=== PATIENT | male | born 1940 | race African-American/Black ===

== ENCOUNTER 2023-06-25 06:30 | Inpatient (IN) | payer OTHER, SELFPAY ==
--- NOTE | 2023-06-10 11:06 | CM ---
Patient is scheduled for an elective L TKR on 06/25/23. Spoke with patient prior to surgery via telephone. Introduced role of Orthopedic Navigator. Patient reports that he lives with his in a multi story home. There are no steps to enter, five
steps to the second floor, five to the third and then five more to his bedroom. He currently functions independently. He has a cane and shower seat. He has had VN services. PCP is Minnie Arreguin.
Discussed orthopedic program and post surgical plans. Reviewed anticipated length of stay and that goal is for him to return home at discharge. Also reviewed outpatient PT. Patient is in agreement with tentative plan and will go directly to
outpatient PT at [facility]. He will have support from his when he goes home.
Patient will complete online education.
Plan: Orthopedic Navigator will remain available to assist with the care of patient and will reassess discharge needs after surgery.
[2023-06-11 13:28] VITALS: BMI 39.9
[2023-06-11 13:45] LABS: Hematocrit 34.1 % (39.0-52.0); Mean Corp Hgb Conc. 32.3 g/dL (33.0-37.0); Mean Corpuscular Hgb 27.2 pg (27.0-31.0); Mean Corpuscular Volume 84.4 fL (80.0-94.0); Mean Platelet Volume 9.3 fL (7.4-10.4); Platelet Count 268 10^3/uL (130-400); Red Blood Cell Count 4.04 10^6/uL (4.70-6.10); Red Cell Dist. Width 14.6 % (11.5-14.5); White Blood Cell Count 6.7 10^3/uL (4.8-10.8)
[2023-06-11 14:24] LABS: Glycohemoglobin (HgbA1c) 6.1 % (4.0-5.6)
[2023-06-11 14:26] LABS: ALT (SGPT) 18 U/L (0-50); AST (SGOT) 22 U/L (17-59); Albumin 3.8 g/dl (3.5-5.0); Alkaline Phosphatase 75 U/L (38-126); Blood Urea Nitrogen 18 mg/dl (9-20); Calcium 8.7 mg/dl (8.4-10.2); Carbon Dioxide 30 mmol/L (22-30); Chloride 102 mmol/L (98-107); Estimated Creatinine Clearance 79 ml/min; Glucose 84 mg/dl (70-99); Potassium 3.8 mmol/L (3.5-5.1); Sodium 138 mmol/L (135-145); Total Bilirubin 0.5 mg/dl (0.2-1.3); Total Protein 7.3 g/dl (6.3-8.2); eGFR > 60.00
[2023-06-11 16:24] VITALS: BMI 39.9
[2023-06-25] VITALS (16 sets, daily range): BP systolic 103–153; BP diastolic 52–91; PULSE 93; BMI 39.9
[2023-06-25 09:01] LABS: Glucose - Point of Care 88 mg/dl (70-99)
[2023-06-25] MEDS: TYLENOL 650 MG PO ×3 (09:10→20:28)
[2023-06-25] MEDS: CELEBREX 200 MG PO (09:10)
[2023-06-25] MEDS: BACTROBAN NASAL 1 GRAM NASAL (09:11)
[2023-06-25] MEDS: NORMOSOL-R 1000 IV (09:11)
[2023-06-25 12:08] LABS: Glucose - Point of Care 99 mg/dl (70-99)
[2023-06-25] MEDS: ROXICODONE 5 MG PO (13:15)
[2023-06-25] MEDS: FLOMAX 0.400000000000000022 MG PO (13:17)
[2023-06-25] MEDS: NSS 1000 IV (13:17)
[2023-06-25 13:35] LABS: Glucose - Point of Care 142 mg/dl (70-99)
[2023-06-25] MEDS: ZOFRAN 4 MG IV (13:44)
[2023-06-25] MEDS: DILAUDID 0.25 MG IV ×2 (13:46→15:06)
[2023-06-25 16:59] LABS: Glucose - Point of Care 151 mg/dl (70-99)
[2023-06-25] MEDS: GLUCOPHAGE 1000 MG PO (17:38)
[2023-06-25] MEDS: ANCEF 5 IV (17:38)
[2023-06-25] MEDS: NOVOLOG FLEXPEN-MODERATE RESISTANCE 1 UNITS SC (18:21)
[2023-06-25] MEDS: ULTRAM 50 MG PO (20:28)
[2023-06-25] MEDS: ELIQUIS 2.5 MG PO (20:28)
[2023-06-25] MEDS: SENOKOT 17.1999999999999993 MG PO (20:28)
[2023-06-25] MEDS: LIPITOR 20 MG PO (20:29)
[2023-06-25] MEDS: BACTROBAN 2% OINTMENT 1 APPLIC NASAL (20:29)
[2023-06-25] MEDS: COLACE 100 MG PO (20:29)
[2023-06-25] MEDS: PROTONIX 40 MG PO (20:29)
[2023-06-25 22:04] LABS: Glucose - Point of Care 169 mg/dl (70-99)
[2023-06-26] MEDS: TYLENOL PO ×2 (01:30→05:04)
[2023-06-26] MEDS: ANCEF 5 IV (02:15)
[2023-06-26 03:43] VITALS: BP 136/61
[2023-06-26 06:03] VITALS: BMI 40.1
[2023-06-26 07:07] LABS: Glucose - Point of Care 126 mg/dl (70-99)
[2023-06-26 07:58] VITALS: BP 144/63
[2023-06-26] MEDS: NOVOLOG FLEXPEN-MODERATE RESISTANCE SC (08:25)
[2023-06-26] MEDS: ULTRAM 50 MG PO (08:28)
[2023-06-26] MEDS: TYLENOL 650 MG PO (08:28)
[2023-06-26] MEDS: GLUCOPHAGE 1000 MG PO (08:29)
[2023-06-26] MEDS: TOPROL XL 25 MG PO (08:29)
[2023-06-26] MEDS: SENOKOT 17.1999999999999993 MG PO (08:29)
[2023-06-26] MEDS: FLOMAX 0.400000000000000022 MG PO (08:29)
[2023-06-26] MEDS: COLACE 100 MG PO (08:30)
[2023-06-26] MEDS: BACTROBAN 2% OINTMENT 1 APPLIC NASAL (08:30)
[2023-06-26] MEDS: ELIQUIS 2.5 MG PO (08:33)
--- NOTE | 2023-06-26 08:46 | CM ---
Addendum entered by Lilly Carlisle 06/26/23 10:36:
Patient did well with therapy. He has no concerns about going home.
Original Note:
Reviewed chart and held rounds with PT, OT and nursing. Patient admitted as planned for elective L TKR. Met with patient at bedside. Confirmed information previously obtained for assessment. Also discussed discharge plans. The plan is for patient to
return home at discharge. He will have support from his when he goes home. Patient will go directly to outpatient PT and will come to [facility]. He has an appointment scheduled for Friday, 06/26.
Patient has a shower seat at home. Discussed need to obtain cane. He will need a rolling walker issued prior to discharge; PT aware and script obtained.
He will use [facility] pharmacy for discharge prescriptions.
Discharge plans were reviewed with patient's on 06/25/23.
[2023-06-26 09:08] VITALS: BP 114/58; PULSE 93
[2023-06-26] MEDS: FLUSH (NSS) 2 FLUSH IV (09:33)
[2023-06-26] MEDS: ZOFRAN 4 MG IV (09:33)
--- NOTE | 2023-06-26 10:53 | W.PN.ORTHO ---
Today's Communication / Plan
-
d/c
Assessment
.
Distal Motor Intact: Yes
Dressing:
Clean, dry and intact.
Assessment:
Tnrwti-[id number] pain med
Plan
.
Surgery / Date: Robby Chu 06/25/23
DVT Prophylaxis: Other (Eliquis)
Activity:
Out of bed.
PT/OT
Discharge Plan: Home w/ Outpatient PT
Subjective
.
.:
Patient resting comfortably.
Nausea
Vital Signs and Labs
.
Vital Signs and Labs:
Lab Results
06/11/23 13:19
06/11/23 13:19
Temp Pulse Resp BP Pulse Ox
98.5 F 86 18 144/83 93
06/26/23 07:58 06/26/23 08:29 06/26/23 07:58 06/26/23 08:29 06/26/23 07:58
Non-invasive Hgb result: 12.2
Physical Exam
-
HEENT: No pallor, cyanosis, or jaundice. Throat clear.
NECK: Supple. No JVD.
RESPIRATORY: Lungs clear to auscultation.
CVS: S1, S2 normal. RRR.� No murmur, rub or gallop.
ABDOMEN: Soft, non-tender. No distension. BS+/normal.
EXTREMITIES: strength equal, no calf pain with palpation
ORGANIZATIONAL EFFECTIVENESS CONSULTANT: AOx3. No focal deficits. electric motor analyst grossly intact
--- NOTE | 2023-06-26 11:00 | W.DS.TRANS ---
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
-
Discharge Instructions:
Discharge Diagnosis/Procedures L TKA Dr. Chu 06/25/23
Diet Diabetic, Carb Controlled
Activity With Walker
Driving Restrictions No driving
Bathing Restrictions OK to Shower
Other Services PT
Instructions:
Stand-Alone Forms: Total Hip/Knee Replacement D/C
Changes to Home Medications: Yes
Discharge Medications:
DC Medications w/original date entered in [employer]
atorvastatin 10 mg tablet 20 mg PO HS High cholesterol 04/06/13
fluticasone propionate 50 mcg/actuation nasal spray,suspension 2 spry intranasal BID Allergies 04/06/13
esomeprazole magnesium 40 mg capsule,delayed release (Nexium) 40 mg PO HS Gastrointestinal issue 02/07/19
metformin 1,000 mg tablet 1,000 mg PO BID Diabetes 02/07/19
albuterol sulfate 90 mcg/actuation aerosol inhaler 2 puff inhalation R Q4HPRN PRN sob 03/16/20
allopurinol 300 mg tablet 300 mg PO HS PRN gout 03/16/20
lisinopril 10 mg tablet 10 mg PO HS Blood pressure 03/16/20
metoprolol succinate 25 mg tablet,extended release 24 hr 25 mg PO DAILY #30 tabs 08/17/21
tamsulosin 0.4 mg capsule 0.4 mg PO DAILY #30 caps 08/17/21
torsemide 10 mg tablet 10 mg PO DAILY 06/10/23
mupirocin 2 % topical ointment 1 applic topical BID infection prevention #1 tube 06/11/23
Saccharomyces boulardii 250 mg capsule (Florastor) 250 mg PO BID #1 cap 06/26/23
acetaminophen 325 mg tablet 650 mg PO QID #0 tabs 06/26/23
apixaban 5 mg tablet (Eliquis) 2.5 mg PO BID dvt prophylaxis/afibb #0 tabs 06/26/23
cefadroxil 500 mg capsule 500 mg PO BID infection prevention #14 caps 06/26/23
docusate sodium 100 mg capsule (Colace) 100 mg PO BID stool softner #1 cap 06/26/23
gabapentin 300 mg capsule 300 mg PO HS sleep/pain #10 caps 06/26/23
hydrocodone 5 mg-acetaminophen 325 mg tablet 1 tab PO Q6H PRN 1 tab moderate pain or 2 if severe #30 tabs 06/26/23
magnesium hydroxide 400 mg/5 mL oral suspension (Milk of Magnesia) 30 ml PO HS PRN Constipation #1 mL 06/26/23
ondansetron 4 mg disintegrating tablet 4 mg PO Q6H PRN n/v #20 tabs 06/26/23
sennosides 8.6 mg tablet (Senokot) 17.2 mg PO BID laxative #2 tabs 06/26/23
Home Medication Changes
cefadroxil 500 mg capsule 500 mg PO BID infection prevention #14 caps 06/26/23�
gabapentin 300 mg capsule 300 mg PO HS sleep/pain #10 caps 06/26/23�
hydrocodone 5 mg-acetaminophen 325 mg tablet 1 tab PO Q6H PRN 1 tab moderate pain or 2 if severe #30 tabs 06/26/23�
ondansetron 4 mg disintegrating tablet 4 mg PO Q6H PRN n/v #20 tabs 06/26/23�
Pending Results: No
[2023-06-26 11:05] VITALS: BP 114/58; PULSE 93
[2023-06-26] MEDS: NORCO 5/325 1 TABLET PO (11:14)
[2023-06-26 11:27] LABS: Glucose - Point of Care 157 mg/dl (70-99)
[2023-06-26 11:52] VITALS: BP 126/61
== END 2023-06-26 12:36 | disposition home or self-care (01) | DRG 470 ==
LOC: 2 SOUTH 06:30
PROVIDERS: ADMITTING PHYSICIAN Orthopaedic Surgery; FAMILY PHYSICIAN Family Medicine
PROC: 0SRD0J9 Replacement of Left Knee Joint with Synthetic Substitute, Cemented, Open Approach (ICD-10-PCS; 2023-06-25)
PROC: 5A09357 Assistance with Respiratory Ventilation, Less than 24 Consecutive Hours, Continuous Positive Airway Pressure (ICD-10-PCS; 2023-06-26)
DX: M17.12 Unilateral primary osteoarthritis, left knee (principal); I48.92 Unspecified atrial flutter; E66.01 Morbid (severe) obesity due to excess calories; E11.9 Type 2 diabetes mellitus without complications; D64.9 Anemia, unspecified; I11.0 Hypertensive heart disease with heart failure; E78.5 Hyperlipidemia, unspecified; I48.0 Paroxysmal atrial fibrillation; I25.10 Atherosclerotic heart disease of native coronary artery without angina pectoris; K21.9 Gastro-esophageal reflux disease without esophagitis; G47.33 Obstructive sleep apnea (adult) (pediatric); J45.909 Unspecified asthma, uncomplicated; M10.9 Gout, unspecified; N40.0 Benign prostatic hyperplasia without lower urinary tract symptoms; R11.0 Nausea; Z68.39 Body mass index [BMI] 39.0-39.9, adult; Z79.84 Long term (current) use of oral hypoglycemic drugs; Z79.01 Long term (current) use of anticoagulants; Z91.041 Radiographic dye allergy status; Z91.013 Allergy to seafood
CPT/HCPCS: 36415; 73560; 80053; 82962; 83036; 85027; 86850; 86900; 86901; 87070; 97110; 97116; 97162; 97166; 97530; 97535; C1713; C1776

== ENCOUNTER 2023-07-07 13:19 | Outpatient (RCR) | payer OTHER, SELFPAY | END 2023-07-07 23:59 | disposition home or self-care (01) | LOC: RPT 13:19 | PROVIDERS: ATTENDING PHYSICIAN Orthopaedic Surgery; FAMILY PHYSICIAN Family Medicine | DX: Z47.1 Aftercare following joint replacement surgery (principal); Z96.652 Presence of left artificial knee joint; R26.89 Other abnormalities of gait and mobility; Z73.6 Limitation of activities due to disability | CPT/HCPCS: 97110; 97140; 97162; 97530 ==

== ENCOUNTER 2023-07-08 21:51 | Inpatient (IN) | payer OTHER, SELFPAY ==
[2023-07-08 18:36] VITALS: BP 147/79
--- NOTE | 2023-07-08 19:09 | ED.GENMED ---
History of Present Illness
General
Chief Complaint: Musculo-Skeletal Complaint
Source: patient
Exam Limitations: none
Time Seen by Provider: 07/08/23 18:49
Travel History
Have you had any contact with someone who has COVID-19?: No
Do you have any symptoms of coronavirus? Fever > 100 degrees, chills, cough, shortness of breath, sore throat, loss of taste or smell, muscle aches, or headache?: No
History of Present Illness
History of Present Illness:
82-year-old male total knee replacement about 2 weeks ago. Was doing well until suddenly about 1 hour prior to ER arrival he developed severe generalized knee pain. Has had bloody drainage since the surgery. No fever
Past History
Past History
ED Past Medical History: Asthma, CHF, COPD, HTN, Hypercholesterolemia, NIDDM and Other (Dyspnea, sleep apnea, pulmonary hypertension)
ED Past Surgical History: Cardiac (Cardiac catheterization which showed normal coronaries, but mild pulmonary hypertension) and Other (Trigger finger surgery)
Social History
Tobacco: Former smoker
Alcohol: None
Drug: None
Personal:
Living: with family
Employment: Retired
Family History
Family History: Other (daughter has severe trigeminal neuralgia)
Review of Systems
Review of Systems
All Other Systems: Not applicable
Constitutional: Denies fever
Respiratory: Reports no symptoms
Cardiac: Reports no symptoms
Phy Exam
Physical Exam
Physical Exam:
GENERAL: Alert and oriented. Appears uncomfortable but nontoxic
EYE: Orbits normal.
NECK: Supple
CARDIAC: Regular rate and rhythm without any obvious murmurs.
LUNGS: Clear breath sounds,normal
ABDOMEN: Soft, without focal tenderness or distention
NEUROLOGICAL: Alert and oriented , grossly non-focal
SKIN: Warm and dry
MUSCULOSKELETAL: Moderate swelling diffusely to the left lower leg. Good distal pulses and color. Good capillary refill. Lower sensation motor or sensory neurovascular intact. Large vertical incision to the anterior patella consistent with a
knee replacement. Inferior border has some slight bloody oozing. No purulent drainage. No surrounding erythema. Significant swelling to the joint.
PSYCH: Normal and appropriate interaction.
Course
Orders/Labs/Results
Orders:
Orders
07/08/23 18:41
Knee, Left 4 or More Views [CR Knee - Left 4 Or More View*] Urgent
Comment: TKR 06/25/2023
Reason For Exam: pain
07/08/23 19:06
IV Insert/Care/Rem.- Treatment PRN
Acetaminophen 1000MG/100Ml [Ofirmev] 1,000 mg in 100 ml IV ONCE
Acetaminophen IV Indication:: ED Narcotic Naive Pt-ONCE
HYDROmorphone [Dilaudid] 0.5 mg IV NOW STA
US Periph Venous LOWER Ext LT Urgent
Comment:
Reason For Exam: Swelling/left leg. Recent knee replacement
07/08/23 19:10
Ondansetron Injectable [Zofran] 4 mg .ROUTE .STK-MED ONE
07/08/23 19:14
Basic Metabolic Panel Urgent
Complete Blood Count/With Diff Urgent
07/08/23 19:16
Ondansetron Injectable [Zofran] 4 mg IV NOW STA
07/08/23 20:53
Knee Immobilizer Left-Treatmen ONCE
07/08/23 20:[address] Non Medication Order As Directed
Physician Order: aquacel dressing
Abnormal Lab Results
07/08/23
19:14
WBC 15.0 H 10^3/uL
(4.8-10.8)
RBC 3.44 L 10^6/uL
(4.70-6.10)
Hgb 9.2 L g/dL
(13.0-18.0)
Hct 28.6 L %
(39.0-52.0)
MCH 26.7 L pg
(27.0-31.0)
MCHC 32.2 L g/dL
(33.0-37.0)
RDW 16.1 H %
(11.5-14.5)
Plt Count 469 H 10^3/uL
(130-400)
Abs Immat Gran (auto) 0.1 H 10^3/uL
(0-0.05)
Absolute Neuts (auto) 11.4 H 10^3/uL
(1.4-6.5)
Absolute Monos (auto) 1.3 H 10^3/uL
(0.1-0.6)
Immature Gran % 0.7 H %
(0-0.5)
Neutrophils % 75.7 H %
(42.2-75.2)
Lymphocytes % 13.7 L %
(20.5-51.1)
Sodium 131 L mmol/L
(135-145)
Chloride 92 L mmol/L
(98-107)
Glucose 157 H mg/dl
(70-99)
07/08/23 19:14
07/08/23 19:14
Vital Signs
Initial and Last Documented VS:
Initial Vital Signs
Temp Pulse Resp BP Pulse Ox
98.9 F 104 20 147/79 95
07/08/23 18:36 07/08/23 18:36 07/08/23 18:36 07/08/23 18:36 07/08/23 18:36
Last Documented Vital Signs
Temp Pulse Resp BP Pulse Ox
98.9 F 104 20 147/79 95
07/08/23 18:36 07/08/23 18:36 07/08/23 18:36 07/08/23 18:36 07/08/23 18:36
*Radiology
Radiology exam reviewed: preliminary read by ED provider (Negative) and radiology read reviewed (Negative x-ray. Negative leg ultrasound)
*Pulse Oximetry
Patient hypoxic: no
*Critical Care Note
Total Time (30-74mins, 75-104mins- exclusive of procedures): Not Applicable
Update Note
Update Note:
Patient appears more comfortable but still with ongoing moderate pain. Sure what to make of the leukocytosis. Clinically more suspicious of a hemarthrosis which could cause a reactive leukocytosis but at least have to consider an infectious
etiology. With the leukocytosis and level of pain patient will be admitted. All testing reviewed with orthopedics.
ED Attending Note
-
Portions of this chart may have been created with voice recognition software.� Occasional wrong word or��sound alike� substitutions may have occurred due to the inherent limitations of voice recognition software.
Discharge Plan
Departure
Patient Disposition: Admit
Date of Disposition: 07/08/23
Time of Disposition: 21:22
Presentation/result/management discussed w/ accepting MD/DO: Orthopedics
Discharge Problem:
Severe left knee pain, Recent left knee arthroplasty, Probable hemarthrosis, Anemia, To consider infectious issue
Prescriptions:
No Action
fluticasone propionate 1 SPRAY spray,suspension
2 spry intranasal BID
atorvastatin 10 MG tablet
20 mg PO HS
metformin 1,000 MG tablet
1,000 mg PO BID
esomeprazole magnesium [Nexium] 40 MG capsule,delayed release(DR/EC)
40 mg PO HS
allopurinol 300 MG tablet
300 mg PO HS PRN (Reason: gout)
albuterol sulfate 1 PUFF HFA aerosol inhaler
2 puff inhalation R Q4HPRN PRN (Reason: sob)
tamsulosin 0.4 MG capsule
0.4 mg PO DAILY Qty: 30 0RF
metoprolol succinate 25 MG tablet extended release 24 hr
25 mg PO DAILY Qty: 30 0RF
torsemide 10 mg Tablet
10 mg PO DAILY
gabapentin 300 mg capsule
300 mg PO HS Qty: 10 0RF
spironolactone 25 mg tablet
12.5 mg PO DAILY
glimepiride 2 mg tablet
2 mg PO DAILY
bumetanide 1 mg tablet
1 mg PO DAILY
oxycodone 5 mg tablet
5 mg PO Q6H PRN (Reason: moderate pain)
Patient Comments:
07/08/2023: last filled 07/07/23, 30 tabs for 5 days from [facility]
oxycodone 5 mg tablet
10 mg PO Q6H PRN (Reason: severe pain)
Patient Comments:
07/08/2023: last filled 07/07/23, 30 tabs for 5 days from [facility]
dutasteride 0.5 mg capsule
0.5 mg PO DAILY
Jardiance 10 mg tablet
10 mg PO DAILY
Eliquis 5 mg tablet
5 mg PO BID
Referrals:
Minnie Arreguin DO [Family Provider] -
Interventions
Interventions:
*Risk Screen - Suicide Last Done: 07/08/23 18:58
*General Assessment Last Done: 07/08/23 18:59
*Neglect/Abuse Screening Last Done: 07/08/23 18:58
ED- Fall Risk Assessment Last Done: 07/08/23 19:24
*ED COVID-19 Vaccine History Last Done: 07/08/23 18:59
ED-Musculoskeletal Assessment Last Done: 07/08/23 19:24
[2023-07-08] MEDS: DILAUDID 0.5 MG IV ×2 (19:15→23:19)
[2023-07-08] MEDS: ZOFRAN 4 MG IV (19:16)
[2023-07-08] MEDS: OFIRMEV 100 IV (19:16)
[2023-07-08 19:27] LABS: % Basophils 0.2 % (0-2); % Eosinophils 0.9 % (0-6); % Immature Granulocytes 0.7 % (0-0.5); % Lymphocytes 13.7 % (20.5-51.1); % Monocytes 8.8 % (1.7-9.3); % Neutrophils 75.7 % (42.2-75.2); Absolute Eosinophils 0.1 10^3/uL (0-0.7); Absolute Immature Granulocytes 0.1 10^3/uL (0-0.05); Absolute Lymphocytes 2.1 10^3/uL (1.2-3.4); Absolute Monocytes 1.3 10^3/uL (0.1-0.6); Absolute Neutrophils 11.4 10^3/uL (1.4-6.5); Hematocrit 28.6 % (39.0-52.0); Hemoglobin 9.2 g/dL (13.0-18.0); Mean Corp Hgb Conc. 32.2 g/dL (33.0-37.0); Mean Corpuscular Hgb 26.7 pg (27.0-31.0); Mean Corpuscular Volume 83.1 fL (80.0-94.0); Mean Platelet Volume 8.6 fL (7.4-10.4); Nucleated Red Blood Cells % 0 % (-); Platelet Count 469 10^3/uL (130-400); Red Blood Cell Count 3.44 10^6/uL (4.70-6.10); Red Cell Dist. Width 16.1 % (11.5-14.5)
[2023-07-08 19:40] LABS: Blood Urea Nitrogen 20 mg/dl (9-20); Calcium 9.1 mg/dl (8.4-10.2); Carbon Dioxide 29 mmol/L (22-30); Chloride 92 mmol/L (98-107); Glucose 157 mg/dl (70-99); Potassium 4.4 mmol/L (3.5-5.1); Sodium 131 mmol/L (135-145); eGFR > 60.00
--- NOTE | 2023-07-08 21:14 | HPS.HSE ---
Addendum entered and electronically signed by Frank Urrutia MD 07/08/23 22:27:
Patient seen and examined independently with SUPERINTENDENT METERS.� 82-year-old male past medical history of osteoarthritis status post left total knee arthroplasty on 06/24, diabetes, obesity, anemia, hypertension, hyperlipidemia, paroxysmal atrial fibrillation on
Eliquis, HFpEF, nonobstructive CAD, GERD, obstructive sleep apnea, asthma, gout, BPH presenting for worsening left knee pain today.� He has been having intermittent bleeding from the inferior part of the postsurgical wound since surgery and pain but
symptoms worsening today.� He denies any fevers or chills.
Venous ultrasound left lower extremity does not show any evidence of DVT.� X-ray of the knee shows small suprapatellar joint effusion.� Labs show leukocytosis, hemoglobin 9.2 from 11 prior to surgery.
On examination left knee incision site appears to be scab with bleeding at the inferior border.� No obvious signs of infection.� There are some ecchymosis of the left medial thigh.��
Anemia appears to be due to postoperative blood loss. Will hold Eliquis.� Ortho consulted.� Will start cefazolin for potential wound infection.
Original Note:
Family Physician
-
Family Physician: Minnie Arreguin
Chief Complaint
-
Left knee pain
History of Present Illness
82-year-old male status post left knee arthroplasty 06/25/2023 who states he had increased pain today he has had constant oozing of blood on the left lateral aspect of his knee. He has a linear longitudinal scab in place with surrounding ecchymosis,
swelling ecchymosis extending into upper medial thigh. Patient denies any injury although states he started therapy had 3 sessions 1 being yesterday. He reports today he has had increased pain he did take 2 oxycodone for. He denies fever, chills,
chest pain, palpitations, shortness breath, cough, abdominal pain, nausea, vomit, diarrhea, urinary symptoms
He has PMH paroxysmal A-fib HTN, COPD, CHF preserved EF, HLD, morbid obesity, DM2, gout, BPH
Medical History
Past Medical History
Past Medical History: Reports Other
Additional Past Medical History:
paroxysmal A-fib
HTN
COPD
CHF preserved EF
HLD,
morbid obesity
DM2
gout
BPH
Past Surgical History: Reports Other
Additional Past Surgical History:
Trigger finger release
status post left knee arthroplasty 06/25/2023
Hemorrhoidectomy
A-fib ablation
Social History
Tobacco: Non-smoker
Alcohol: None
Drug: None
Personal:
Living: With Family ( )
Employment: Retired
Family History
Family History: Other (Mother Alzheimer's, father unknown, brother DM 2, sister renal failure, other sister CHF, other sister NV)
Allergies / Home Medications
Allergies reflects when Allergies were last updated in [employer].
Home Medications with original date entered in [employer]
Allergy/Medication List:
Allergies
Allergy/AdvReac Type Severity Reaction Status Date / Time
iodine Allergy Swelling Verified 07/08/23 18:35
shellfish derived Allergy SWELLING Verified 07/08/23 18:35
AND HIVES
Home Medications
atorvastatin 10 mg tablet 20 mg PO HS High cholesterol 04/06/13
fluticasone propionate 50 mcg/actuation nasal spray,suspension 2 spry intranasal BID Allergies 04/06/13
esomeprazole magnesium 40 mg capsule,delayed release (Nexium) 40 mg PO HS Gastrointestinal issue 02/07/19
metformin 1,000 mg tablet 1,000 mg PO BID Diabetes 02/07/19
albuterol sulfate 90 mcg/actuation aerosol inhaler 2 puff inhalation R Q4HPRN PRN sob 03/16/20
allopurinol 300 mg tablet 300 mg PO HS PRN gout 03/16/20
metoprolol succinate 25 mg tablet,extended release 24 hr 25 mg PO DAILY #30 tabs 08/17/21
tamsulosin 0.4 mg capsule 0.4 mg PO DAILY #30 caps 08/17/21
torsemide 10 mg tablet 10 mg PO DAILY 06/10/23
gabapentin 300 mg capsule 300 mg PO HS sleep/pain #10 caps 06/26/23
apixaban 5 mg tablet (Eliquis) 5 mg PO BID dvt prophylaxis/afibb 07/08/23
bumetanide 1 mg tablet 1 mg PO DAILY 07/08/23
dutasteride 0.5 mg capsule 0.5 mg PO DAILY 07/08/23
empagliflozin 10 mg tablet (Jardiance) 10 mg PO DAILY 07/08/23
glimepiride 2 mg tablet 2 mg PO DAILY 07/08/23
oxycodone 5 mg tablet 5 mg PO Q6H PRN moderate pain 07/08/23
oxycodone 5 mg tablet 10 mg PO Q6H PRN severe pain 07/08/23
spironolactone 25 mg tablet 12.5 mg PO DAILY 07/08/23
Review of Systems
-
History Source: Patient and Family (Son at bedside)
A 12 point ROS was completed and negative except as noted: Yes
Constitutional: Denies Fever
EENT: Denies Sore Throat or Runny Nose
Respiratory: Denies Cough or Trouble Breathing
Cardiac: Denies Chest Pain, Diaphoresis, Palpitations or Syncope
Abdomen/GI: Denies Abdominal Pain, Nausea, Vomiting, Diarrhea, Constipated or Bloody Stools
: Denies Dysuria, Frequency, Flank Pain, Incontinence or Difficulty Voiding
Musculoskeletal: Reports Joint Pain (Left knee) and Joint Swelling (Left knee with sanguinous scant drainage lateral aspect, ecchymosis to knee and medial aspect of thigh)
Skin: Denies Itching or Rash
Neurological: Denies Dizzy or Headache
Endocrine: Reports No Symptoms
Hematologic/Lymphatic: Reports No Symptoms
Psych: Reports Calm
Physical Exam
Vital Signs
Vital Signs
Temp Pulse Resp BP Pulse Ox
98.9 F 104 20 147/79 95
07/08/23 18:36 07/08/23 18:36 07/08/23 18:36 07/08/23 18:36 07/08/23 18:36
Physical Exam
General: Pain; No Fever or Chills
HEENT: NormoCephalic, Anicteric, Moist mucous membranes, PERRLA and Arbutus Conjunctivae
Respiratory: Clear; No Wheezes, Rales or Rhonchi
Cardiac: S1/S2, Regular Rhythm and Peripheral Edema (Left lower extremity); No Murmur, Rub or Gallop
GI: Soft, Non Tender, Non Distended, Normal Bowel Sounds and No Hepatosplenomegaly
Rectal: Deferred by Provider
Genito-urinary: Deferred by me
Musculoskeletal: No Clubbing, No Cyanosis and Edema, Left Lower Extremity (Left knee with sanguinous scant drainage lateral aspect with no surrounding erythema but ecchymosis to knee and medial aspect of thigh); No Edema, Left Upper Extremity or
Edema, Right Upper Extremity
Skin: Warm and Dry; No Rash
Neuro: AO x 3, No Motor Deficits, Nonfocal/grossly intact, Cranial Nerves Intact and No Sensory Deficits; No Slurred Speech, Facial Droop or Tremors
Psych: Calm
Laboratory Results
-
07/08/23 19:14
07/08/23 19:14
Impression/Plan
-
Impression/plan:
Admit to [facility]
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
scant bleeding surgical site left lateral aspect
#Left knee OA
WBC 15, afebrile
-Consult Dr. Chu-Dr. Wiseman made aware
- Iv Ancef
-Hold Eliquis
-Continue oxycodone 5 mg moderate pain, 10 mg severe pain
Peripheral vascular ultrasound no DVT
Knee x-ray left: Left total knee replacement satisfactory position small suprapatellar joint effusion
#Postop anemia
Hgb 9.2 was 11 on 06/11/2023
#Paroxysmal A-fib
#Dx 10/01/2021
#History of ablation
-Hold Eliquis
-Continue metoprolol succinate 25 mg daily
#DM2/diabetic neuropathy
Accu-Cheks with SSI, check HgbA1c
-Continue metformin without milligrams twice daily, glimepiride 2 mg p.o. daily, Jardiance 10 mg daily
-Continue gabapentin 300 mg at bedtime
#Chronic CHF preserved EF
I/O, daily weights
Continue Jardiance, Bumex 1 mg daily, torsemide 10 mg daily
#HLD
Continue atorvastatin 20 mg at bedtime
#GERD
Continue Nexium 40 mg at bedtime
#BPH
Continue dutasteride, Flomax 0.4 mg daily
#Gout
-Continue allopurinol
Morbid obesity due to excess calorie consumption
Weight loss recommended, 1800 ADA low-fat diet
DVT prophylaxis
Hold current Eliquis
DNR per patient with son at bedside
[2023-07-08 21:50] VITALS: BMI 34.9
[2023-07-08 22:12] VITALS: BP 127/59
[2023-07-08] MEDS: ROXICODONE 10 MG PO (22:21)
[2023-07-08] MEDS: ANCEF 5 IV (22:21)
[2023-07-08] MEDS: FLUSH (NSS) 1 FLUSH IV (22:22)
[2023-07-08] MEDS: NEURONTIN 300 MG PO (23:20)
[2023-07-08] MEDS: LIPITOR 20 MG PO (23:20)
[2023-07-08] MEDS: PROTONIX 40 MG PO (23:20)
[2023-07-08 23:30] VITALS: BP 157/78; BMI 34.5
--- NOTE | 2023-07-08 23:45 | PTCARENOTE ---
Pt. arrived to from ER around 2119 via stretcher and walked to room bed with walker and steady gait. Shortly after pt. c/o 10/10 L knee pain and calling out in pain, house PROPERTY CUSTODIAN contacted and pain meds given, see MAR. Otherwise pt. is A&Ox3, even
and unlabored breathing on RA, and denies other complaints. Pt. educated on policies and plan of care. Bed locked and in lowest position, side rails in place, call light within reach, and questions answered at time of assessment.
[2023-07-09 03:00] VITALS: BP 120/63
[2023-07-09 03:36] VITALS: BMI 34.5
[2023-07-09] MEDS: ROXICODONE 10 MG PO ×3 (04:13→21:31)
[2023-07-09 05:38] VITALS: BMI 34.8
[2023-07-09] MEDS: DILAUDID 0.5 MG IV (05:47)
[2023-07-09] MEDS: ANCEF 5 IV ×3 (05:47→21:53)
[2023-07-09] MEDS: FLUSH (NSS) 3 FLUSH IV (05:47)
[2023-07-09 06:27] LABS: % Basophils 0.3 % (0-2); % Eosinophils 1.2 % (0-6); % Immature Granulocytes 0.7 % (0-0.5); % Lymphocytes 13.4 % (20.5-51.1); % Monocytes 9.5 % (1.7-9.3); % Neutrophils 74.9 % (42.2-75.2); Absolute Eosinophils 0.1 10^3/uL (0-0.7); Absolute Immature Granulocytes 0.1 10^3/uL (0-0.05); Absolute Lymphocytes 1.6 10^3/uL (1.2-3.4); Absolute Monocytes 1.1 10^3/uL (0.1-0.6); Hematocrit 25.2 % (39.0-52.0); Mean Corp Hgb Conc. 31.7 g/dL (33.0-37.0); Mean Corpuscular Hgb 26.8 pg (27.0-31.0); Mean Corpuscular Volume 84.6 fL (80.0-94.0); Mean Platelet Volume 8.8 fL (7.4-10.4); Nucleated Red Blood Cells % 0 % (-); Platelet Count 434 10^3/uL (130-400); Red Blood Cell Count 2.98 10^6/uL (4.70-6.10); Red Cell Dist. Width 15.9 % (11.5-14.5)
--- NOTE | 2023-07-09 06:29 | DOWNTIME ---
There was a [employer] Client Media Intern Downtime on 07/09/2023 from 0100 to 07/09/2023 at 0322. Downtime documentation of patient's care, including medication administrations, has been reconciled in the electronic record per guidelines. Refer to the
patient's paper chart under the miscellaneous tab to see printed paper medication records and downtime forms.
[2023-07-09 06:55] LABS: ALT (SGPT) 19 U/L (0-50); AST (SGOT) 24 U/L (17-59); Albumin 3.4 g/dl (3.5-5.0); Alkaline Phosphatase 76 U/L (38-126); Blood Urea Nitrogen 19 mg/dl (9-20); Calcium 8.7 mg/dl (8.4-10.2); Carbon Dioxide 29 mmol/L (22-30); Chloride 92 mmol/L (98-107); Estimated Creatinine Clearance 91 ml/min; Glucose 95 mg/dl (70-99); Potassium 4.4 mmol/L (3.5-5.1); Sodium 130 mmol/L (135-145); Total Bilirubin 0.9 mg/dl (0.2-1.3); eGFR > 60.00
[2023-07-09 07:30] VITALS: BP 129/62
[2023-07-09 07:42] LABS: Glucose - Point of Care 105 mg/dl (70-99)
[2023-07-09] MEDS: NOVOLOG FLEXPEN-LOW RESISTANCE SC ×2 (07:48→17:22)
[2023-07-09] MEDS: GLUCOPHAGE 1000 MG PO ×2 (08:30→17:23)
[2023-07-09] MEDS: BUMEX 1 MG PO (08:30)
[2023-07-09] MEDS: TOPROL XL 25 MG PO (08:31)
[2023-07-09] MEDS: DEMADEX 10 MG PO (08:32)
[2023-07-09] MEDS: AMARYL 2 MG PO (08:33)
[2023-07-09] MEDS: ALDACTONE 12.5 MG PO (08:33)
[2023-07-09] MEDS: PROSCAR 5 MG PO (08:34)
[2023-07-09] MEDS: JARDIANCE 10 MG PO (08:34)
[2023-07-09] MEDS: FLOMAX 0.400000000000000022 MG PO (08:34)
[2023-07-09] MEDS: ProAIR HFA INHALER 2 PUFF INH (08:58)
--- NOTE | 2023-07-09 10:08 | W.PN.UPDATE ---
Update Note
Progress Note Update
Patient was seen and examined this morning. Patient is status post left total knee arthroplasty [address] Chu admitted to the increase sudden pain without injury or event and some mild bleeding at the distal incision send staple
removal. On examination there is generalized swelling as expected and he is neurovascular intact however pain is significant with range of motion 5 to 20 degrees with reported outpatient PT. Discussed with attending.
Recommend knee immobilizer in extension to avoid any tension on the incision for 1 week. May be weightbearing as tolerated utilizing the knee immobilizer. Will obtain inflammatory markers for trending purposes if concern elevates for
periprosthetic joint infection. Recommend outpatient follow-up in 1 week for skin check and will continue to follow while admitted.
[2023-07-09] MEDS: MILK OF MAGNESIA 30 ML PO (10:46)
[2023-07-09] MEDS: ROXICODONE 5 MG PO (10:49)
[2023-07-09 10:53] VITALS: BP 119/51; PULSE 74; O2SAT 94
[2023-07-09 10:55] VITALS: BP 119/51; PULSE 74; O2SAT 94
[2023-07-09 11:25] LABS: Erythrocyte Sed Rate 79 mm/hour (0-20)
[2023-07-09 11:26] LABS: Glucose - Point of Care 157 mg/dl (70-99)
--- NOTE | 2023-07-09 12:11 | W.PN.HOSP.TC ---
Today's Communication/Plan
-
Discussed with the patient and the nurse
Assessment / Plan
Assessment / Plan
Physical exam:
General: Awake, alert and oriented x3, not in distress and holds appropriate conversation.
HEENT: No active discharge, ecchymosis or bruising, moist lips, tongue and mucous membrane.
Eyes: No discharge or red conjunctiva, no nystagmus, pupils are reactive and equal
Neck:Supple, no JVD no bruit no goiter.
Respiratory: Normal AP contour and diameter, normal chest wall movement, normal respiratory effort, no respiratory distress,
Lungs: Good air entry bilaterally, no wheezing or rhonchi, no rales or crackles
Heart: S1, S2 regular, normal rate, no added sound.
Gastrointestinal: Positive bowel sounds, soft, nontender, no guarding or rigidity or organomegaly
Musculoskeletal: Swelling of the left knee and incision looks dry and no active discharge through it, left knee in immobilizer. Mild tenderness left knee, no chest wall abnormality or tenderness. All other joints and extremities have good range of
motion, no muscle tenderness or any joint swelling or tenderness.
Skin: Warm and dry, no ulceration, normal color.
Neurological: Awake, alert and oriented x3, no facial droop, speech clear and comprehensive, good muscle tone, normal sensory and motor function
Psychiatric: Normal mood, normal thought and judgment, normal affect,
Assessment and plan:
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
Most likely triggered by being on Eliquis, denies any trauma or accidental fall.
#Left knee OA
WBC 15, afebrile
-Ortho input appreciated, they recommended immobilizer.
- Iv Ancef
-Continue to hold Eliquis
-Continue oxycodone 5 mg moderate pain, 10 mg severe pain
Peripheral vascular ultrasound no DVT
Knee x-ray left: Left total knee replacement satisfactory position small suprapatellar joint effusion
#Postop anemia, post left knee replaced
Hgb 9.2 was 11 on 06/11/2023, trending down hemoglobin is 8 today
Likely secondary to postoperative blood loss anemia specially been on Eliquis.
Continue to monitor
Above transfusion threshold
Recheck hemoglobin
Ortho input appreciated
Constipation:
Patient admitted did not move his bowels in the last 5-day but passes gas and no nausea vomiting abdominal pain possible secondary to decreased mobility and pain medication
Given a dose of milk of magnesia
Add Colace 100 twice daily and reassess
Cholesterol hydration.
If did not move his bowels and may consider other modalities like suppository or enema.
#Paroxysmal A-fib
#Dx 10/01/2021
#History of ablation
-Hold Eliquis, risks of holding Eliquis
To the patient at increased risk for thromboembolism
-Continue metoprolol succinate 25 mg daily
#DM2/diabetic neuropathy
Accu-Cheks with SSI,
-Continue metformin without milligrams twice daily, glimepiride 2 mg p.o. daily, Jardiance 10 mg daily
-Continue gabapentin 300 mg at bedtime
Continue to monitor blood sugar closely
#Chronic CHF preserved EF
-No evidence of fluid overload
I/O, daily weights
Continue Jardiance, Bumex 1 mg daily, torsemide 10 mg daily
#HLD
Continue atorvastatin 20 mg at bedtime
#GERD
Continue Nexium 40 mg at bedtime
#BPH
Continue dutasteride, Flomax 0.4 mg daily
#Gout
-Continue allopurinol
Morbid obesity due to excess calorie consumption
Weight loss recommended, 1800 ADA low-fat diet
DVT prophylaxis
Hold current Eliquis
Add SCD
Will monitor for the next 24 hours and reassess especially hemoglobin trending down.
DNR per patient with son at bedside
Anticipated Discharge: 24 - 48 hours
Subjective/Interval History
-
Date of Service: July 09, 2023
Seen and examined, awake and alert, denies any fall or accident, no active discharge from the left knee incision given no bleeding.
Admit the pain is better controlled right now, no fever or chill or cough or congestion, no weakness or numbness in extremities, no hematuria or any rectal bleed.
Kody is on hold.
Admit did not move his bowels in the last 5 days but passes gas and there is no nausea or vomiting or abdominal pain.
Objective Data
-
Labs:
Laboratory Results
07/09/23
05:11
WBC 12.0 H
Hgb 8.0 L
Hct 25.2 L
Plt Count 434 H
Sodium 130 L
Potassium 4.4
Chloride 92 L
Carbon Dioxide 29
BUN 19
Creatinine 0.8
Glucose 95
Calcium 8.7
Total Bilirubin 0.9
AST 24
ALT 19
Alkaline Phosphatase 76
Vital Signs:
Vital Signs
Temp Pulse Resp BP Pulse Ox
98.3 F 74 16 129/62 95
07/09/23 07:30 07/09/23 09:04 07/09/23 09:04 07/09/23 08:33 07/09/23 09:04
I&O
07/08/23 07/09/23 07/10/23
07:59 07:59 07:59
Intake Total 480 / 480
Output Total 600 / 600
Balance -120 / -120
[2023-07-09] MEDS: NOVOLOG FLEXPEN-LOW RESISTANCE 1 UNITS SC (12:25)
[2023-07-09 15:30] VITALS: BP 125/60
--- NOTE | 2023-07-09 15:32 | CM ---
Spoke with patient to obtain information for assessment. Patient stated that he lives in a multi-story home with no steps with his spouse and grandkids.
Patient described himself as independent with his ADLs, personal care, bathing and dressing. He uses a walker to navigate the steps and a walker for long distances.
Patient stated that his family assists with order processor, cooking, cleaning and laundry. He does not drive but his is able to transport her to her appointments and takes her shopping.
Patient has never had VN services or been to a SNF in the past.
He has a prescription plan and he uses [facility] in [place] for all of his medications. His PCP is Dr. Minnie Chow.
Patient was firm that he does not want to go to a SNF post this admission. He was agreeable to VN services if indicated.
Plan: Case management will continue to follow and assist with discharge planning. Will watch for VN needs.
[2023-07-09 16:55] LABS: Glucose - Point of Care 118 mg/dl (70-99)
[2023-07-09 18:22] LABS: Hemoglobin 8.2 g/dL (13.0-18.0)
[2023-07-09] MEDS: COLACE 100 MG PO (21:53)
[2023-07-09] MEDS: LIPITOR 20 MG PO (21:54)
[2023-07-09] MEDS: NEURONTIN 300 MG PO (21:54)
[2023-07-09] MEDS: FLUSH (NSS) 2 FLUSH IV (21:54)
[2023-07-09] MEDS: PROTONIX 40 MG PO (21:54)
[2023-07-09 21:57] LABS: Glucose - Point of Care 89 mg/dl (70-99)
[2023-07-09 23:15] VITALS: BP 140/56
[2023-07-10] MEDS: ROXICODONE 10 MG PO ×2 (03:15→20:47)
[2023-07-10] MEDS: ProAIR HFA INHALER 2 PUFF INH ×2 (03:42→09:35)
[2023-07-10 04:55] LABS: % Basophils 0.3 % (0-2); % Eosinophils 1.9 % (0-6); % Immature Granulocytes 0.4 % (0-0.5); % Lymphocytes 17.8 % (20.5-51.1); % Monocytes 10.8 % (1.7-9.3); % Neutrophils 68.8 % (42.2-75.2); Absolute Eosinophils 0.2 10^3/uL (0-0.7); Absolute Immature Granulocytes 0.1 10^3/uL (0-0.05); Absolute Monocytes 1.2 10^3/uL (0.1-0.6); Absolute Neutrophils 7.9 10^3/uL (1.4-6.5); Hematocrit 26.6 % (39.0-52.0); Hemoglobin 8.4 g/dL (13.0-18.0); Mean Corp Hgb Conc. 31.6 g/dL (33.0-37.0); Mean Corpuscular Hgb 26.3 pg (27.0-31.0); Mean Corpuscular Volume 83.1 fL (80.0-94.0); Mean Platelet Volume 8.9 fL (7.4-10.4); Nucleated Red Blood Cells % 0 % (-); Platelet Count 397 10^3/uL (130-400); Red Cell Dist. Width 15.8 % (11.5-14.5); White Blood Cell Count 11.4 10^3/uL (4.8-10.8)
[2023-07-10] MEDS: FLUSH (NSS) 3 FLUSH IV (05:11)
[2023-07-10] MEDS: DILAUDID 0.5 MG IV (05:12)
[2023-07-10] MEDS: ANCEF 5 IV ×3 (05:12→22:40)
[2023-07-10 05:30] LABS: ALT (SGPT) 17 U/L (0-50); AST (SGOT) 29 U/L (17-59); Albumin 3.4 g/dl (3.5-5.0); Alkaline Phosphatase 78 U/L (38-126); Blood Urea Nitrogen 21 mg/dl (9-20); Calcium 8.9 mg/dl (8.4-10.2); Carbon Dioxide 25 mmol/L (22-30); Chloride 92 mmol/L (98-107); Estimated Creatinine Clearance 91 ml/min; Glucose 82 mg/dl (70-99); Potassium 4.5 mmol/L (3.5-5.1); Sodium 126 mmol/L (135-145); Total Bilirubin 1.1 mg/dl (0.2-1.3); Total Protein 7.3 g/dl (6.3-8.2); eGFR > 60.00
[2023-07-10 06:00] VITALS: BMI 34.9
[2023-07-10 07:45] VITALS: BP 133/66
[2023-07-10 08:24] VITALS: BP 133/66
[2023-07-10 08:38] LABS: Glucose - Point of Care 103 mg/dl (70-99)
[2023-07-10] MEDS: NOVOLOG FLEXPEN-LOW RESISTANCE SC ×3 (08:56→17:24)
[2023-07-10] MEDS: DILAUDID 2 MG PO ×2 (09:02→22:01)
[2023-07-10] MEDS: GLUCOPHAGE 1000 MG PO ×2 (09:05→16:36)
[2023-07-10] MEDS: BUMEX 1 MG PO (09:05)
[2023-07-10] MEDS: FLOMAX 0.400000000000000022 MG PO (09:05)
[2023-07-10] MEDS: DEMADEX 10 MG PO (09:05)
[2023-07-10] MEDS: JARDIANCE 10 MG PO (09:05)
[2023-07-10] MEDS: ALDACTONE 12.5 MG PO (09:06)
[2023-07-10] MEDS: AMARYL 2 MG PO (09:06)
[2023-07-10] MEDS: TOPROL XL 25 MG PO (09:06)
[2023-07-10] MEDS: PROSCAR 5 MG PO (09:06)
[2023-07-10] MEDS: COLACE 100 MG PO (09:06)
--- NOTE | 2023-07-10 09:42 | PN.CDI ---
CDI
- -
CDI:
Physician Documentation Request
Admit Date: 07/08/23 21:51
Dear Doctor Lan,
Patient admitted with left knee hemarthrosis status post left knee arthroplasty 06/25/2023.
Na levels documented below:
Laboratory Test
07/08/23 07/09/23 07/10/23
19:14 05:11 04:11
Sodium 131 L 130 L 126 L
Based on the above, please clarify in the progress notes, the appropriate diagnosis, if significant, that supports the above abnormalities and additional evaluation, monitoring and/or treatment rendered:
Hyponatremia
Insignificant abnormal lab findings
Other
Use of terms such as suspected, likely, concern for, or probable (associated with a specific diagnosis that is being evaluated, monitored, or treated as if it exists) are acceptable and can be coded in the inpatient setting, when documented at the
time of discharge.
Thank you,
Carrie COTE,RN,CCDS
CDI Specialist
Available via tiger text
Please use your independent medical judgment in providing your response.
[2023-07-10] MEDS: MILK OF MAGNESIA 30 ML PO (10:50)
[2023-07-10 11:36] LABS: Glucose - Point of Care 113 mg/dl (70-99)
--- NOTE | 2023-07-10 12:19 | W.PN.UPDATE ---
Update Note
Progress Note Update
82 year old male with sudden increase left knee pain 2 weeks s/p left TKA.
CRP 163
ESR 79
Afebrile. VSS.
Left knee: moderate diffuse swelling and tenderness to palpation. apprehensive to perform ROM. Aquacel with bloody drainage at distal portion. removed to reveal mild sanguinous oozing. No erythema or warmth.
Assessment: Left knee pain s/p left TKA.
Plan: Inflammatory markers elevated, but patient is only 2 weeks post op. Vital signs are stable, white count is trending down, and patient is afebrile. Would recommend continued observation and use of knee immobilizer for incision rest. He has
been on IV ancef, so any aspiration may be tainted by antibiotic use. Recommend serial ESR and CRP for trending purposes. Will change pain medications to see if this improves symptoms. Will continue to monitor response to medication changes.
--- NOTE | 2023-07-10 13:56 | W.PN.HOSP.TC ---
Addendum entered and electronically signed by Destiny Montenegro MD 07/10/23 17:06:
Other impression is hyponatremia, present on admission worsening likely secondary to pain
Monitoring recheck
If not improved then may consider fluid restriction
Original Note:
Today's Communication/Plan
-
All discussed with the patient
Discussed with the nurse
Assessment / Plan
Assessment / Plan
Physical exam:
General: Awake, alert and oriented x3, not in distress and holds appropriate conversation.
HEENT: No active discharge, ecchymosis or bruising, moist lips, tongue and mucous membrane.
Eyes: No discharge or red conjunctiva, no nystagmus, pupils are reactive and equal
Neck:Supple, no JVD no bruit no goiter.
Respiratory: Normal AP contour and diameter, normal chest wall movement, normal respiratory effort, no respiratory distress,
Lungs: Good air entry bilaterally, no wheezing or rhonchi, no rales or crackles
Heart: S1, S2 regular, normal rate, no added sound.
Gastrointestinal: Positive bowel sounds, soft, nontender, no guarding or rigidity or organomegaly
Musculoskeletal: Swelling of the left knee and incision looks dry and no active discharge through it, left knee in immobilizer. Mild tenderness left knee, no chest wall abnormality or tenderness. All other joints and extremities have good range of
motion, no muscle tenderness or any joint swelling or tenderness.
Skin: Warm and dry, no ulceration, normal color.
Assessment and plan:
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
Most likely triggered by being on Eliquis, denies any trauma or accidental fall.
Still having appreciating intractable pain he is able to pain medication
Inflammatory markers are elevated but he is on antibiotic
Ortho is on monitoring given to be in the hospital for now.
No planning for aspiration because patient already got antibiotic according to Ortho.
Adjustment of pain medication
Continue knee immobilizer.
#Left knee OA
WBC 15, afebrile
-Ortho input appreciated, they recommended immobilizer.
- Iv Ancef
-Continue to hold Eliquis
-Continue oxycodone 5 mg moderate pain, 10 mg severe pain
Peripheral vascular ultrasound no DVT
Knee x-ray left: Left total knee replacement satisfactory position small suprapatellar joint effusion
#Postop anemia, post left knee replaced
Hgb 9.2 was 11 on 06/11/2023, trending down hemoglobin is 8 today
Likely secondary to postoperative blood loss anemia specially been on Eliquis.
Continue to monitor
Above transfusion threshold
Recheck hemoglobin
Ortho input appreciated
Constipation:
Patient admitted did not move his bowels in the last 5-day but passes gas and no nausea vomiting abdominal pain possible secondary to decreased mobility and pain medication
Given a dose of milk of magnesia
Add Colace 100 twice daily and reassess
Cholesterol hydration.
If did not move his bowels and may consider other modalities like suppository or enema.
#Paroxysmal A-fib
#Dx 10/01/2021
#History of ablation
-Hold Eliquis, risks of holding Eliquis
To the patient at increased risk for thromboembolism
-Continue metoprolol succinate 25 mg daily
#DM2/diabetic neuropathy
Accu-Cheks with SSI,
-Continue metformin without milligrams twice daily, glimepiride 2 mg p.o. daily, Jardiance 10 mg daily
-Continue gabapentin 300 mg at bedtime
Continue to monitor blood sugar closely
#Chronic CHF preserved EF
-No evidence of fluid overload
I/O, daily weights
Continue Jardiance, Bumex 1 mg daily, torsemide 10 mg daily
#HLD
Continue atorvastatin 20 mg at bedtime
#GERD
Continue Nexium 40 mg at bedtime
#BPH
Continue dutasteride, Flomax 0.4 mg daily
#Gout
-Continue allopurinol
Morbid obesity due to excess calorie consumption
Weight loss recommended, 1800 ADA low-fat diet
DVT prophylaxis
Hold current Eliquis
Add SCD
Will monitor for the next 24 hours and reassess especially hemoglobin trending down.
DNR per patient with son at bedside on admission
Anticipated Discharge: 24 - 48 hours
Subjective/Interval History
-
Date of Service: July 10, 2023
Seen and examined, awake and alert, still having excruciating pain in the left knee but pain medication helped out as she gets frequent pain medication.
Afebrile, no nausea or vomiting, also having some redness around the left knee, left knee immobilizer, no active discharge or bleeding from the left knee.
He is status post 2-week post left knee replacement.
Did not move his bowels yet.
Objective Data
-
Labs:
Laboratory Results
07/10/23
04:11
WBC 11.4 H
Hgb 8.4 L
Hct 26.6 L
Plt Count 397
Sodium 126 L
Potassium 4.5
Chloride 92 L
Carbon Dioxide 25
BUN 21 H
Creatinine 0.8
Glucose 82
Calcium 8.9
Total Bilirubin 1.1
AST 29
ALT 17
Alkaline Phosphatase 78
Vital Signs:
Vital Signs
Temp Pulse Resp BP Pulse Ox
98.8 F 87 19 133/66 95
07/10/23 07:45 07/10/23 07:45 07/10/23 07:45 07/10/23 07:45 07/10/23 07:45
I&O
07/09/23 07/10/23 07/11/23
07:59 07:59 07:59
Intake Total 480 / 480 780 / 780
Output Total 600 / 600 1850 / 1850
Balance -120 / -120 -1070 / -1070
Review of Systems
-
All other systems: Reviewed and negative
--- NOTE | 2023-07-10 14:56 | CM ---
Discharge Plan of Care: Home with [facility] VN and PT services.
[2023-07-10 15:51] VITALS: BP 130/64
--- NOTE | 2023-07-10 16:02 | VNURNOTE ---
Home Health Liaison met with patient at 1500 to discuss [facility] nurse/therapy, visits, schedule and homebound status. Patient is agreeable and understands that visits at home will be 2-3 x per week to assess and teach medical management.
[facility] brochure provided with contact information. Patient is aware that [facility] will contact him for start of care in 1-2 days after discharge from .
[facility] referral completed by CM in [facility].
[2023-07-10] MEDS: GLYCERIN SUPPOSITORY ADULT 1 SUPP RECTAL (16:36)
[2023-07-10 17:23] LABS: Glucose - Point of Care 87 mg/dl (70-99)
[2023-07-10] MEDS: COLACE PO (20:04)
[2023-07-10] MEDS: LIPITOR 20 MG PO (21:01)
[2023-07-10] MEDS: PROTONIX 40 MG PO (21:01)
[2023-07-10] MEDS: NEURONTIN 300 MG PO (21:01)
[2023-07-10 21:53] LABS: Glucose - Point of Care 96 mg/dl (70-99)
[2023-07-10 23:20] VITALS: BP 102/70
[2023-07-11] MEDS: DILAUDID 2 MG PO ×3 (02:03→16:43)
[2023-07-11] MEDS: ROXICODONE 10 MG PO ×2 (04:12→13:36)
[2023-07-11] MEDS: ANCEF 5 IV ×2 (05:25→13:46)
[2023-07-11 06:00] VITALS: BMI 34.3
[2023-07-11 06:22] LABS: % Basophils 0.2 % (0-2); % Eosinophils 0.4 % (0-6); % Immature Granulocytes 0.6 % (0-0.5); % Monocytes 13.8 % (1.7-9.3); Absolute Eosinophils 0.1 10^3/uL (0-0.7); Absolute Immature Granulocytes 0.1 10^3/uL (0-0.05); Absolute Lymphocytes 1.1 10^3/uL (1.2-3.4); Absolute Monocytes 1.7 10^3/uL (0.1-0.6); Absolute Neutrophils 9.6 10^3/uL (1.4-6.5); Hematocrit 25.2 % (39.0-52.0); Hemoglobin 8.2 g/dL (13.0-18.0); Mean Corp Hgb Conc. 32.5 g/dL (33.0-37.0); Mean Corpuscular Hgb 26.9 pg (27.0-31.0); Mean Corpuscular Volume 82.6 fL (80.0-94.0); Nucleated Red Blood Cells % 0 % (-); Platelet Count 398 10^3/uL (130-400); Red Blood Cell Count 3.05 10^6/uL (4.70-6.10); Red Cell Dist. Width 15.9 % (11.5-14.5); White Blood Cell Count 12.6 10^3/uL (4.8-10.8)
[2023-07-11 06:46] LABS: ALT (SGPT) 17 U/L (0-50); AST (SGOT) 30 U/L (17-59); Albumin 3.3 g/dl (3.5-5.0); Alkaline Phosphatase 79 U/L (38-126); Blood Urea Nitrogen 25 mg/dl (9-20); Calcium 8.8 mg/dl (8.4-10.2); Carbon Dioxide 28 mmol/L (22-30); Chloride 90 mmol/L (98-107); Estimated Creatinine Clearance 81 ml/min; Glucose 77 mg/dl (70-99); Potassium 4.4 mmol/L (3.5-5.1); Sodium 125 mmol/L (135-145); Total Bilirubin 1.1 mg/dl (0.2-1.3); Total Protein 7.3 g/dl (6.3-8.2); eGFR > 60.00
[2023-07-11 07:21] LABS: Erythrocyte Sed Rate 143 mm/hour (0-20)
[2023-07-11 07:35] VITALS: BP 131/55
[2023-07-11 07:37] LABS: Glucose - Point of Care 82 mg/dl (70-99)
[2023-07-11] MEDS: NOVOLOG FLEXPEN-LOW RESISTANCE SC ×3 (07:58→16:34)
[2023-07-11] MEDS: ALDACTONE 12.5 MG PO (08:24)
[2023-07-11] MEDS: BUMEX 1 MG PO (08:24)
[2023-07-11] MEDS: DEMADEX 10 MG PO (08:25)
[2023-07-11] MEDS: PROSCAR 5 MG PO (08:25)
[2023-07-11] MEDS: COLACE 100 MG PO ×2 (08:25→19:56)
[2023-07-11] MEDS: GLUCOPHAGE 1000 MG PO ×2 (08:25→16:44)
[2023-07-11] MEDS: TOPROL XL 25 MG PO (08:25)
[2023-07-11] MEDS: AMARYL 2 MG PO (08:25)
[2023-07-11] MEDS: FLOMAX 0.400000000000000022 MG PO (08:25)
[2023-07-11] MEDS: JARDIANCE 10 MG PO (08:26)
[2023-07-11 11:03] LABS: Glucose - Point of Care 119 mg/dl (70-99)
--- NOTE | 2023-07-11 13:47 | W.PN.UPDATE ---
Update Note
Progress Note Update
Dr. Chu requested left total knee arthroplasty be aspirated today. After verbal consent from patient the left knee was meticulously cleaned with ChloraPrep. Using sterile gloves left knee aspiration was attempted and 3 mL blood was aspirated.
It was only enough to send for aerobic and anaerobic cultures. Ice knee and oxycodone as needed for pain control.
[2023-07-11 14:39] VITALS: BP 125/63; PULSE 87; O2SAT 99
--- NOTE | 2023-07-11 15:09 | W.PN.HOSP.TC ---
Today's Communication/Plan
-
fluid restriction
consult ID
dexamethasone x1
check uric acid
cont ancef
Assessment / Plan
Assessment / Plan
pt is an 82 year old male
right ankle exquisite pain, warmth -- suspect gout--check uric acid levels--dexamethasone x 1--ESR and CRP markedly elevated
Left knee hemarthrosis status post left knee arthroplasty 06/25/2023 (hx of OA)--Most likely triggered by being on Eliquis, denies any trauma or accidental fall--knee in immobilizer and having pain--knee aspirated by ortho, cultures pending--WBC
increased--consult ID, ESR and CRP elevated--apprec ortho following--cont left knee immobilizer--holding eliquis--US neg for DVT--Continue oxycodone 5 mg moderate pain, 10 mg severe pain
hyponatremia--dropping since admission--fluid restrict--may need renal input
acute blood loss anemia Postop complicated by eliquis-- status post left knee replaced 06/24--hgb 8s
Constipation--pt says didn't move bowels then said had BM yesterday--cont bowel regimen
Paroxysmal A-fib/History of ablation--Hold Eliquis--Continue metoprolol succinate 25 mg daily
DM2/diabetic neuropathy--Accu-Cheks with SSI--Continue metformin without milligrams twice daily, glimepiride 2 mg p.o. daily, Jardiance 10 mg daily-Continue gabapentin 300 mg at bedtime
Chronic CHF preserved EF--no exacerbation--I/O, daily weights--Continue Jardiance, Bumex 1 mg daily, torsemide 10 mg daily
HLD--Continue atorvastatin 20 mg at bedtime
GERD--Continue Nexium 40 mg at bedtime
BPH--Continue dutasteride, Flomax 0.4 mg daily
Gout--Continue allopurinol
Morbid obesity due to excess calorie consumption--Weight loss recommended, 1800 ADA low-fat diet
DVT prophylaxis--Hold current Eliquis
Code status --DNR was discussed with patient with son at bedside on admission
Anticipated Discharge: > 48 hours
Subjective/Interval History
-
Date of Service: July 11, 2023
pt c/o right ankle pain, low back pain, and left knee pain
Objective Data
-
Labs:
Laboratory Results
07/11/23
05:20
WBC 12.6 H
Hgb 8.2 L
Hct 25.2 L
Plt Count 398
Sodium 125 L
Potassium 4.4
Chloride 90 L
Carbon Dioxide 28
BUN 25 H
Creatinine 0.9
Glucose 77
Calcium 8.8
Total Bilirubin 1.1
AST 30
ALT 17
Alkaline Phosphatase 79
Vital Signs:
max temp for 24 hours
07/10/23
15:51
Temp 98.8 F
Vital Signs
Temp Pulse Resp BP Pulse Ox
97.8 F 81 18 131/55 95
07/11/23 07:35 07/11/23 07:35 07/11/23 07:35 07/11/23 07:35 07/11/23 08:00
I&O
07/10/23 07/11/23 07/12/23
06:59 06:59 06:59
Intake Total 780 / 780 780 / 780
Output Total 1850 / 1850 1840 / 1840
Balance -1070 / -1070 -1060 / -1060
Review of Systems
-
All other systems: Reviewed and negative
Physical Exam
-
General: Well Developed, Well Nourished and No Apparent Distress
HEENT: Normocephalic and Atraumatic
Respiratory: Clear to Auscultation; Negative Wheezes, Rales, Rhonchi or Crackles
Cardiac: Regular Rhythm and S1/S2
GI: Soft, Nontender, Nondistended and Normal Bowel Sounds
Musculoskeletal: No Clubbing, No Cyanosis, No Edema and Other (right ankle tender to touch, warm---left knee is in an immobilzer)
Neuro: Awake
Psych: Calm
[2023-07-11 15:30] VITALS: BP 137/61
[2023-07-11 15:38] LABS: Uric Acid 6.4 mg/dl (3.5-8.5)
--- NOTE | 2023-07-11 15:46 | CM ---
Patient seen at bedside with physician. PT stated that patient was 2 person assist today and would benefit from SNF. Patient complained of pain in ankle, knee and back. Pending physician assessment, patient plan was to go home with family supports
and [facility]. CM will need to review plan of care and patient participation with PT/OT over weekend to determine level of care at discharge. CM will continue to follow for discharge planning needs.
Plan; home with VN; [facility] vs SNF watch for PT/OT assessment.
[2023-07-11] MEDS: MIRALAX 17 GRAMS PO (15:59)
[2023-07-11] MEDS: DECADRON 10 MG IV (15:59)
[2023-07-11 16:33] LABS: Glucose - Point of Care 138 mg/dl (70-99)
--- NOTE | 2023-07-11 16:51 | CON.ID ---
Consultation
-
Date/Time Consultation Requested: 07/11/2023 1535
Date/Time Consultation Performed: 07/11/2023 1620
Requesting Provider: Dr. Barnes
Performing Provider: Dr. Husain
Reason for Consultation: Left knee swelling; elevated inflammatory markers
Chief Complaint / Past History
History of Present Illness
Beau Hyde is an 82-year-old male being evaluated at the request of Dr. Barnes in regards to left knee swelling and pain. History is obtained from chart review, along with patient interview.
The patient underwent a total left knee replacement on 06/25/2023, with a discharged the following day. In the interim, he reports that he was doing well, although there was some reported bloody drainage from a small portion of the incision.
He presents to the ER on 07/07 after the acute onset of severe knee pain 1 hour prior. He was found to have a leukocytosis, and he was placed on empiric antibiotics (cefazolin 1 g IV every 8 hours).
No history of recent fevers, chills. Knee was aspirated earlier today.
He additionally complains of right ankle discomfort. He has been started on steroids for suspected gout.
Past History
Additional Past Medical History:
Paroxysmal A-fib (on Eliquis)
HTN
Asthma
CHF
COPD
Dyslipidemia
DM
REYNALDO
Pulmonary HTN
Additional Past Surgical History:
PCTA
Trigger finger surgery
Left knee arthroplasty (06/25/2023)
Hemorrhoidectomy
Cardiac ablation
Allergy History:
iodine Allergy (Verified 07/08/23 18:35)
Swelling
shellfish derived Allergy (Verified 07/08/23 18:35)
SWELLING AND HIVES
Medications Reviewed: Yes
Current Antibiotics:
Cefazolin 1 g IV every 8 hours (day #4)
Social History
Tobacco: Non-Smoker
Alcohol: None
Drug: None
Personal:
Living: With Family
Employment: Retired
Family History
Family History: Not Pertinent
Review of Systems
Vital Signs
Temp Pulse Resp BP Pulse Ox
98.3 F 83 17 137/61 95
07/11/23 15:30 07/11/23 15:30 07/11/23 15:30 07/11/23 15:30 07/11/23 15:30
Physical Exam
Physical Exam
Constitutional: No Acute Distress, Comfortable and Non-toxic
Head: Normocephalic
Eyes: Pupils Equal, Pupils Round, No Conjunctival Hemorrhage and Sclera Anicteric
Oral: No Thrush and No Ulcers
Cardiovascular: Irregular Rate and S1/S2; Negative S3/S4 or Murmur
Pulmonary: Clear; Negative Wheezes, Rales or Rhonchi
Gastrointestinal: Soft and Non Tender
Extremities: Edema and Erythema (Minimal; left knee area); Negative Cyanosis
Musculoskeletal: Joint Swelling (Left knee) and Joint Effusion (Left knee)
Skin: Warm and Dry; Negative Rash or Jaundice
Neurological: Awake and Alert
Psychological: Calm
Lab / Diagnostic Study Results
07/11/23 05:20
07/11/23 05:20
Abs Immat Gran (auto) 0.1 10^3/uL (0-0.05) H 07/11/23 05:20
Absolute Neuts (auto) 9.6 10^3/uL (1.4-6.5) H 07/11/23 05:20
Absolute Lymphs (auto) 1.1 10^3/uL (1.2-3.4) L 07/11/23 05:20
Absolute Monos (auto) 1.7 10^3/uL (0.1-0.6) H 07/11/23 05:20
Absolute Basos (auto) 0.0 10^3/uL (0-0.2) 07/11/23 05:20
Immature Gran % 0.6 % (0-0.5) H 07/11/23 05:20
Neutrophils % 76.0 % (42.2-75.2) H 07/11/23 05:20
Lymphocytes % 9.0 % (20.5-51.1) L 07/11/23 05:20
Monocytes % 13.8 % (1.7-9.3) H 07/11/23 05:20
Eosinophils % 0.4 % (0-6) 07/11/23 05:20
Basophils % 0.2 % (0-2) 07/11/23 05:20
ESR 143 mm/hour (0-20) H 07/11/23 05:20
C-Reactive Protein 245.90 mg/L (0.0-10.00) H 07/11/23 05:20
Microbiology Results
Micro:
07/11/23 13:54 Wound Culture - Pending
Knee - Left Gram Stain - Preliminary
Assessment / Plan
Leukocytosis
Acute left knee pain; suspect hemarthrosis secondary to anticoagulation
- Currently assessing for joint infection (status post aspiration)
Right ankle pain; suspected gout
Elevated inflammatory markers
Paroxysmal A-fib (on Eliquis)
HTN
Asthma
CHF
COPD
Dyslipidemia
DM
REYNALDO
Pulmonary HTN
Recommendations:
Continue with empiric cefazolin for the present. Presumably it was initiated for the treatment of suspected left knee cellulitis. Increased to 2 g IV every 8 hours as estimated creatinine clearance would support this dose.
Await aspiration cultures; if negative, will discontinue further antibiotics.
Monitor white count and temperature curve.
[2023-07-11] MEDS: ANCEF 10 IV (18:25)
[2023-07-11] MEDS: TYLENOL 650 MG PO (19:56)
[2023-07-11] MEDS: NEURONTIN 300 MG PO (22:02)
[2023-07-11] MEDS: PROTONIX 40 MG PO (22:02)
[2023-07-11] MEDS: LIPITOR 20 MG PO (22:02)
[2023-07-11] MEDS: SENOKOT 17.1999999999999993 MG PO (22:02)
[2023-07-11 22:17] LABS: Glucose - Point of Care 147 mg/dl (70-99)
[2023-07-12] MEDS: ANCEF 10 IV ×3 (01:42→17:28)
[2023-07-12 06:00] VITALS: BMI 33.0
[2023-07-12 07:40] VITALS: BP 125/62
[2023-07-12 08:00] LABS: Glucose - Point of Care 110 mg/dl (70-99)
[2023-07-12] MEDS: NOVOLOG FLEXPEN-LOW RESISTANCE SC ×3 (08:48→17:28)
[2023-07-12] MEDS: ALDACTONE 12.5 MG PO (08:53)
[2023-07-12] MEDS: AMARYL 2 MG PO (08:54)
[2023-07-12] MEDS: BUMEX 1 MG PO (08:54)
[2023-07-12] MEDS: FLOMAX 0.400000000000000022 MG PO (08:55)
[2023-07-12] MEDS: PROSCAR 5 MG PO (08:55)
[2023-07-12] MEDS: COLACE 100 MG PO ×2 (08:55→20:30)
[2023-07-12] MEDS: TOPROL XL 25 MG PO (08:56)
[2023-07-12] MEDS: JARDIANCE 10 MG PO (08:56)
[2023-07-12] MEDS: GLUCOPHAGE 1000 MG PO ×2 (08:56→17:28)
[2023-07-12] MEDS: MIRALAX 17 GRAMS PO (08:57)
[2023-07-12] MEDS: TYLENOL 650 MG PO ×2 (08:59→20:30)
--- NOTE | 2023-07-12 09:17 | W.PN.HOSP.TC ---
Today's Communication/Plan
-
cont fluid restriction
cont PT/OT
apprec ID/ortho
Assessment / Plan
Assessment / Plan
pt is an 82 year old male
right ankle exquisite pain, warmth -- suspected gout despite uric acid level WNL--relief with IV decadron --ESR and CRP markedly elevated--labs pending today
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
elevated--apprec ortho following--cont left knee immobilizer--holding eliquis--US neg for DVT--Continue oxycodone 5 mg moderate pain, 10 mg severe pain
hyponatremia--dropping since admission--fluid restrict--may need renal input
acute blood loss anemia Postop complicated by eliquis-- status post left knee replaced 06/24--hgb 8s
Constipation--pt says didn't move bowels then said had BM yesterday--cont bowel regimen--start suppository
Paroxysmal A-fib/History of ablation--Hold Eliquis--Continue metoprolol succinate 25 mg daily
DM2/diabetic neuropathy--Accu-Cheks with SSI--Continue metformin without milligrams twice daily, glimepiride 2 mg p.o. daily, Jardiance 10 mg daily-Continue gabapentin 300 mg at bedtime
Chronic CHF preserved EF--no exacerbation--I/O, daily weights--Continue Jardiance, Bumex 1 mg daily, torsemide 10 mg daily
HLD--Continue atorvastatin 20 mg at bedtime
GERD--Continue Nexium 40 mg at bedtime
BPH--Continue dutasteride, Flomax 0.4 mg daily
Gout--Continue allopurinol
Morbid obesity due to excess calorie consumption--Weight loss recommended, 1800 ADA low-fat diet
DVT prophylaxis--Hold current Eliquis
Code status --DNR was discussed with patient with son at bedside on admission
Anticipated Discharge: > 48 hours
Subjective/Interval History
-
Date of Service: July 12, 2023
pt right ankle much improved after IV decadron--left knee still with pain--immobilizer off, still with Aquacel in place
Objective Data
-
Labs:
Laboratory Results
07/12/23
08:42
WBC Pending
Hgb Pending
Hct Pending
Plt Count Pending
Sodium Pending
Potassium Pending
Chloride Pending
Carbon Dioxide Pending
BUN Pending
Creatinine Pending
Glucose Pending
Calcium Pending
Total Bilirubin Pending
AST Pending
ALT Pending
Alkaline Phosphatase Pending
Vital Signs:
max temp for 24 hours
07/10/23
15:51
Temp 98.8 F
Vital Signs
Temp Pulse Resp BP Pulse Ox
97.9 F 70 16 125/62 94
07/12/23 07:40 07/12/23 08:56 07/12/23 07:40 07/12/23 08:56 07/12/23 07:40
I&O
07/11/23 07/12/23 07/13/23
06:59 06:59 06:59
Intake Total 780 / 780 420 / 420
Output Total 1840 / 1840 1924 / 1924
Balance -1060 / -1060 -1505 / -1505
Review of Systems
-
All other systems: Reviewed and negative
Musculoskeletal: Reports Joint Pain (left knee pain)
Physical Exam
-
General: Well Developed, Well Nourished and No Apparent Distress
HEENT: Normocephalic and Atraumatic
Respiratory: Clear to Auscultation; Negative Wheezes or Rhonchi
Cardiac: Regular Rhythm and S1/S2; Negative Murmur
GI: Soft, Nontender, Nondistended and Normal Bowel Sounds
Musculoskeletal: No Clubbing, No Cyanosis and Other (right ankle with full range of motion, swelling improved, no pain to palpation---left knee with Aquacel, small bandaid from knee aspiration, still with swelling noted)
Neuro: Awake and Alert
Psych: Calm
[2023-07-12 09:25] LABS: % Basophils 0.1 % (0-2); % Immature Granulocytes 0.5 % (0-0.5); % Lymphocytes 7.9 % (20.5-51.1); % Monocytes 9.6 % (1.7-9.3); % Neutrophils 81.9 % (42.2-75.2); Absolute Immature Granulocytes 0.1 10^3/uL (0-0.05); Absolute Lymphocytes 0.7 10^3/uL (1.2-3.4); Absolute Monocytes 0.9 10^3/uL (0.1-0.6); Absolute Neutrophils 7.6 10^3/uL (1.4-6.5); Hematocrit 26.7 % (39.0-52.0); Hemoglobin 8.6 g/dL (13.0-18.0); Mean Corp Hgb Conc. 32.2 g/dL (33.0-37.0); Mean Corpuscular Hgb 26.5 pg (27.0-31.0); Mean Corpuscular Volume 82.2 fL (80.0-94.0); Mean Platelet Volume 8.5 fL (7.4-10.4); Nucleated Red Blood Cells % 0 % (-); Platelet Count 447 10^3/uL (130-400); Red Blood Cell Count 3.25 10^6/uL (4.70-6.10); Red Cell Dist. Width 15.6 % (11.5-14.5); White Blood Cell Count 9.3 10^3/uL (4.8-10.8)
[2023-07-12 09:39] LABS: ALT (SGPT) 20 U/L (0-50); AST (SGOT) 39 U/L (17-59); Albumin 3.5 g/dl (3.5-5.0); Alkaline Phosphatase 84 U/L (38-126); Blood Urea Nitrogen 40 mg/dl (9-20); Calcium 8.9 mg/dl (8.4-10.2); Carbon Dioxide 29 mmol/L (22-30); Chloride 88 mmol/L (98-107); Estimated Creatinine Clearance 79 ml/min; Glucose 100 mg/dl (70-99); Potassium 4.5 mmol/L (3.5-5.1); Sodium 126 mmol/L (135-145); Total Protein 7.7 g/dl (6.3-8.2); eGFR > 60.00
[2023-07-12 09:53] LABS: C-Reactive Protein > 270.00 mg/L (0.0-10.00)
--- NOTE | 2023-07-12 09:53 | W.PN.ID1 ---
Date of Service
Date of Service: July 12, 2023
Today's Communication
Continue cefazolin for today.
Assessment / Plan
Leukocytosis
Acute left knee pain; suspect hemarthrosis secondary to anticoagulation
- Currently assessing for joint infection (status post aspiration)
Right ankle pain; suspected gout
Elevated inflammatory markers
- Likely multifactorial
Paroxysmal A-fib (on Eliquis)
HTN
Asthma
CHF
COPD
Dyslipidemia
DM
REYNALDO
Pulmonary HTN
Recommendations:
Continue with empiric cefazolin for the present.
Await aspiration cultures; if negative, will discontinue further antibiotics.
Monitor white count and temperature curve.
Subjective / Review of Systems
Review of Systems: No Fever and No Chills
Vital Signs / Physical Exam
Vital Signs
Vital Signs
Temp Pulse Resp BP Pulse Ox
97.9 F 70 16 125/62 94
07/12/23 07:40 07/12/23 08:56 07/12/23 07:40 07/12/23 08:56 07/12/23 07:40
Physical Exam
Constitutional: No Acute Distress, Comfortable and Non-toxic
Cardiovascular: S1/S2; Negative S3/S4
Pulmonary: Non Labored
Musculoskeletal: Other (Left knee with swelling. Minimal erythema. Dressing in place.)
Objective Data
Lab Data
Lab Results
07/12/23 08:42
ESR 143 mm/hour (0-20) H 07/11/23 05:20
Estimated Creat Clear 79 ml/min 07/12/23 08:42
Total Bilirubin 1.0 mg/dl (0.2-1.3) 07/12/23 08:42
AST 39 U/L (17-59) 07/12/23 08:42
ALT 20 U/L (0-50) 07/12/23 08:42
Alkaline Phosphatase 84 U/L (38-126) 07/12/23 08:42
C-Reactive Protein 245.90 mg/L (0.0-10.00) H 07/11/23 05:20
Most recent labs reviewed.
Micro Results:
07/11/23 13:54 Wound Culture - Pending
Knee - Left Gram Stain - Preliminary
[2023-07-12] MEDS: ProAIR HFA INHALER 2 PUFF INH (10:09)
[2023-07-12 10:59] VITALS: PULSE 80; O2SAT 95
[2023-07-12 12:13] LABS: Glucose - Point of Care 98 mg/dl (70-99)
[2023-07-12] MEDS: MUCINEX 1200 MG PO ×2 (12:20→20:30)
--- NOTE | 2023-07-12 12:59 | W.PN.UPDATE ---
Update Note
Progress Note Update
Patient seen this a.m. Minimal progression of strikethrough on distal bandage. Reports pain is improving. Aspirate pending culture results.
-Will plan for dressing change in the morning. Continue knee in extension at this time with supportive compression bandage as needed. Pending further recommendations with culture results
[2023-07-12] MEDS: ZOFRAN 4 MG IV (13:25)
[2023-07-12] MEDS: ROXICODONE 10 MG PO ×2 (14:38→23:14)
[2023-07-12 15:25] VITALS: BP 127/66
--- NOTE | 2023-07-12 16:14 | CM ---
Bedside meeting with pt to review dc planning
SNF recommended and pt in agreement
PAC provided
He will review with his humberto and provide CM SNF choices
He will require [employer] auth
Discharge Disposition- SNF
[2023-07-12 17:04] LABS: Glucose - Point of Care 88 mg/dl (70-99)
[2023-07-12 21:30] LABS: Glucose - Point of Care 97 mg/dl (70-99)
[2023-07-12 22:59] VITALS: PULSE 87
[2023-07-12 23:00] VITALS: BP 138/68
[2023-07-12] MEDS: NEURONTIN 300 MG PO (23:15)
[2023-07-12] MEDS: SENOKOT 17.1999999999999993 MG PO (23:15)
[2023-07-12] MEDS: PROTONIX 40 MG PO (23:15)
[2023-07-12] MEDS: LIPITOR 20 MG PO (23:15)
[2023-07-13] MEDS: ANCEF 10 IV ×3 (02:04→17:09)
[2023-07-13 06:00] VITALS: BMI 32.8
[2023-07-13 07:19] LABS: Hematocrit 26.9 % (39.0-52.0); Hemoglobin 8.6 g/dL (13.0-18.0); Mean Corpuscular Hgb 26.6 pg (27.0-31.0); Mean Corpuscular Volume 83.3 fL (80.0-94.0); Mean Platelet Volume 8.6 fL (7.4-10.4); Platelet Count 462 10^3/uL (130-400); Red Blood Cell Count 3.23 10^6/uL (4.70-6.10); Red Cell Dist. Width 15.5 % (11.5-14.5); White Blood Cell Count 10.6 10^3/uL (4.8-10.8)
[2023-07-13 07:37] VITALS: BP 117/59
[2023-07-13 07:45] LABS: Glucose - Point of Care 79 mg/dl (70-99)
[2023-07-13 07:46] LABS: ALT (SGPT) 41 U/L (0-50); AST (SGOT) 96 U/L (17-59); Albumin 3.4 g/dl (3.5-5.0); Alkaline Phosphatase 88 U/L (38-126); Blood Urea Nitrogen 49 mg/dl (9-20); Calcium 8.7 mg/dl (8.4-10.2); Carbon Dioxide 30 mmol/L (22-30); Chloride 89 mmol/L (98-107); Creatine Phosphokinase 63 U/L (55-170); Estimated Creatinine Clearance 64 ml/min; Glucose 67 mg/dl (70-99); Magnesium 2.2 mg/dl (1.6-2.3); Potassium 4.5 mmol/L (3.5-5.1); Sodium 126 mmol/L (135-145); Total Bilirubin 0.6 mg/dl (0.2-1.3); Total Protein 7.5 g/dl (6.3-8.2); eGFR > 60.00
[2023-07-13] MEDS: NOVOLOG FLEXPEN-LOW RESISTANCE SC ×3 (07:49→17:08)
[2023-07-13] MEDS: ALDACTONE 12.5 MG PO (07:51)
[2023-07-13] MEDS: GLUCOPHAGE 1000 MG PO (07:51)
[2023-07-13] MEDS: TOPROL XL 25 MG PO (07:51)
[2023-07-13] MEDS: JARDIANCE 10 MG PO (07:52)
[2023-07-13] MEDS: MUCINEX 1200 MG PO ×2 (07:52→21:31)
[2023-07-13] MEDS: COLACE PO ×2 (07:52→21:26)
[2023-07-13] MEDS: AMARYL 2 MG PO (07:52)
[2023-07-13] MEDS: BUMEX 1 MG PO (07:52)
[2023-07-13] MEDS: FLOMAX 0.400000000000000022 MG PO (07:53)
[2023-07-13] MEDS: PROSCAR 5 MG PO (07:53)
[2023-07-13] MEDS: MIRALAX PO (07:53)
[2023-07-13] MEDS: DILAUDID 2 MG PO ×2 (10:02→21:30)
--- NOTE | 2023-07-13 10:11 | W.PN.ID1 ---
Date of Service
Date of Service: July 13, 2023
Today's Communication
Continue cefazolin for today.
Assessment / Plan
Leukocytosis
Acute left knee pain; suspect hemarthrosis secondary to anticoagulation
- Currently assessing for joint infection (status post aspiration)
Right ankle pain; suspected gout
Elevated inflammatory markers
- Likely multifactorial
Paroxysmal A-fib (on Eliquis)
HTN
Asthma
CHF
COPD
Dyslipidemia
DM
REYNALDO
Pulmonary HTN
Recommendations:
Continue with empiric cefazolin for the present.
Await aspiration cultures; if negative, will discontinue further antibiotics.
Monitor white count and temperature curve.
Subjective / Review of Systems
Review of Systems: No Fever and No Chills
Vital Signs / Physical Exam
Vital Signs
Vital Signs
Temp Pulse Resp BP Pulse Ox
98.2 F 67 14 117/59 97
07/13/23 07:37 07/13/23 07:37 07/13/23 07:37 07/13/23 07:37 07/13/23 07:37
Physical Exam
Constitutional: No Acute Distress, Comfortable and Non-toxic
Eyes: Sclera Anicteric
Cardiovascular: S1/S2; Negative S3/S4
Pulmonary: Non Labored
Musculoskeletal: Other (Left knee with mild swelling. Mild warmth. Mild tenderness.)
Neurological: Awake and Alert
Psychological: Calm
Objective Data
Lab Data
Lab Results
07/13/23 06:21
07/13/23 06:21
ESR 143 mm/hour (0-20) H 07/11/23 05:20
Estimated Creat Clear 64 ml/min 07/13/23 06:21
Total Bilirubin 0.6 mg/dl (0.2-1.3) 07/13/23 06:21
AST 96 U/L (17-59) H 07/13/23 06:21
ALT 41 U/L (0-50) 07/13/23 06:21
Alkaline Phosphatase 88 U/L (38-126) 07/13/23 06:21
C-Reactive Protein 221.30 mg/L (0.0-10.00) H 07/13/23 06:21
Most recent labs reviewed.
Micro Results:
07/11/23 13:54 Wound Culture - Preliminary
Knee - Left No growth
Gram Stain - Preliminary
Care Review
Plan reviewed with: Physician (Orthopedics)
[2023-07-13] MEDS: SENSORCAINE-MPF 0.25% VIAL 5 ML INJ (11:31)
[2023-07-13] MEDS: XYLOCAINE 1% 5 ML INJ (11:31)
[2023-07-13 11:39] LABS: Glucose - Point of Care 56 mg/dl (70-99)
[2023-07-13 11:41] LABS: Glucose - Point of Care 60 mg/dl (70-99)
--- NOTE | 2023-07-13 12:03 | W.PN.UPDATE ---
Update Note
Progress Note Update
Patient was seen and examined this morning. Reports increased pain about the left knee as well as the right ankle with presumed gout of the right ankle. Cultures are negative.
Dressing was removed showing incision was dry. Discussed with Dr. Chu. Given the patient's high risk factors for periprosthetic joint infection recommended for repeat aspirate to attempt to obtain cell count.
After patient consent, Limited nonvascular ultrasound was performed of the left knee showing a moderate to large effusion however with significant coagulated fluid likely hemarthrosis. A superior lateral approach was identified and the area cleaned
with alcohol x 6. The direct linear approach needle was placed intra-articular and verified on screen. Minimal aspirate was obtained despite positioning of needle and movement of fluid about the knee towards the needle. Approximately 3 cc of
bright red bloody fluid was obtained. A combination of 3 cc of lidocaine 1% without epinephrine and 7 cc of Marcaine 0.25% without epinephrine was attached to the syringe that was maintained and injected intra-articular with verification of needle
intra-articular. The needle was then removed with hemostasis obtained. A new dressing was applied and compressive wrap.
-Possible insufficient quantity of fluid for cell count will monitor.
-Cultures negative growth to date.
-New dressing was applied. Maintain in extension with assistance of knee immobilizer as needed. Assist devices as indicated. Pending possible cell count and PT recommendations patient may discharge potentially with outpatient follow-up within 1
week. Pending today's aspirate results with further recommendations
[2023-07-13 12:08] LABS: Glucose - Point of Care 72 mg/dl (70-99)
--- NOTE | 2023-07-13 12:46 | W.PN.HOSP.TC ---
Today's Communication/Plan
-
unclear what is endpoint for d/c
cont abx
Assessment / Plan
Assessment / Plan
pt is an 82 year old male
right ankle exquisite pain, warmth -- suspected gout despite uric acid level WNL--relief with IV decadron --ESR and CRP markedly elevated
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
ESR and CRP remain elevated--apprec ortho following--cont left knee immobilizer--holding eliquis--US neg for DVT--Continue oxycodone 5 mg moderate pain, 10 mg severe pain
hyponatremia--dropping since admission--fluid restrict--may need renal input
acute blood loss anemia Postop complicated by eliquis-- status post left knee replaced 06/24--hgb 8s
Constipation--pt says didn't move bowels then said had BM yesterday--cont bowel regimen--start suppository
Paroxysmal A-fib/History of ablation--Hold Eliquis--Continue metoprolol succinate 25 mg daily
DM2/diabetic neuropathy--Accu-Cheks with SSI--Continue metformin without milligrams twice daily, glimepiride 2 mg p.o. daily, Jardiance 10 mg daily-Continue gabapentin 300 mg at bedtime
Chronic CHF preserved EF--no exacerbation--I/O, daily weights--Continue Jardiance, Bumex 1 mg daily, torsemide 10 mg daily
HLD--Continue atorvastatin 20 mg at bedtime
GERD--Continue Nexium 40 mg at bedtime
BPH--Continue dutasteride, Flomax 0.4 mg daily
Gout--Continue allopurinol
Morbid obesity due to excess calorie consumption--Weight loss recommended, 1800 ADA low-fat diet
DVT prophylaxis--Hold current Eliquis
Code status --DNR was discussed with patient with son at bedside on admission
Anticipated Discharge: 24 - 48 hours
Subjective/Interval History
-
Date of Service: July 13, 2023
pt going to bring in his CPAP
Objective Data
-
Labs:
Laboratory Results
07/13/23
06:21
WBC 10.6
Hgb 8.6 L
Hct 26.9 L
Plt Count 462 H
Sodium 126 L
Potassium 4.5
Chloride 89 L
Carbon Dioxide 30
BUN 49 H
Creatinine 1.1
Glucose 67 L
Calcium 8.7
Total Bilirubin 0.6
AST 96 H
ALT 41
Alkaline Phosphatase 88
Vital Signs:
max temp for 24 hours
07/12/23
23:00
Temp 97.8 F
Vital Signs
Temp Pulse Resp BP Pulse Ox
98.2 F 67 14 117/59 97
07/13/23 07:37 07/13/23 07:37 07/13/23 07:37 07/13/23 07:37 07/13/23 07:37
I&O
07/12/23 07/13/23 07/14/23
06:59 06:59 06:59
Intake Total 420 / 420 775 / 775
Output Total 1924 / 1924 1650 / 1650
Balance -1505 / -1505 -875 / -875
Review of Systems
-
All other systems: Reviewed and negative
Musculoskeletal: Reports Other (knee pain)
Physical Exam
-
General: Well Developed, Well Nourished and No Apparent Distress
HEENT: Normocephalic and Atraumatic
Respiratory: Clear to Auscultation; Negative Wheezes or Rhonchi
Cardiac: Regular Rhythm and S1/S2; Negative Murmur
GI: Soft, Nontender, Nondistended and Normal Bowel Sounds
Musculoskeletal: No Clubbing, No Cyanosis and No Edema
Neuro: Awake
Psych: Calm
[2023-07-13 13:56] LABS: Glucose - Point of Care 45 mg/dl (70-99)
[2023-07-13 14:31] LABS: Glucose - Point of Care 60 mg/dl (70-99)
[2023-07-13] MEDS: DEXTROSE 50% SYRINGE 12.5 GRAMS IV (14:33)
[2023-07-13 15:08] LABS: Glucose - Point of Care 75 mg/dl (70-99)
[2023-07-13] MEDS: ROXICODONE 10 MG PO (15:13)
[2023-07-13 16:11] VITALS: PULSE 70; O2SAT 96
[2023-07-13 16:32] VITALS: BP 135/55
[2023-07-13 16:50] LABS: Glucose - Point of Care 66 mg/dl (70-99)
[2023-07-13] MEDS: GLUCOPHAGE PO (17:09)
[2023-07-13] MEDS: TYLENOL 650 MG PO (17:09)
[2023-07-13 18:30] LABS: Glucose - Point of Care 94 mg/dl (70-99)
[2023-07-13] MEDS: NEURONTIN 300 MG PO (21:29)
[2023-07-13] MEDS: LIPITOR 20 MG PO (21:29)
[2023-07-13] MEDS: PROTONIX 40 MG PO (21:31)
[2023-07-13 21:44] LABS: Glucose - Point of Care 93 mg/dl (70-99)
[2023-07-13] MEDS: SENOKOT PO (22:09)
[2023-07-13 23:35] VITALS: BP 124/61
[2023-07-14] MEDS: ANCEF 10 IV (02:04)
[2023-07-14 05:11] VITALS: BMI 32.8
[2023-07-14 06:35] LABS: Hematocrit 26.7 % (39.0-52.0); Hemoglobin 8.6 g/dL (13.0-18.0); Mean Corp Hgb Conc. 32.2 g/dL (33.0-37.0); Mean Corpuscular Hgb 26.8 pg (27.0-31.0); Mean Corpuscular Volume 83.2 fL (80.0-94.0); Mean Platelet Volume 8.6 fL (7.4-10.4); Platelet Count 414 10^3/uL (130-400); Red Blood Cell Count 3.21 10^6/uL (4.70-6.10); Red Cell Dist. Width 15.4 % (11.5-14.5); White Blood Cell Count 7.8 10^3/uL (4.8-10.8)
[2023-07-14 07:06] LABS: ALT (SGPT) 27 U/L (0-50); AST (SGOT) 58 U/L (17-59); Albumin 3.4 g/dl (3.5-5.0); Alkaline Phosphatase 90 U/L (38-126); Blood Urea Nitrogen 39 mg/dl (9-20); Calcium 8.9 mg/dl (8.4-10.2); Carbon Dioxide 30 mmol/L (22-30); Chloride 86 mmol/L (98-107); Estimated Creatinine Clearance 79 ml/min; Glucose 71 mg/dl (70-99); Magnesium 2.1 mg/dl (1.6-2.3); Potassium 4.9 mmol/L (3.5-5.1); Sodium 126 mmol/L (135-145); Total Bilirubin 0.7 mg/dl (0.2-1.3); Total Protein 7.6 g/dl (6.3-8.2); eGFR > 60.00
[2023-07-14 07:15] LABS: Glucose - Point of Care 142 mg/dl (70-99)
[2023-07-14 07:45] VITALS: BP 133/55
[2023-07-14] MEDS: NOVOLOG FLEXPEN-LOW RESISTANCE SC ×2 (08:38→16:49)
[2023-07-14] MEDS: COLACE 100 MG PO ×2 (08:39→22:15)
[2023-07-14] MEDS: MIRALAX 17 GRAMS PO (08:39)
[2023-07-14] MEDS: ALDACTONE 12.5 MG PO (08:39)
[2023-07-14] MEDS: BUMEX 1 MG PO (08:40)
[2023-07-14] MEDS: FLOMAX 0.400000000000000022 MG PO (08:41)
[2023-07-14] MEDS: MUCINEX 1200 MG PO ×2 (08:41→22:14)
[2023-07-14] MEDS: TOPROL XL 25 MG PO (08:43)
[2023-07-14] MEDS: PROSCAR 5 MG PO (08:44)
[2023-07-14] MEDS: DILAUDID 2 MG PO (09:03)
--- NOTE | 2023-07-14 09:48 | W.PN.ID1 ---
Date of Service
Date of Service: July 14, 2023
Today's Communication
D/C abx.
Assessment / Plan
Leukocytosis
Acute left knee pain; suspect hemarthrosis secondary to anticoagulation
- Joint aspiration without growth.
Right ankle pain; suspected gout
Elevated inflammatory markers
- Likely multifactorial
Paroxysmal A-fib (on Eliquis)
HTN
Asthma
CHF
COPD
Dyslipidemia
DM
REYNALDO
Pulmonary HTN
Recommendations:
Discontinue further antibiotics with close observation.
Subjective / Review of Systems
Patient seen and examined. Reports little knee discomfort at present.
Review of Systems: No Fever and No Chills
Vital Signs / Physical Exam
Vital Signs
Vital Signs
Temp Pulse Resp BP Pulse Ox
98.4 F 67 16 133/55 95
07/14/23 07:45 07/14/23 08:43 07/14/23 07:45 07/14/23 08:43 07/14/23 07:45
Physical Exam
Constitutional: No Acute Distress, Comfortable and Non-toxic
Eyes: Sclera Anicteric
Cardiovascular: S1/S2; Negative S3/S4
Pulmonary: Non Labored
Gastrointestinal: Soft
Extremities: Edema (1+ LLE) and Other (MAYRA wrap in place to LLE.); Negative Cyanosis or Erythema
Skin: Warm and Dry; Negative Rash or Jaundice
Neurological: Awake and Alert
Psychological: Calm
Objective Data
Lab Data
Lab Results
07/14/23 05:02
07/14/23 05:02
ESR 143 mm/hour (0-20) H 07/11/23 05:20
Estimated Creat Clear 79 ml/min 07/14/23 05:02
Total Bilirubin 0.7 mg/dl (0.2-1.3) 07/14/23 05:02
AST 58 U/L (17-59) 07/14/23 05:02
ALT 27 U/L (0-50) 07/14/23 05:02
Alkaline Phosphatase 90 U/L (38-126) 07/14/23 05:02
C-Reactive Protein 221.30 mg/L (0.0-10.00) H 07/13/23 06:21
Most recent labs reviewed.
Micro Results:
07/11/23 13:54 Wound Culture - Final
Knee - Left No growth
Gram Stain - Final
--- NOTE | 2023-07-14 10:21 | CM ---
Addendum entered by Haritha Thompson 07/14/23 15:26:
CM spoke with patient, [facility] does not accept insurance, [facility] does not have a male bed until Friday. Patient would like to revisit list provided of SNF and will provide additional facilities to CM.
Original Note:
CM met with patient bedside, patient requesting referrals sent to [facility] and [facility]. [facility] CM answered patient questions in regards to SNF. CM will continue to follow for discharge planning needs.
Plan; SNF pending accepting facility, will require auth.
[2023-07-14] MEDS: ProAIR HFA INHALER 2 PUFF INH (10:36)
[2023-07-14 11:40] LABS: Glucose - Point of Care 177 mg/dl (70-99)
[2023-07-14 11:59] VITALS: BP 126/57; BP 91/59; PULSE 85; PULSE 87; O2SAT 96
--- NOTE | 2023-07-14 12:25 | W.PN.UPDATE ---
Update Note
Progress Note Update
Late entry for AM rounds. Patient continues with discomfort in the left ankle, thought to be possible gout. Left knee is feeling better Afeb. Aspiration yesterday by my colleague, Candido, was sent to the lab. C&S was canceled but it was to be
processed for cell count. I dont see a cell count here in the system. I spoke to my colleague who reported just a few cc of blood (from US visualized hemarthrosis) and that it was probably too coagulated. Cultures have been negative to date.
Recommend knee immobilizer to maintain extension. Continue Tx per the primary team. May continue with PT, WBAT. Will follow along closely. Recommend an outpatient follow up in 1 week
[2023-07-14] MEDS: NOVOLOG FLEXPEN-LOW RESISTANCE 1 UNITS SC (13:10)
[2023-07-14 15:40] VITALS: BP 126/67
[2023-07-14] MEDS: ZOFRAN 4 MG IV (16:11)
--- NOTE | 2023-07-14 16:26 | W.PN.HOSP.TC ---
Today's Communication/Plan
-
Started colchicine.
Assessment / Plan
Assessment / Plan
pt is an 82 year old male
BL Left >right ankle pain -- suspected gout despite uric acid level WNL--relief with IV decadron which he is not on currently--ESR and CRP markedly elevated. Start on Colchicine.Hold Allopurinol.
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
ESR and CRP remain elevated--apprec ortho following--cont left knee immobilizer--holding eliquis--US neg for DVT--Continue oxycodone 5 mg moderate pain, 10 mg severe pain. Antibiotics DC'd by ID. Follow clinically. Follow response to colchicine.
hyponatremia--dropping since admission-moderately low -fluid restrict--check urine lytes
acute blood loss anemia Postop complicated by eliquis-- status post left knee replaced 06/24--hgb 8s stable
Constipation--pt says didn't move bowels then said had BM yesterday--cont bowel regimen--start suppository
Paroxysmal A-fib/History of ablation--Hold Eliquis--Continue metoprolol succinate 25 mg daily
DM2/diabetic neuropathy--Accu-Cheks with SSI--Continue metformin without milligrams twice daily, glimepiride 2 mg p.o. daily, Jardiance 10 mg daily-Continue gabapentin 300 mg at bedtime
Chronic CHF preserved EF--no exacerbation--I/O, daily weights--Continue Jardiance, Bumex 1 mg daily, torsemide 10 mg daily
HLD--Continue atorvastatin 20 mg at bedtime
GERD--Continue Nexium 40 mg at bedtime
BPH--Continue dutasteride, Flomax 0.4 mg daily
Gout--Continue allopurinol
Morbid obesity due to excess calorie consumption--Weight loss recommended, 1800 ADA low-fat diet
DVT prophylaxis--Hold current Eliquis
Code status --DNR
Anticipated Discharge: 24 - 48 hours
Subjective/Interval History
-
Date of Service: July 14, 2023
Continues to have bilateral ankle pain left more than right. Left ankle pain present for the last couple of days. She started to notice right ankle pain since yesterday. He had gout in the past which involves her ankles. He is on allopurinol for
gout prevention. Last attack in the remote past.
Left knee pain is ok.
Objective Data
-
Labs:
Laboratory Results
07/14/23
05:02
WBC 7.8
Hgb 8.6 L
Hct 26.7 L
Plt Count 414 H
Sodium 126 L
Potassium 4.9
Chloride 86 L
Carbon Dioxide 30
BUN 39 H
Creatinine 0.9
Glucose 71
Calcium 8.9
Total Bilirubin 0.7
AST 58
ALT 27
Alkaline Phosphatase 90
Vital Signs:
Vital Signs
Temp Pulse Resp BP Pulse Ox
98.1 F 75 18 126/67 95
07/14/23 15:40 07/14/23 15:40 07/14/23 15:40 07/14/23 15:40 07/14/23 15:40
I&O
07/13/23 07/14/23 07/15/23
06:59 06:59 06:59
Intake Total 775 / 775 1180 / 1180
Output Total 1650 / 1650 2054
Balance -875 / -875 -875 / -875
Review of Systems
-
Constitutional: Denies Fever
Respiratory: Denies Trouble Breathing
Cardiac: Denies Chest Pain
Abdomen/GI: Reports Nausea; Denies Abdominal Pain or Constipated
Physical Exam
-
General: Comfortable
HEENT: Moist Mucous Membranes
Respiratory: Clear to Auscultation
Cardiac: Regular Rhythm and S1/S2
GI: Soft
Musculoskeletal: No Edema and Other (PROM in L>R ankle)
Neuro: AO x 3
Psych: Calm; Negative Confused
[2023-07-14 16:43] LABS: Glucose - Point of Care 119 mg/dl (70-99)
[2023-07-14] MEDS: COLCHICINE 0.599999999999999978 MG PO (16:49)
[2023-07-14 18:07] LABS: Osmolality Urine 476 mOsm/kg (300-900)
[2023-07-14] MEDS: TYLENOL 650 MG PO (18:30)
[2023-07-14 20:08] LABS: Urine Sodium 38 mmol/L (30-90)
--- NOTE | 2023-07-14 21:00 | PTCARENOTE ---
Pt w/ timur's bag, tasty cakes, and frosty at bedside. Pt educated on diabetic diet.
[2023-07-14 21:16] LABS: Glucose - Point of Care 198 mg/dl (70-99)
[2023-07-14] MEDS: NEURONTIN 300 MG PO (22:14)
[2023-07-14] MEDS: PROTONIX 40 MG PO (22:14)
[2023-07-14] MEDS: SENOKOT 17.1999999999999993 MG PO (22:14)
[2023-07-14] MEDS: ROXICODONE 10 MG PO (22:15)
[2023-07-14] MEDS: LIPITOR 20 MG PO (22:15)
[2023-07-14 23:19] VITALS: BP 121/55
[2023-07-15 06:00] VITALS: BMI 32.2
[2023-07-15 06:46] LABS: Hematocrit 27.3 % (39.0-52.0); Hemoglobin 8.9 g/dL (13.0-18.0); Mean Corp Hgb Conc. 32.6 g/dL (33.0-37.0); Mean Corpuscular Hgb 26.7 pg (27.0-31.0); Mean Platelet Volume 8.8 fL (7.4-10.4); Platelet Count 416 10^3/uL (130-400); Red Blood Cell Count 3.33 10^6/uL (4.70-6.10); Red Cell Dist. Width 15.3 % (11.5-14.5)
[2023-07-15 07:16] LABS: Blood Urea Nitrogen 31 mg/dl (9-20); Calcium 8.7 mg/dl (8.4-10.2); Carbon Dioxide 27 mmol/L (22-30); Chloride 91 mmol/L (98-107); Estimated Creatinine Clearance 78 ml/min; Glucose 111 mg/dl (70-99); Iron 42 ug/dl (49-181); Potassium 4.9 mmol/L (3.5-5.1); Sodium 127 mmol/L (135-145); eGFR > 60.00
[2023-07-15 07:25] LABS: Percent Saturation 14 % (20-50); Total Iron Binding Capacity 292 ug/dl (261-462)
[2023-07-15 07:35] LABS: Glucose - Point of Care 218 mg/dl (70-99)
[2023-07-15 08:00] VITALS: BP 125/64
[2023-07-15] MEDS: MIRALAX 17 GRAMS PO (09:21)
[2023-07-15] MEDS: NOVOLOG FLEXPEN-LOW RESISTANCE 2 UNITS SC ×3 (09:21→17:14)
[2023-07-15] MEDS: ALDACTONE 12.5 MG PO (09:22)
[2023-07-15] MEDS: BUMEX 1 MG PO (09:23)
[2023-07-15] MEDS: PROSCAR 5 MG PO (09:23)
[2023-07-15] MEDS: FLOMAX 0.400000000000000022 MG PO (09:23)
[2023-07-15] MEDS: TOPROL XL 25 MG PO (09:23)
[2023-07-15] MEDS: COLACE 100 MG PO ×2 (09:23→20:50)
[2023-07-15] MEDS: MUCINEX 1200 MG PO ×2 (09:23→20:50)
[2023-07-15] MEDS: COLCHICINE 0.599999999999999978 MG PO ×2 (09:24→20:51)
[2023-07-15] MEDS: ROXICODONE 10 MG PO ×2 (09:32→20:50)
--- NOTE | 2023-07-15 10:15 | W.PN.UPDATE ---
Update Note
Progress Note Update
82M left TKA with secondary hemarthrosis.
Cultures have been negative to date.
Verified with lab today insufficient quantity of aspirate for lab testing from 2nd aspirate.
Recommend knee immobilizer to maintain extension.
Continue Tx per the primary team. May continue with PT, WBAT.
Will follow along closely. Recommend an outpatient follow up in 1 week
--- NOTE | 2023-07-15 10:29 | W.PN.HOSP.TC ---
Today's Communication/Plan
-
CW Colchicine
Resume Eliquis
Resume oral hypoglycemic agents
Resume Torsemide
Nephrology consult
Assessment / Plan
Assessment / Plan
pt is an 82 year old male
BL Left >right ankle pain -- suspected gout despite uric acid level WNL--relief with IV decadron which he is not on currently--ESR and CRP markedly elevated. Started on Colchicine with improvement.Hold Allopurinol- advised him to stay off of it as
the gout flares are far in between.
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
ESR and CRP remain elevated--apprec ortho following--cont left knee immobilizer--holding eliquis--US neg for DVT--Continue oxycodone 5 mg moderate pain, 10 mg severe pain. Antibiotics DC'd by ID. Follow clinically. Improving.
hyponatremia--dropping since admission-moderately low -on FR ;resume diuretics--check urine lytes noted. consult nephrology .Might need Samsca
acute blood loss anemia Postop complicated by eliquis-- status post left knee replaced 06/24--hgb 8s stable
Constipation-- -cont bowel regimen-
Paroxysmal A-fib/History of ablation-- -Continue metoprolol succinate 25 mg daily.Resume Eliquis.
DM2/diabetic neuropathy--Accu-Cheks with SSI--resume metformin twice daily, Jardiance 10 mg daily; hold on glimepiride 2 mg p.o. daily for today .Continue gabapentin 300 mg at bedtime
Chronic CHF preserved EF--no exacerbation--I/O, daily weights--Continue Jardiance, Bumex 1 mg daily, torsemide 10 mg daily
HLD--Continue atorvastatin 20 mg at bedtime
GERD--Continue Nexium 40 mg at bedtime
BPH--Continue dutasteride, Flomax 0.4 mg daily
Gout--Continue allopurinol
Morbid obesity due to excess calorie consumption--Weight loss recommended, 1800 ADA low-fat diet
DVT prophylaxis--Hold current Eliquis
Code status --DNR
Anticipated Discharge: Within 24 hours
Subjective/Interval History
-
Date of Service: July 15, 2023
Improved ankle pain with colchicine.
No fever or chills.
Denies any GI symptoms.
Objective Data
-
Labs:
Laboratory Results
07/15/23
04:44
WBC 10.0
Hgb 8.9 L
Hct 27.3 L
Plt Count 416 H
Sodium 127 L
Potassium 4.9
Chloride 91 L
Carbon Dioxide 27
BUN 31 H
Creatinine 0.9
Glucose 111 H
Calcium 8.7
Vital Signs:
Vital Signs
Temp Pulse Resp BP Pulse Ox
98.5 F 64 16 125/64 92
07/15/23 08:00 07/15/23 08:00 07/15/23 08:00 07/15/23 08:00 07/15/23 08:00
I&O
07/14/23 07/15/23 07/16/23
06:59 06:59 06:59
Intake Total 1180 / 1180 1440 / 1440
Output Total 2054 1265 / 1265
Balance -875 / -875 175 / 175
Review of Systems
-
Constitutional: Denies Fever
Respiratory: Denies Trouble Breathing
Cardiac: Denies Chest Pain
Neuro: Denies Dizzy or Headache
Physical Exam
-
General: No Apparent Distress
HEENT: Moist Mucous Membranes
Respiratory: Clear to Auscultation
Cardiac: Regular Rhythm and S1/S2
GI: Soft and Nontender
Musculoskeletal: Other (improved range of motions in ankle today)
Neuro: AO x 3
Psych: Calm
Data Reviewed
-
Labs: Labs Reviewed by me
--- NOTE | 2023-07-15 11:33 | W.PN.ID1 ---
Date of Service
Date of Service: July 15, 2023
Today's Communication
Sign off.
Assessment / Plan
Leukocytosis
Acute left knee pain; suspect hemarthrosis secondary to anticoagulation
- Joint aspiration without growth.
Right ankle pain; suspected gout
Elevated inflammatory markers
- Likely multifactorial
Paroxysmal A-fib (on Eliquis)
HTN
Asthma
CHF
COPD
Dyslipidemia
DM
REYNALDO
Pulmonary HTN
Recommendations:
Patient doing well off of antibiotics at present.
No indication of active infection.
Little more to offer from a Infectious Diseases standpoint.
Will see again at your request.
Chief Complaint
-: Other (Left knee pain.)
Subjective / Review of Systems
Review of Systems: No Fever and No Chills
Vital Signs / Physical Exam
Vital Signs
Vital Signs
Temp Pulse Resp BP Pulse Ox
98.5 F 64 16 125/64 92
07/15/23 08:00 07/15/23 08:00 07/15/23 08:00 07/15/23 08:00 07/15/23 08:00
Physical Exam
Constitutional: No Acute Distress and Non-toxic
Eyes: Sclera Anicteric
Cardiovascular: S1/S2; Negative S3/S4
Pulmonary: Non Labored
Extremities: Edema; Negative Erythema
Musculoskeletal: Other (Little left knee discomfort with palpation.)
Skin: Warm and Dry; Negative Rash or Jaundice
Neurological: Awake and Alert
Psychological: Calm
Objective Data
Lab Data
Lab Results
07/15/23 04:44
07/15/23 04:44
ESR 143 mm/hour (0-20) H 07/11/23 05:20
Estimated Creat Clear 78 ml/min 07/15/23 04:44
Total Bilirubin 0.7 mg/dl (0.2-1.3) 07/14/23 05:02
AST 58 U/L (17-59) 07/14/23 05:02
ALT 27 U/L (0-50) 07/14/23 05:02
Alkaline Phosphatase 90 U/L (38-126) 07/14/23 05:02
C-Reactive Protein 221.30 mg/L (0.0-10.00) H 07/13/23 06:21
Most recent labs reviewed.
Micro Results:
07/11/23 13:54 Wound Culture - Final
Knee - Left No growth
Gram Stain - Final
[2023-07-15 11:43] LABS: Glucose - Point of Care 223 mg/dl (70-99)
[2023-07-15 12:21] VITALS: BP 136/77; BP 147/70; PULSE 82; O2SAT 96
[2023-07-15 12:26] VITALS: BP 136/77; BP 147/70; PULSE 83; O2SAT 95
[2023-07-15] MEDS: ELIQUIS 5 MG PO ×2 (12:47→20:50)
--- NOTE | 2023-07-15 13:37 | CM ---
Reviewed the chart notes and spoke with the patient at the beside. Reviewed that [facility] does not participate with the patient's insurance and [facility] will not have any beds this week. Additional referrals sent. CM continues to be
available to patient/family and is monitoring medical plan for needs at discharge.
Plan: SNF once bed found. Precert will be required.
[2023-07-15 14:39] VITALS: BP 114/56
[2023-07-15 16:21] LABS: Glucose - Point of Care 206 mg/dl (70-99)
--- NOTE | 2023-07-15 16:50 | W.CON.NEPH ---
Consultation
-
Date/Time Consultation Requested: 07/15/23 1017
Date/Time Consultation Performed: 07/15/23 1645
Requesting Provider: Kyle Ireland
Performing Provider: Kaycee Rosenberg
Reason for Consultation: hyponatremia
Medical History
-
Chief Complaint: left knee pain
History of Present Illness:
82-year-old male with PMH of DCHF On bumex, torsemide, DMtype 2 on Glimepiride, metformin, and Jardiance, P afib on AC with Eliquis and BB, HTN also on Aldactone who had left knee arthroplasty 06/25/2023 who states he had increased pain and constant
oozing of blood on the left lateral aspect of his knee hence presented to ER on 07/07. Found to have hemarthrosis, and later developed left ankle pain which felt to be from Gout flare currently on colchicine, no suspicion of infection hence off abx
and evaluated by ID. Since admit his sodium slowly decreasing from 131 to 126 for last few days and now 127 despite FR and diuretics hence nephrology consulted. He denies fever, chills, chest pain, shortness breath, abdominal pain, vomit,
diarrhea. has constipation, mild nausea, able to pass flatus.
Past Medical History
paroxysmal A-fib
HTN
COPD
CHF preserved EF
HLD,
morbid obesity
DM2
gout
BPH
Past Surgical History: Other (Trigger finger release status post left knee arthroplasty 06/25/2023 Hemorrhoidectomy A-fib ablation)
Social History
Tobacco: Non-Smoker
Alcohol: None
Personal:
Living: With Family
Employment: Retired
Family History
MOther-Alzheimer, Brother with DM, sister-renal failure-, other sister with CHF,
other sister dies with CT
Allergies / Home Medications
Allergy/AdvReac Type Severity Reaction Status Date / Time
iodine Allergy Swelling Verified 07/08/23 18:35
shellfish derived Allergy SWELLING Verified 07/08/23 18:35
AND HIVES
�Medication �Instructions �Recorded �Confirmed �Type
atorvastatin 10 mg tablet 20 mg PO HS High cholesterol 04/06/13 07/08/23 History
fluticasone propionate 50 2 spry intranasal BID Allergies 04/06/13 07/08/23 History
mcg/actuation nasal
spray,suspension
esomeprazole magnesium 40 mg 40 mg PO HS Gastrointestinal issue 02/07/19 07/08/23 History
capsule,delayed release (Nexium)
metformin 1,000 mg tablet 1,000 mg PO BID Diabetes 02/07/19 07/08/23 History
albuterol sulfate 90 mcg/actuation 2 puff inhalation R Q4HPRN PRN sob 03/16/20 07/08/23 History
aerosol inhaler
allopurinol 300 mg tablet 300 mg PO HS PRN gout 03/16/20 07/08/23 History
metoprolol succinate 25 mg 25 mg PO DAILY #30 tabs 08/17/21 07/08/23 Rx
tablet,extended release 24 hr
tamsulosin 0.4 mg capsule 0.4 mg PO DAILY #30 caps 08/17/21 07/08/23 Rx
torsemide 10 mg tablet 10 mg PO DAILY Fluid 06/10/23 07/08/23 History
Retention/Swelling
gabapentin 300 mg capsule 300 mg PO HS sleep/pain #10 caps 06/26/23 07/08/23 Rx
apixaban 5 mg tablet (Eliquis) 5 mg PO BID dvt prophylaxis/afibb 07/08/23 07/08/23 History
bumetanide 1 mg tablet 1 mg PO DAILY Fluid 07/08/23 07/08/23 History
Retention/Swelling
dutasteride 0.5 mg capsule 0.5 mg PO DAILY Urinary Issue 07/08/23 07/08/23 History
empagliflozin 10 mg tablet 10 mg PO DAILY Diabetes 07/08/23 07/08/23 History
(Jardiance)
glimepiride 2 mg tablet 2 mg PO DAILY Diabetes 07/08/23 07/08/23 History
oxycodone 5 mg tablet 5 mg PO Q6H PRN moderate pain 07/08/23 07/08/23 History
oxycodone 5 mg tablet 10 mg PO Q6H PRN severe pain 07/08/23 07/08/23 History
spironolactone 25 mg tablet 12.5 mg PO DAILY Blood Pressure 07/08/23 07/08/23 History
Review of Systems
-
All complete 12point ROS have been inquired and found negative other than stated in HPI
Physical Exam
Vital Signs
Vital Signs
Temp Pulse Resp BP Pulse Ox
98.3 F 71 16 114/56 96
07/15/23 14:39 07/15/23 14:39 07/15/23 14:39 07/15/23 14:39 07/15/23 14:39
Lab Results
WBC 10.0 10^3/uL (4.8-10.8) 07/15/23 04:44
RBC 3.33 10^6/uL (4.70-6.10) L 07/15/23 04:44
Hgb 8.9 g/dL (13.0-18.0) L 07/15/23 04:44
Hct 27.3 % (39.0-52.0) L 07/15/23 04:44
Plt Count 416 10^3/uL (130-400) H 07/15/23 04:44
Sodium 127 mmol/L (135-145) L 07/15/23 04:44
Potassium 4.9 mmol/L (3.5-5.1) 07/15/23 04:44
Chloride 91 mmol/L (98-107) L 07/15/23 04:44
Carbon Dioxide 27 mmol/L (22-30) 07/15/23 04:44
BUN 31 mg/dl (9-20) H 07/15/23 04:44
Creatinine 0.9 mg/dL (0.7-1.3) 07/15/23 04:44
eGFR > 60.00 07/15/23 04:44
Glucose 111 mg/dl (70-99) H 07/15/23 04:44
Calcium 8.7 mg/dl (8.4-10.2) 07/15/23 04:44
Albumin 3.4 g/dl (3.5-5.0) L 07/14/23 05:02
Physical Exam
General: Awake, Alert, Oriented, AOx3, No Distress and Nontoxic
HEENT: EOMI and Anicteric
Respiratory: Clear, Normal Excursion and Nonlabored Respirations
Cardiac: S1/S2 and Regular Rate/Rhythm
Abdomen: Soft, Nontender and Nondistended
Musculoskeletal: Edema (trace , left knee in MAYRA wrap)
Skin: No Rash
Neuro: Nonfocal/Grossly Intact
Psych: Mood/afflect pleasant, Insight/judgement good and Appropriate
Assessment/Plan
-
IMP:
BL Left >right ankle pain -- suspected gout
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
hyponatremia
acute blood loss anemia Postop complicated by eliquis
Constipation
Paroxysmal A-fib/History of ablation
DM2/diabetic neuropathy
Chronic CHF preserved EF
HLD
GERD
BPH
Gout
Morbid obesity due to excess calorie consumption
PLan:
A/w on 07/07with left knee pain post arthroplasty 06/24
hyponatremia-u osmo high at 476, U na 38
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
will dose samsca, cont FR 40 ounces/day
on bumex and Torsemide-both loop diuretics and do not see benefit with combined use
recent cards visit Torsemide change to Bumex per [facility]
will have to use one loop diuretic -bumex
BP stable
pain control
d/w pt
Data Reviewed
-
Labs: Labs Reviewed by me and Discussed with Patient
[2023-07-15] MEDS: GLUCOPHAGE 1000 MG PO (17:13)
[2023-07-15] MEDS: SAMSCA 30 MG PO (18:14)
[2023-07-15] MEDS: PROTONIX 40 MG PO (20:50)
[2023-07-15] MEDS: NEURONTIN 300 MG PO (20:50)
[2023-07-15] MEDS: LIPITOR 20 MG PO (20:50)
[2023-07-15] MEDS: SENOKOT 17.1999999999999993 MG PO (20:51)
[2023-07-15 21:01] LABS: Glucose - Point of Care 154 mg/dl (70-99)
[2023-07-15 23:35] VITALS: BP 129/57
[2023-07-16 03:00] VITALS: BP 135/67
[2023-07-16 03:13] LABS: Glucose - Point of Care 134 mg/dl (70-99)
--- NOTE | 2023-07-16 03:21 | PTCARENOTE ---
Addendum entered by Myriam Heath RN 07/16/23 03:29:
Bed alarm on the bed for safety.
Original Note:
This nurse heard patient getting OOB with cpap on face/ standing by the bed without using the call wyman and urinated on to the floor. Patient couldn't remember why he got up, Patient AAOx3 but unable to recall. Helped patient back to bed. Reoriented
and patient verbalized understanding. stable vitals. Blood sugar- 134. oxygen sat-88-92. Applied oxygen @2 while sleeping. POC reviewed with patient.
[2023-07-16] MEDS: TYLENOL 650 MG PO (03:32)
[2023-07-16] MEDS: MILK OF MAGNESIA 30 ML PO ×2 (03:37→12:57)
[2023-07-16 05:21] VITALS: BMI 32.4
[2023-07-16 06:11] LABS: Blood Urea Nitrogen 34 mg/dl (9-20); Carbon Dioxide 29 mmol/L (22-30); Chloride 90 mmol/L (98-107); Estimated Creatinine Clearance 64 ml/min; Glucose 125 mg/dl (70-99); Sodium 129 mmol/L (135-145); eGFR > 60.00
[2023-07-16 06:16] LABS: Potassium 4.8 mmol/L (3.5-5.1)
[2023-07-16 07:26] LABS: Glucose - Point of Care 138 mg/dl (70-99)
[2023-07-16 07:35] VITALS: BP 125/66
--- NOTE | 2023-07-16 08:05 | W.PN.UPDATE ---
Update Note
Progress Note Update
Mr. Hyde is resting comfortably in bed this morning. He denies any significant pain in the knee at present. He has no questions or concerns at this time.
Aquacel dressing in place to left knee clean, dry and intact. Mild tenderness to palpation about the anterior knee. Calf soft and nontender. Neurovascularly intact distally.
82M left TKA with secondary hemarthrosis.
Final cultures negative.
Recommend knee immobilizer to maintain extension.
Continue Tx per the primary team. May continue with PT, WBAT.
Will follow along closely. Recommend an outpatient follow up in 1 week.
[2023-07-16] MEDS: NOVOLOG FLEXPEN-LOW RESISTANCE SC ×2 (08:32→16:37)
[2023-07-16] MEDS: ALDACTONE 12.5 MG PO (08:32)
[2023-07-16] MEDS: BUMEX 1 MG PO (08:32)
[2023-07-16] MEDS: FLOMAX 0.400000000000000022 MG PO (08:33)
[2023-07-16] MEDS: COLCHICINE 0.599999999999999978 MG PO ×2 (08:33→20:14)
[2023-07-16] MEDS: TOPROL XL 25 MG PO (08:33)
[2023-07-16] MEDS: MUCINEX 1200 MG PO ×2 (08:34→20:14)
[2023-07-16] MEDS: COLACE 100 MG PO ×2 (08:34→20:14)
[2023-07-16] MEDS: PROSCAR 5 MG PO (08:34)
[2023-07-16] MEDS: MIRALAX 17 GRAMS PO (08:34)
[2023-07-16] MEDS: GLUCOPHAGE 1000 MG PO (08:34)
[2023-07-16] MEDS: ELIQUIS 5 MG PO (08:34)
[2023-07-16] MEDS: JARDIANCE 10 MG PO (08:34)
[2023-07-16 09:15] VITALS: BP 121/60; PULSE 71; O2SAT 98
[2023-07-16 11:15] LABS: Glucose - Point of Care 169 mg/dl (70-99)
--- NOTE | 2023-07-16 11:19 | W.PN.UPDATE ---
Update Note
Progress Note Update
Pt seen and examined. Some small area of purulent material at incision without active drainage. I am highly concerned he has a prosthetic joint infection the presentation of which is delayed by administration of empiric abx on arrival. Pt
culture of the knee neg but it's well known that cultures can be falsly neg due to abx. I would rec to not d/c patient tomorrow, hold jardiance, hold elequis and I will reorder inflam labs. If drainage increases tonight and tomorrow off abx then
it will be convincing to me infxn in present and patient will need repeat surgery. This could consist of I&D or revision. Will be a difficult situation due to at present not having identified a specific bacteria.
[2023-07-16 11:57] LABS: Erythrocyte Sed Rate 131 mm/hour (0-20)
[2023-07-16] MEDS: ProAIR HFA INHALER 2 PUFF INH ×2 (12:12→20:25)
--- NOTE | 2023-07-16 12:18 | W.PN.HOSP.TC ---
Today's Communication/Plan
-
Hold on discharge. Depending on purulence from the left knee incision wound for OR on Friday. Hold Jardiance and Eliquis.
Assessment / Plan
Assessment / Plan
pt is an 82 year old male
BL Left >right ankle pain -- suspected gout despite uric acid level WNL--relief with IV decadron which he is not on currently--ESR and CRP markedly elevated. Started on Colchicine -continued improvement.Hold Allopurinol- advised him to stay off of
it as the gout flares are far in between.
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
ESR and CRP remain elevated--apprec ortho following--cont left knee immobilizer--holding eliquis--US neg for DVT--Continue oxycodone 5 mg moderate pain, 10 mg severe pain. Antibiotics DC'd by ID. Follow clinically. Left knee incision with some
purulence now - Ortho want to hold on DC and if continued drainage will need to go back to OR. Hold Eliquis and Jardiance for now.
hyponatremia--dropping since admission-moderately low -on FR ;resume diuretics-- urine lytes noted. appt nephrology input. s/p one dose of Samsca 07/14- improved Na to 129.
acute blood loss anemia Postop complicated by eliquis-- status post left knee replaced 06/24--hgb 8s stable
Constipation-- -cont bowel regimen- add rectal suppository
Paroxysmal A-fib/History of ablation-- -Continue metoprolol succinate 25 mg daily.Hold Eliquis.
DM2/diabetic neuropathy--Accu-Cheks with SSI--Hold metformin twice daily, hold Jardiance 10 mg daily; cw glimepiride 2 mg p.o. daily .Continue gabapentin 300 mg at bedtime
Chronic CHF preserved EF--no exacerbation--I/O, daily weights--hold Jardiance,cw Bumex 1 mg daily
HLD--Continue atorvastatin 20 mg at bedtime
GERD--Continue Nexium 40 mg at bedtime
BPH--Continue dutasteride, Flomax 0.4 mg daily
Gout--Continue allopurinol
Morbid obesity due to excess calorie consumption--Weight loss recommended, 1800 ADA low-fat diet
DVT prophylaxis--Hold current Eliquis
Code status --DNR
Anticipated Discharge: > 48 hours
Subjective/Interval History
-
Date of Service: July 16, 2023
Ankle pain is essentially gone. Some residual pain in the left ankle. Left knee pain is okay.
Objective Data
-
Labs:
Laboratory Results
07/16/23
05:06
Sodium 129 L
Potassium 4.8
Chloride 90 L
Carbon Dioxide 29
BUN 34 H
Creatinine 1.1
Glucose 125 H
Calcium 9.0
Vital Signs:
Vital Signs
Temp Pulse Resp BP Pulse Ox
98.3 F 77 16 125/69 96
07/16/23 07:35 07/16/23 07:35 07/16/23 07:35 07/16/23 08:33 07/16/23 07:35
I&O
07/15/23 07/16/23 07/17/23
06:59 06:59 06:59
Intake Total 1440 / 1440 960 / 960
Output Total 1265 / 1265 2300 / 2300
Balance 175 / 175 -1340 / -1340
Review of Systems
-
Constitutional: Denies Fever
Respiratory: Denies Trouble Breathing
Cardiac: Denies Chest Pain
Abdomen/GI: Denies Abdominal Pain, Nausea or Vomiting
Neuro: Denies Dizzy
Physical Exam
-
General: No Apparent Distress
HEENT: Moist Mucous Membranes
Respiratory: Clear to Auscultation
Cardiac: Regular Rhythm and S1/S2
GI: Soft
Neuro: AO x 3
Psych: Calm
Data Reviewed
-
Labs: Labs Reviewed by me
--- NOTE | 2023-07-16 12:18 | W.PN.NEPH.PH ---
Today's Communication / Plan
-
Maintain fluid restriction
Follow electrolyte
Assessment/Plan
-
IMP:
BL Left >right ankle pain -- suspected gout
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
hyponatremia
acute blood loss anemia Postop complicated by eliquis
Constipation
Paroxysmal A-fib/History of ablation
DM2/diabetic neuropathy
Chronic CHF preserved EF
HLD
GERD
BPH
Gout
Morbid obesity due to excess calorie consumption
PLan:
A/w on 07/07with left knee pain post arthroplasty 06/24
hyponatremia-u osmo high at 476, U na 38
Hyponatremia improved to 129 following Samsca administration yesterday
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
Continue FR 40 ounces/day
will have to use one loop diuretic -bumex
BP stable
pain control
-
-
Date of Service: July 16, 2023
CC / HPI / ROS
-
Chief Complaint:
Hyponatremia
History of Present Illness:
Serum sodium improved to 129 following Samsca administration on 07/15/23
Hemodynamically stable
Review of Systems:
non oliguric
no fevers
knee pain
Labs
-
Labs:
WBC 10.0 10^3/uL (4.8-10.8) 07/15/23 04:44
RBC 3.33 10^6/uL (4.70-6.10) L 07/15/23 04:44
Hgb 8.9 g/dL (13.0-18.0) L 07/15/23 04:44
Hct 27.3 % (39.0-52.0) L 07/15/23 04:44
Plt Count 416 10^3/uL (130-400) H 07/15/23 04:44
Sodium 129 mmol/L (135-145) L 07/16/23 05:06
Potassium 4.8 mmol/L (3.5-5.1) 07/16/23 05:06
Chloride 90 mmol/L (98-107) L 07/16/23 05:06
Carbon Dioxide 29 mmol/L (22-30) 07/16/23 05:06
BUN 34 mg/dl (9-20) H 07/16/23 05:06
Creatinine 1.1 mg/dL (0.7-1.3) 07/16/23 05:06
eGFR > 60.00 07/16/23 05:06
Glucose 125 mg/dl (70-99) H 07/16/23 05:06
Calcium 9.0 mg/dl (8.4-10.2) 07/16/23 05:06
Albumin 3.4 g/dl (3.5-5.0) L 07/14/23 05:02
Physical Exam
-
Vital Signs:
Vital Signs
Temp Pulse Resp BP Pulse Ox
98.3 F 77 16 125/69 96
07/16/23 07:35 07/16/23 07:35 07/16/23 07:35 07/16/23 08:33 07/16/23 07:35
Respiratory:: Bilateral: CTA
Lung Excursion:: Normal
Abdomen:: Nontender and Soft
Bowel Sounds:: Normal
Extremity Edema:: None: Bilateral:
Bruce Catheter: No
[2023-07-16] MEDS: NOVOLOG FLEXPEN-LOW RESISTANCE 1 UNITS SC (12:25)
[2023-07-16] MEDS: DULCOLAX 10 MG RECTAL (12:57)
--- NOTE | 2023-07-16 14:43 | CM ---
Reviewed the chart notes [facility] Received call from [facility] Admissions Liaison [facility]. Per Drew, patient's spouse said patient's d/c on hold. To OR on Friday. Will need to revisit placement availability on Friday. CM
continues to be available to patient/family and is monitoring medical plan for needs at discharge.
Plan: Discharge plan on hold. SNF/rehab once medically stable.
[2023-07-16 15:40] VITALS: BP 104/57
[2023-07-16 16:33] LABS: Glucose - Point of Care 132 mg/dl (70-99)
[2023-07-16] MEDS: DILAUDID 2 MG PO (20:18)
[2023-07-16 21:36] LABS: Glucose - Point of Care 138 mg/dl (70-99)
[2023-07-16] MEDS: SENOKOT 17.1999999999999993 MG PO (22:04)
[2023-07-16] MEDS: LIPITOR 20 MG PO (22:04)
[2023-07-16] MEDS: PROTONIX 40 MG PO (22:04)
[2023-07-16] MEDS: NEURONTIN 300 MG PO (22:04)
[2023-07-16 23:03] VITALS: BP 116/58
[2023-07-17 06:00] VITALS: BMI 32.6
[2023-07-17 06:37] LABS: Hematocrit 27.4 % (39.0-52.0); Hemoglobin 8.8 g/dL (13.0-18.0); Mean Corp Hgb Conc. 32.1 g/dL (33.0-37.0); Mean Corpuscular Hgb 26.8 pg (27.0-31.0); Mean Corpuscular Volume 83.5 fL (80.0-94.0); Mean Platelet Volume 8.7 fL (7.4-10.4); Platelet Count 386 10^3/uL (130-400); Red Blood Cell Count 3.28 10^6/uL (4.70-6.10); Red Cell Dist. Width 15.7 % (11.5-14.5); White Blood Cell Count 11.1 10^3/uL (4.8-10.8)
[2023-07-17 06:57] LABS: Erythrocyte Sed Rate 144 mm/hour (0-20)
[2023-07-17 07:09] VITALS: BP 141/59
[2023-07-17 07:11] LABS: Blood Urea Nitrogen 32 mg/dl (9-20); Calcium 8.8 mg/dl (8.4-10.2); Carbon Dioxide 29 mmol/L (22-30); Chloride 92 mmol/L (98-107); Estimated Creatinine Clearance 71 ml/min; Glucose 108 mg/dl (70-99); Potassium 4.9 mmol/L (3.5-5.1); Sodium 130 mmol/L (135-145); eGFR > 60.00
[2023-07-17 07:32] LABS: Glucose - Point of Care 160 mg/dl (70-99)
--- NOTE | 2023-07-17 08:07 | W.PN.UPDATE ---
Update Note
Progress Note Update
Patient seen this morning with Dr. Chu. His left knee seems to be feeling somewhat better this morning. Dressing has 1 small dot of blood. No warmth or erythema noted. Passive motion 0 to 50 degrees with minimal pain. Calf is soft and
nontender. Distal neurovascular was intact. We will observe for now and see how he is doing until tomorrow morning. N.p.o. after midnight for OR potentially tomorrow depending on how he is doing in the morning. CRP and sed rate tomorrow morning.
[2023-07-17] MEDS: NOVOLOG FLEXPEN-LOW RESISTANCE 1 UNITS SC ×2 (08:31→17:18)
[2023-07-17] MEDS: MIRALAX 17 GRAMS PO (08:36)
[2023-07-17] MEDS: COLACE 100 MG PO ×2 (08:36→19:31)
[2023-07-17] MEDS: COLCHICINE 0.599999999999999978 MG PO ×2 (08:36→19:32)
[2023-07-17] MEDS: FLOMAX 0.400000000000000022 MG PO (08:37)
[2023-07-17] MEDS: MUCINEX 1200 MG PO ×2 (08:37→19:31)
[2023-07-17] MEDS: TOPROL XL 25 MG PO (08:38)
[2023-07-17] MEDS: ALDACTONE 12.5 MG PO (08:38)
[2023-07-17] MEDS: BUMEX 1 MG PO (08:43)
[2023-07-17] MEDS: PROSCAR 5 MG PO (08:44)
[2023-07-17] MEDS: TYLENOL 650 MG PO (08:53)
[2023-07-17 09:41] VITALS: BP 114/59; PULSE 75; O2SAT 97
--- NOTE | 2023-07-17 10:10 | W.PN.HOSP.TC ---
Today's Communication/Plan
-
Add enema.
Continue with current bowel regimen.
Continue with colchicine.
Continue to hold antibiotics. Plan for possible OR tomorrow noted.
Assessment / Plan
Assessment / Plan
pt is an 82 year old male
BL Left >right ankle pain -- suspected gout despite uric acid level WNL--relief with IV decadron which he is not on currently--ESR and CRP markedly elevated. Started on Colchicine -continued improvement.Hold Allopurinol- advised him to stay off of
it as the gout flares are far in between.
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
ESR and CRP remain elevated--apprec ortho following--cont left knee immobilizer--holding eliquis--US neg for DVT--Continue oxycodone 5 mg moderate pain, 10 mg severe pain. Antibiotics DC'd by ID. Follow clinically. Left knee incision with some
purulence now - Ortho want to hold on DC and if continued drainage will need to go back to OR. Hold Eliquis and Jardiance for now.
hyponatremia--dropping since admission-moderately low -on FR ;resume diuretics-- urine lytes noted. appt nephrology input. s/p one dose of Samsca 07/14- improved Na to 130
acute blood loss anemia Postop complicated by eliquis-- status post left knee replaced 06/24--hgb 8s stable
Constipation-- -cont bowel regimen- add enema today
Paroxysmal A-fib/History of ablation-- -Continue metoprolol succinate 25 mg daily.Hold Eliquis.
DM2/diabetic neuropathy--Accu-Cheks with SSI--Hold metformin twice daily, hold Jardiance 10 mg daily; cw glimepiride 2 mg p.o. daily .Continue gabapentin 300 mg at bedtime
Chronic CHF preserved EF--no exacerbation--I/O, daily weights--hold Jardiance,cw Bumex 1 mg daily
HLD--Continue atorvastatin 20 mg at bedtime
GERD--Continue Nexium 40 mg at bedtime
BPH--Continue dutasteride, Flomax 0.4 mg daily
Gout--Continue allopurinol
Morbid obesity due to excess calorie consumption--Weight loss recommended, 1800 ADA low-fat diet
DVT prophylaxis--Hold current Eliquis
Code status --DNR
Anticipated Discharge: > 48 hours
Subjective/Interval History
-
Date of Service: July 17, 2023
Constipated.
No nausea vomiting. No abdominal pain.
Bilateral ankle pains improved still has pain in the left ankle. Left knee pain is okay.
No fever or chills.
Objective Data
-
Labs:
Laboratory Results
07/17/23
05:31
WBC 11.1 H
Hgb 8.8 L
Hct 27.4 L
Plt Count 386
Sodium 130 L
Potassium 4.9
Chloride 92 L
Carbon Dioxide 29
BUN 32 H
Creatinine 1.0
Glucose 108 H
Calcium 8.8
Vital Signs:
Vital Signs
Temp Pulse Resp BP Pulse Ox
98 F 69 19 141/59 96
07/17/23 07:09 07/17/23 07:09 07/17/23 07:09 07/17/23 07:09 07/17/23 07:09
I&O
07/16/23 07/17/23 07/18/23
06:59 06:59 06:59
Intake Total 960 / 960 390 / 390
Output Total 2300 / 2300 1820 / 1820
Balance -1340 / -1340 -1430 / -1430
Review of Systems
-
Constitutional: Denies Fever or Chills
Respiratory: Denies Trouble Breathing
Cardiac: Denies Chest Pain
Neuro: Denies Dizzy
Physical Exam
-
General: No Apparent Distress
HEENT: Moist Mucous Membranes
Respiratory: Clear to Auscultation
Cardiac: Regular Rhythm and S1/S2
GI: Soft and Nontender
Neuro: AO x 3
Psych: Calm
Data Reviewed
-
Labs: Labs Reviewed by me
--- NOTE | 2023-07-17 11:04 | W.PN.ID1 ---
Date of Service
Date of Service: July 17, 2023
Today's Communication
Observe off abx.
Little more to offer from a Infectious Diseases standpoint.
Will see again at your request.
Assessment / Plan
Leukocytosis
Acute left knee pain; suspect hemarthrosis secondary to anticoagulation
- Joint aspiration without growth.
Right ankle pain; suspected gout
Elevated inflammatory markers
- Likely multifactorial
Paroxysmal A-fib (on Eliquis)
HTN
Asthma
CHF
COPD
Dyslipidemia
DM
REYNALDO
Pulmonary HTN
Recommendations:
Patient doing well off of antibiotics at present.
No indication of active infection.
Little more to offer from a Infectious Diseases standpoint.
Will see again at your request.
Chief Complaint
-: Other (Left knee pain.)
Subjective / Review of Systems
left knee pain is better.
Vital Signs / Physical Exam
Vital Signs
Vital Signs
Temp Pulse Resp BP Pulse Ox
98 F 69 19 141/59 96
07/17/23 07:09 07/17/23 07:09 07/17/23 07:09 07/17/23 07:09 07/17/23 07:09
Physical Exam
Constitutional: No Acute Distress
Pulmonary: Clear
Gastrointestinal: Soft, Non Tender and Non Distended
Objective Data
Lab Data
Lab Results
07/17/23 05:31
07/17/23 05:31
ESR 144 mm/hour (0-20) H 07/17/23 05:31
Estimated Creat Clear 71 ml/min 07/17/23 05:31
Total Bilirubin 0.7 mg/dl (0.2-1.3) 07/14/23 05:02
AST 58 U/L (17-59) 07/14/23 05:02
ALT 27 U/L (0-50) 07/14/23 05:02
Alkaline Phosphatase 90 U/L (38-126) 07/14/23 05:02
C-Reactive Protein 167.60 mg/L (0.0-10.00) H 07/17/23 05:31
Most recent labs reviewed.
Micro Results:
07/11/23 13:54 Wound Culture - Final
Knee - Left No growth
Gram Stain - Final
--- NOTE | 2023-07-17 11:57 | W.PN.NEPH.PH ---
Today's Communication / Plan
-
Follow-up electrolyte
Bumex
Fluid restriction
Assessment/Plan
-
IMP:
BL Left >right ankle pain -- suspected gout
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
hyponatremia
acute blood loss anemia Postop complicated by eliquis
Constipation
Paroxysmal A-fib/History of ablation
DM2/diabetic neuropathy
Chronic CHF preserved EF
HLD
GERD
BPH
Gout
Morbid obesity due to excess calorie consumption
PLan:
A/w on 07/07with left knee pain post arthroplasty 06/24
hyponatremia-u osmo high at 476, U na 38
Hyponatremia improved to 130 following Samsca administration 07/16/23
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
Continue FR 40 ounces/day when po diet established
will have to use one loop diuretic -bumex
BP stable
pain control
Possibly back to the OR tomorrow
-
-
Date of Service: July 17, 2023
CC / HPI / ROS
-
Chief Complaint:
Hyponatremia
History of Present Illness:
Serum sodium improved to 130 following Samsca administration on 07/15/23
Hemodynamically stable
Review of Systems:
non oliguric
no fevers
knee pain
Labs
-
Labs:
WBC 11.1 10^3/uL (4.8-10.8) H 07/17/23 05:31
RBC 3.28 10^6/uL (4.70-6.10) L 07/17/23 05:31
Hgb 8.8 g/dL (13.0-18.0) L 07/17/23 05:31
Hct 27.4 % (39.0-52.0) L 07/17/23 05:31
Plt Count 386 10^3/uL (130-400) 07/17/23 05:31
Sodium 130 mmol/L (135-145) L 07/17/23 05:31
Potassium 4.9 mmol/L (3.5-5.1) 07/17/23 05:31
Chloride 92 mmol/L (98-107) L 07/17/23 05:31
Carbon Dioxide 29 mmol/L (22-30) 07/17/23 05:31
BUN 32 mg/dl (9-20) H 07/17/23 05:31
Creatinine 1.0 mg/dL (0.7-1.3) 07/17/23 05:31
eGFR > 60.00 07/17/23 05:31
Glucose 108 mg/dl (70-99) H 07/17/23 05:31
Calcium 8.8 mg/dl (8.4-10.2) 07/17/23 05:31
Albumin 3.4 g/dl (3.5-5.0) L 07/14/23 05:02
Physical Exam
-
Vital Signs:
Vital Signs
Temp Pulse Resp BP Pulse Ox
98 F 69 19 141/59 96
07/17/23 07:09 07/17/23 07:09 07/17/23 07:09 07/17/23 07:09 07/17/23 07:09
Cardiovascular:: Regular rate and rhythm
Respiratory:: Bilateral: CTA
Lung Excursion:: Normal
Abdomen:: Nontender
Bowel Sounds:: Decreased
Extremity Edema:: +1: Bilateral:
Bruce Catheter: No
[2023-07-17 12:15] LABS: Glucose - Point of Care 175 mg/dl (70-99)
[2023-07-17] MEDS: NOVOLOG FLEXPEN-LOW RESISTANCE 175 UNITS SC (12:33)
--- NOTE | 2023-07-17 14:00 | CM ---
CM following re: discharge planning.
Reviewed pt's chart, met with pt.
Per chart review, N.p.o. after midnight for OR potentially tomorrow.
Per CM note a plan is for pt to go to [facility] for a short term rehab. PT and OT will reevaluate the pt when clinically appropriate.
D/C plan: [facility] when medically stable. Pt will need an auth from [facility] for skilled level of care at [facility].
CM will follow to assist pt with discharge to [facility] when medically stable.
[2023-07-17 14:10] VITALS: BP 126/65; BP 127/65; PULSE 68
[2023-07-17 15:22] VITALS: BP 134/66
--- NOTE | 2023-07-17 16:17 | PTCARENOTE ---
Soap suds enema (300ml warm water with package of soap, tip lubricated) Pt had a extremely large formed bowel movement shortly after & felt relieved.
[2023-07-17 16:54] LABS: Glucose - Point of Care 159 mg/dl (70-99)
[2023-07-17] MEDS: ROXICODONE 10 MG PO (19:30)
[2023-07-17] MEDS: SENOKOT 17.1999999999999993 MG PO (21:08)
[2023-07-17] MEDS: LIPITOR 20 MG PO (21:08)
[2023-07-17] MEDS: PROTONIX 40 MG PO (21:08)
[2023-07-17] MEDS: NEURONTIN 300 MG PO (21:08)
[2023-07-17 21:34] LABS: Glucose - Point of Care 179 mg/dl (70-99)
[2023-07-17 23:25] VITALS: BP 138/61
[2023-07-18 04:45] LABS: Hematocrit 27.1 % (39.0-52.0); Hemoglobin 8.8 g/dL (13.0-18.0); Mean Corp Hgb Conc. 32.5 g/dL (33.0-37.0); Mean Corpuscular Hgb 27.2 pg (27.0-31.0); Mean Corpuscular Volume 83.6 fL (80.0-94.0); Mean Platelet Volume 8.5 fL (7.4-10.4); Platelet Count 370 10^3/uL (130-400); Red Blood Cell Count 3.24 10^6/uL (4.70-6.10); Red Cell Dist. Width 15.6 % (11.5-14.5); White Blood Cell Count 9.3 10^3/uL (4.8-10.8)
[2023-07-18 05:08] LABS: Blood Urea Nitrogen 29 mg/dl (9-20); Calcium 8.6 mg/dl (8.4-10.2); Carbon Dioxide 27 mmol/L (22-30); Chloride 97 mmol/L (98-107); Estimated Creatinine Clearance 78 ml/min; Glucose 120 mg/dl (70-99); Potassium 4.7 mmol/L (3.5-5.1); Sodium 128 mmol/L (135-145); eGFR > 60.00
[2023-07-18 06:00] VITALS: BMI 32.0
--- NOTE | 2023-07-18 07:36 | W.PN.UPDATE ---
Update Note
Progress Note Update
82 year old male s/p left TKA.
Denies any left knee pain today, c/o pain in left foot and toe, which is similar to prior gout attacks.
NTTP over anterior knee, better ROM without pain.
Does not appear to be significant drainage on the dressing or active drainage from incision today.
Clean, dry abd placed over incision to allow the area to dry out.
continue to monitor crp and esr which were added on to labs this morning.
This is a very challenging decision making situtation as antibiotics were given prior to aspiration of the knee, making cultures less reliable.
If he were to proceed with surgery, he would likely be better served with a full revision TKA rather than I&D and liner exchange due to h/o diabetes and other medical comorbidities.
If ESR and CRP are elevated in comparison to yesterday, will likely continue to OR today.
If labs improving as has been trend the last few days, may hold on OR and monitor closely.
Case discussed with Dr. Chu.
[2023-07-18 07:40] LABS: Erythrocyte Sed Rate 126 mm/hour (0-20)
[2023-07-18 07:50] VITALS: BP 132/52
[2023-07-18 07:50] LABS: Glucose - Point of Care 130 mg/dl (70-99)
[2023-07-18] MEDS: MIRALAX PO (08:21)
[2023-07-18] MEDS: FLOMAX 0.400000000000000022 MG PO (08:22)
[2023-07-18] MEDS: COLACE 100 MG PO ×2 (08:22→20:05)
[2023-07-18] MEDS: BUMEX 1 MG PO (08:22)
[2023-07-18] MEDS: TOPROL XL 25 MG PO (08:22)
[2023-07-18] MEDS: ALDACTONE 12.5 MG PO (08:22)
[2023-07-18] MEDS: PROSCAR 5 MG PO (08:23)
[2023-07-18] MEDS: MUCINEX 1200 MG PO ×2 (08:23→20:06)
[2023-07-18] MEDS: COLCHICINE 0.599999999999999978 MG PO (08:24)
--- NOTE | 2023-07-18 08:35 | W.PN.UPDATE ---
Update Note
Progress Note Update
CRP has declined again, this time sharply and for the 5th consecutive day OFF antibiotics. In addition the wound is acutally looking better. Both of these facts occuring with the abx discontinues is suggestive to me that no infection is
present. Surgery today can be cancelled, pt can eat and be d/c home/rehab with local wound care of dry bandages with outpatient ortho fu next week. Sorry for requesting d/c be canceled for friday but I was not confident in pt's status since
empiric abx had been administered on admission and this results in 55% false neg rate for cultures. From my standpoing d/c on aspirin for 2 weeks ok. Would request no elequis since that's how he ended up w. so much hematoma and wound bleeding.
[2023-07-18] MEDS: ROXICODONE 10 MG PO ×3 (08:59→23:06)
--- NOTE | 2023-07-18 10:02 | CM ---
Addendum entered by Sean Lopez 07/18/23 14:28:
Updated PT and OT evaluations noted - Home PT/OT recommended.
CM discussed it with the pt, pt expressed his agreement. A list of VN vendors provided to the pt. Pt preferred [facility]. A referral to [facility] made.
Please fax discharge instructions to [facility] and discharge [phone].
D/C plan: home with [facility] and family support. Son to transport at discharge.
Original Note:
CM following re: discharge planning.
Reviewed pt's chart, met with pt.
Per chart review, surgery today can be cancelled, pt can eat and be d/c home/rehab with local wound care of dry bandages with outpatient ortho fu next week.
Per PT and OT pt is doing netter with PT and after care recommendations will be confirmed.
Per CM note a plan was to get pt to [facility] for a short term rehab. At this point pt might need lower level of care. CM asked PT to reevaluate the pt to confirm next level of care recommendation.
D/C plan: [facility] vs home PT. Awaiting for PT/OT reevaluation.
CM will follow to assist pt with discharge planning.
--- NOTE | 2023-07-18 10:16 | W.PN.NEPH.PH ---
Today's Communication / Plan
-
cont bumex, FR
samsca dose today
Assessment/Plan
-
IMP:
BL Left >right ankle pain -- suspected gout
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
hyponatremia
acute blood loss anemia Postop complicated by eliquis
Constipation
Paroxysmal A-fib/History of ablation
DM2/diabetic neuropathy
Chronic CHF preserved EF
HLD
GERD
BPH
Gout
Morbid obesity due to excess calorie consumption
PLan:
A/w on 07/07with left knee pain post arthroplasty 06/24
hyponatremia-u osmo high at 476, U na 38
Hyponatremia down to 128 todau, s/p Samsca administration 07/16/23, redose today
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
Continue FR 40 ounces/day
will cont loop diuretic -bumex
BP stable
pain control
upon d/c BMP on 3-4days
f/u with PCP
-
-
Date of Service: July 18, 2023
CC / HPI / ROS
-
Chief Complaint:
Hyponatremia
History of Present Illness:
Serum sodium down to 128, following Samsca administration on 07/15/23
Hemodynamically stable
no fever
Review of Systems:
non oliguric
no cp or sob
pain controlled
Labs
-
Labs:
WBC 9.3 10^3/uL (4.8-10.8) 07/18/23 04:24
RBC 3.24 10^6/uL (4.70-6.10) L 07/18/23 04:24
Hgb 8.8 g/dL (13.0-18.0) L 07/18/23 04:24
Hct 27.1 % (39.0-52.0) L 07/18/23 04:24
Plt Count 370 10^3/uL (130-400) 07/18/23 04:24
Sodium 128 mmol/L (135-145) L 07/18/23 04:24
Potassium 4.7 mmol/L (3.5-5.1) 07/18/23 04:24
Chloride 97 mmol/L (98-107) L 07/18/23 04:24
Carbon Dioxide 27 mmol/L (22-30) 07/18/23 04:24
BUN 29 mg/dl (9-20) H 07/18/23 04:24
Creatinine 0.9 mg/dL (0.7-1.3) 07/18/23 04:24
eGFR > 60.00 07/18/23 04:24
Glucose 120 mg/dl (70-99) H 07/18/23 04:24
Calcium 8.6 mg/dl (8.4-10.2) 07/18/23 04:24
Albumin 3.4 g/dl (3.5-5.0) L 07/14/23 05:02
Physical Exam
-
Vital Signs:
Vital Signs
Temp Pulse Resp BP Pulse Ox
98.2 F 61 18 132/52 97
07/18/23 07:50 07/18/23 07:50 07/18/23 07:50 07/18/23 07:50 07/18/23 08:00
Cardiovascular:: Regular rate and rhythm
Respiratory:: Bilateral: CTA
Lung Excursion:: Normal
Abdomen:: Nontender and Soft
Extremity Edema:: None: Bilateral:
Bruce Catheter: No
[2023-07-18] MEDS: SAMSCA 30 MG PO (10:22)
[2023-07-18] MEDS: ProAIR HFA INHALER 2 PUFF INH (11:41)
[2023-07-18 12:00] VITALS: BP 117/73; BP 135/67; PULSE 78
[2023-07-18 12:26] LABS: Glucose - Point of Care 188 mg/dl (70-99)
[2023-07-18 12:28] VITALS: BP 137/60
[2023-07-18] MEDS: TYLENOL 650 MG PO (12:52)
[2023-07-18] MEDS: NOVOLOG FLEXPEN-LOW RESISTANCE 1 UNITS SC (12:53)
--- NOTE | 2023-07-18 14:48 | W.PN.HOSP.TC ---
Today's Communication/Plan
-
DC planning
Assessment / Plan
Assessment / Plan
pt is an 82 year old male
BL Left >right ankle pain -- suspected gout despite uric acid level WNL--relief with IV decadron which he is not on currently--ESR and CRP markedly elevated -improving. cw Colchicine -continued improvement.Hold Allopurinol- advised him to stay off
of it as the gout flares are far in between.
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
ESR and CRP elevated -now improving--apprec ortho following--cont left knee immobilizer-- US neg for DVT--Continue oxycodone 5 mg moderate pain, 10 mg severe pain. Antibiotics DC'd by ID. Follow clinically. Left knee incision with some
purulence now - Ortho holding on OR. Ortho prefers ASA for atleast a week due to risk of bleeding - Dr Chu said he would see him in office in a week and if appropriate will start him back on Eliquis.
hyponatremia--dropping since admission-moderately low -on FR ;resume diuretics-- urine lytes noted. appt nephrology input. s/p one dose of Samsca 07/14- improved Na
acute blood loss anemia Postop complicated by eliquis-- status post left knee replaced 06/24--hgb 8s stable
Constipation-- -cont bowel regimen- BM with enema yesterday
Paroxysmal A-fib/History of ablation-- -Continue metoprolol succinate 25 mg daily.Hold Eliquis - for a week and restart if ok from ortho.
DM2/diabetic neuropathy--Accu-Cheks with SSI--restart metformin twice daily, restart Jardiance 10 mg daily; cw glimepiride 2 mg p.o. daily .Continue gabapentin 300 mg at bedtime
Chronic CHF preserved EF--no exacerbation--I/O, daily weights--hold jase Davies Bumex 1 mg daily
HLD--Continue atorvastatin 20 mg at bedtime
GERD--Continue Nexium 40 mg at bedtime
BPH--Continue dutasteride, Flomax 0.4 mg daily
Gout--Continue allopurinol
Morbid obesity due to excess calorie consumption--Weight loss recommended, 1800 ADA low-fat diet
DVT prophylaxis--Hold current Eliquis
Code status --DNR
DC in am if stable
Anticipated Discharge: Within 24 hours
Subjective/Interval History
-
Date of Service: July 18, 2023
Feeling progressively improved with ambulation. He is walking better. He still has some pain in the left ankle.
No fever or chills.
OR canceled as his left knee wound is improving and inflammatory markers are improving.
Patient is looking for discharge home tomorrow with the PT at home.
Objective Data
-
Labs:
Laboratory Results
07/18/23
04:24
WBC 9.3
Hgb 8.8 L
Hct 27.1 L
Plt Count 370
Sodium 128 L
Potassium 4.7
Chloride 97 L
Carbon Dioxide 27
BUN 29 H
Creatinine 0.9
Glucose 120 H
Calcium 8.6
Vital Signs:
Vital Signs
Temp Pulse Resp BP Pulse Ox
98.2 F 75 16 132/52 98
07/18/23 07:50 07/18/23 11:43 07/18/23 11:43 07/18/23 07:50 07/18/23 11:43
I&O
07/17/23 07/18/23 07/19/23
06:59 06:59 06:59
Intake Total 390 / 390 580 / 580
Output Total 1820 / 1820 1730 / 1730
Balance -1430 / -1430 -1150 / -1150
Review of Systems
-
Constitutional: Denies Fever
Respiratory: Denies Trouble Breathing
Cardiac: Denies Chest Pain
Abdomen/GI: Denies Abdominal Pain, Nausea, Vomiting or Constipated (Had BM with enema)
Neuro: Denies Dizzy
Physical Exam
-
General: No Apparent Distress
HEENT: Moist Mucous Membranes
Respiratory: Clear to Auscultation
Cardiac: Regular Rhythm and S1/S2
Neuro: AO x 3
Data Reviewed
-
Labs: Labs Reviewed by me
[2023-07-18] MEDS: OCEAN, SALINE MIST 4 SPRAYS NASAL (15:17)
[2023-07-18 15:30] VITALS: BP 138/68
[2023-07-18 16:59] LABS: Glucose - Point of Care 140 mg/dl (70-99)
[2023-07-18] MEDS: NOVOLOG FLEXPEN-LOW RESISTANCE SC (17:37)
[2023-07-18] MEDS: GLUCOPHAGE 1000 MG PO (17:37)
[2023-07-18] MEDS: ASPIRIN 325 MG PO (17:37)
[2023-07-18 21:48] LABS: Glucose - Point of Care 140 mg/dl (70-99)
[2023-07-18] MEDS: LIPITOR 20 MG PO (22:10)
[2023-07-18] MEDS: SENOKOT 17.1999999999999993 MG PO (22:10)
[2023-07-18] MEDS: NEURONTIN 300 MG PO (22:10)
[2023-07-18] MEDS: PROTONIX 40 MG PO (22:10)
[2023-07-18 23:05] VITALS: BP 131/62
[2023-07-19 03:00] VITALS: BP 126/54
[2023-07-19 06:00] VITALS: BMI 32.2
[2023-07-19 07:13] VITALS: BP 130/56
[2023-07-19 07:23] LABS: Glucose - Point of Care 137 mg/dl (70-99)
[2023-07-19] MEDS: NOVOLOG FLEXPEN-LOW RESISTANCE SC ×3 (07:31→17:36)
[2023-07-19] MEDS: MIRALAX 17 GRAMS PO (08:38)
[2023-07-19] MEDS: COLCHICINE 0.599999999999999978 MG PO (08:40)
[2023-07-19] MEDS: JARDIANCE 10 MG PO (08:43)
[2023-07-19] MEDS: MUCINEX 1200 MG PO (08:43)
[2023-07-19] MEDS: GLUCOPHAGE 1000 MG PO ×2 (08:44→17:05)
[2023-07-19] MEDS: FLOMAX 0.400000000000000022 MG PO (08:44)
[2023-07-19] MEDS: COLACE 100 MG PO (08:44)
[2023-07-19] MEDS: PROSCAR 5 MG PO (08:44)
[2023-07-19] MEDS: TOPROL XL 25 MG PO (08:44)
[2023-07-19] MEDS: BUMEX 1 MG PO (08:44)
[2023-07-19] MEDS: ASPIRIN 325 MG PO (08:45)
[2023-07-19] MEDS: ALDACTONE 12.5 MG PO (08:45)
[2023-07-19] MEDS: ROXICODONE 10 MG PO ×2 (08:55→17:05)
[2023-07-19 10:09] LABS: Blood Urea Nitrogen 25 mg/dl (9-20); Carbon Dioxide 26 mmol/L (22-30); Chloride 98 mmol/L (98-107); Estimated Creatinine Clearance 78 ml/min; Glucose 177 mg/dl (70-99); Sodium 129 mmol/L (135-145); eGFR > 60.00
[2023-07-19 12:08] LABS: Glucose - Point of Care 92 mg/dl (70-99)
--- NOTE | 2023-07-19 12:47 | W.PN.HOSP.TC ---
Today's Communication/Plan
-
DC
Assessment / Plan
Assessment / Plan
pt is an 82 year old male
BL Left >right ankle pain -- suspected gout despite uric acid level WNL--relief with IV decadron which he is not on currently--ESR and CRP markedly elevated -improving. cw Colchicine for another 5 days or earlier if pain resolves-continued
improvement.Hold Allopurinol- advised him to stay off of it as the gout flares are far in between.
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
ESR and CRP elevated -now improving--apprec ortho following--cont left knee immobilizer-- US neg for DVT--Continue oxycodone 5 mg moderate pain, 10 mg severe pain. Antibiotics DC'd by ID. Follow clinically. Left knee incision with some
purulence now - Ortho holding on OR. Ortho prefers ASA for atleast a week due to risk of bleeding - Dr Chu said he would see him in office in a week and if appropriate will start him back on Eliquis. This was communicated with the patient
today.
hyponatremia--dropping since admission-moderately low -on FR ;resume diuretics-- urine lytes noted. appt nephrology input. s/p one dose of Samsca 4/5- improved Na
acute blood loss anemia Postop complicated by eliquis-- status post left knee replaced 06/24--hgb 8s stable
Constipation-- -cont bowel regimen- BM with enema
Paroxysmal A-fib/History of ablation-- -Continue metoprolol succinate 25 mg daily.Hold Eliquis - for a week and restart if ok from ortho.
DM2/diabetic neuropathy--Accu-Cheks with SSI--restart metformin twice daily, restart Jardiance 10 mg daily; cw glimepiride 2 mg p.o. daily .Continue gabapentin 300 mg at bedtime
Chronic CHF preserved EF--no exacerbation--I/O, daily weights--hold jase Davies Bumex 1 mg daily
HLD--Continue atorvastatin 20 mg at bedtime
GERD--Continue Nexium 40 mg at bedtime
BPH--Continue dutasteride, Flomax 0.4 mg daily
Gout--Continue allopurinol
Morbid obesity due to excess calorie consumption--Weight loss recommended, 1800 ADA low-fat diet
DVT prophylaxis--Hold current Eliquis
Code status --DNR
Medically stable for discharge home today.
More than 30 minutes spent in discharge including
Final examination of the patient
Summarizing hospital stay
Instructions for continuing care to all relevant caregivers
Preparation of discharge records, prescriptions, and referral forms
Total time spent (in minutes): 35
Anticipated Discharge: Today
Subjective/Interval History
-
Date of Service: July 19, 2023
Continued improvement of bilateral ankle pain. Moving better.
Objective Data
-
Labs:
Laboratory Results
07/19/23
09:11
Sodium 129 L
Potassium 5.0
Chloride 98
Carbon Dioxide 26
BUN 25 H
Creatinine 0.9
Glucose 177 H
Calcium 9.0
Vital Signs:
Vital Signs
Temp Pulse Resp BP Pulse Ox
98.8 F 69 18 130/56 96
07/19/23 07:13 07/19/23 08:45 07/19/23 07:13 07/19/23 08:45 07/19/23 08:00
I&O
07/18/23 07/19/23 07/20/23
06:59 06:59 06:59
Intake Total 580 / 580 1200 / 1200
Output Total 1730 / 1730 1875 / 1875
Balance -1150 / -1150 -675 / -675
Review of Systems
-
Constitutional: Denies Fever
Respiratory: Denies Cough or Trouble Breathing
Cardiac: Denies Chest Pain
Abdomen/GI: Denies Abdominal Pain, Nausea, Vomiting, Diarrhea or Constipated (had BM today)
Genitourinary: Denies Dysuria
Neuro: Denies Dizzy
Physical Exam
-
General: No Apparent Distress
HEENT: Moist Mucous Membranes
Respiratory: Clear to Auscultation
Cardiac: Regular Rhythm and S1/S2
GI: Soft
Neuro: AO x 3
Psych: Calm; Negative Confused or Agitated
Data Reviewed
-
Labs: Labs Reviewed by me
--- NOTE | 2023-07-19 12:58 | W.DS.TRANS ---
DC Summary - Study Specialist
-
Discharge Instructions:
Discharge Diagnosis/Procedures Left knee pain post replacement - no obvious
infection; BL ankle pain sec to gout;
Hyponatremia
Diet Restrict fluids to 48 oz,Diabetic, Carb
Controlled
Activity As tolerated
Driving Restrictions Not until seen by your Dr
Bathing Restrictions None
Blood Work BMP in a week -obtain through your PCP
Other Services PT,VN
Instructions:
Stand-Alone Forms:
Changes to Home Medications: Yes
Discharge Medications:
DC Medications w/original date entered in [employer]
atorvastatin 10 mg tablet 20 mg PO HS High cholesterol 04/06/13
fluticasone propionate 50 mcg/actuation nasal spray,suspension 2 spry intranasal BID Allergies 04/06/13
esomeprazole magnesium 40 mg capsule,delayed release (Nexium) 40 mg PO HS Gastrointestinal issue 02/07/19
metformin 1,000 mg tablet 1,000 mg PO BID Diabetes 02/07/19
albuterol sulfate 90 mcg/actuation aerosol inhaler 2 puff inhalation R Q4HPRN PRN sob 03/16/20
metoprolol succinate 25 mg tablet,extended release 24 hr 25 mg PO DAILY #30 tabs 08/17/21
tamsulosin 0.4 mg capsule 0.4 mg PO DAILY #30 caps 08/17/21
gabapentin 300 mg capsule 300 mg PO HS sleep/pain #10 caps 06/26/23
apixaban 5 mg tablet (Eliquis) 5 mg PO BID dvt prophylaxis/afibb 07/08/23
bumetanide 1 mg tablet 1 mg PO DAILY Fluid Retention/Swelling 07/08/23
dutasteride 0.5 mg capsule 0.5 mg PO DAILY Urinary Issue 07/08/23
empagliflozin 10 mg tablet (Jardiance) 10 mg PO DAILY Diabetes 07/08/23
glimepiride 2 mg tablet 2 mg PO DAILY Diabetes 07/08/23
spironolactone 25 mg tablet 12.5 mg PO DAILY Blood Pressure 07/08/23
acetaminophen 325 mg tablet 650 mg (2 x 325 mg) PO Q6HPRN PRN mild pain/ fever>100.5F #1 tab 07/19/23
aspirin 325 mg tablet 325 mg PO DAILY #10 tabs 07/19/23
colchicine 0.6 mg tablet 0.6 mg PO DAILY #5 tabs 07/19/23
docusate sodium 100 mg capsule 100 mg PO BID #60 caps 07/19/23
oxycodone 5 mg tablet 5 mg PO Q6H PRN moderate pain #20 tabs 07/19/23
polyethylene glycol 3350 17 gram oral powder packet (HealthyLax) 17 g PO DAILY #30 ea 07/19/23
Home Medication Changes
Hold medication-Eliquis till cleared by orthopedics and in meantime aspirin daily for milligrams daily
New medication-MiraLAX, oxycodone, Colace, colchicine
Pending Results: No
--- NOTE | 2023-07-19 13:23 | CM ---
Received auth from [facility]. Met with patient and spoke to RN. Plan was changed to home with [facility] as patient did not have surgery on Friday. Patient signed IMM.
[2023-07-19 15:30] VITALS: BP 136/65
--- NOTE | 2023-07-19 17:00 | W.DCSUMMARY ---
Discharge Summary
Discharge Data
Date of Admission: 07/08/23
Date of Discharge: 07/19/23
-
Pending Results: No
Hospital Course
primary diagnosis:
Bilateral ankle pain left more than right suspicious for acute gouty arthritis
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
Acute blood loss anemia without need of transfusion
Constipation
Secondary diagnosis:
History of paroxysmal fibrillation status post prior ablation
Diabetes mellitus type 2
Chronic heart failure with preserved EF
Hyperlipidemia
Gastroesophageal reflux disease
Benign prostatic hypertension
Hospital course:
patient with left knee arthroplasty 06/25/2023 presented to the hospital 2 weeks later with sudden increase in pain without any injury or event. He had mild bleeding at the distal incision. He had generalized swelling as expected in the left knee.
His neurovascular bundle was intact in the leg. He was seen by orthopedics ,was kept in immobilizer. When inflammatory markers were checked they were elevated. There was an initial attempt to tap the knee which only brought 3 mL of bloody
aspirate . So a repeat tap was again obtained 07/12 by then he was on antibiotics. The cultures of the joint fluid were negative. ID stopped antibiotics after the culture data was negative. He was observed for a few more days post antibiotic
discontinuation and showed no wound discharge. Orthopedics were comfortable without need of any joint exploration at this current time. His inflammatory markers were coming down.
There is another element was bilateral ankle left more than right joint pains. He was not able to ambulate much because of ankle pains. He has a history of gout and he had prior ankles gouty arthritis. He was initially on colchicine which
improved his pain quite good and he was able to ambulate so he can go home on home therapy. Inflammatory markers were also coming down. He was advised to continue with colchicine. His gouty arthritis flares are far in between so advised to hold
prophylactic allopurinol.
In view of hemarthrosis while he was on anticoagulation and suspected hemarthrosis orthopedics wanted to hold anticoagulation at least for a week. In meantime he was put on aspirin. Will follow with the orthopedic next week and resume Eliquis if
appropriate.
on this admission he was noted to be hyponatremic which got progressively worse to 126. urinalysis showed high Osm 476 and urine sodium 38. 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 Needed 2 doses of Samsca with improvement in sodium to 129 prior to discharge.
Advised to continue fluid restriction and continue with his Bumex and repeat BMP next week.
Consultants on board:
Infectious disease
Orthopedics-Dr. Chu
Nephrology-Dr. Dean
Discharge Plan
-
Patient Disposition: Home with Home Care
Discharge Diagnosis/Procedures: Left knee pain post replacement - no obvious infection; BL ankle pain sec to gout; Hyponatremia
Diet: Diabetic, Carb Controlled and Restrict fluids to 48 oz
Activity: As tolerated
Driving Restrictions: Not until seen by your Dr
Bathing Restrictions: None
Blood Work: BMP in a week -obtain through your PCP
Other Services: VN and PT
Referrals:
Paul Ozuna, PA-C [Specified Professional Personl] - in one week (Myself or any of our PAs)
Minnie Arreguin DO [Family Provider] - in less than 1 week
Prescriptions:
New
polyethylene glycol 3350 [HealthyLax] 17 gram Powder In Packet
17 g PO DAILY Qty: 30 0RF
docusate sodium 100 mg Capsule
100 mg PO BID Qty: 60 0RF
colchicine 0.6 mg Tablet
0.6 mg PO DAILY Qty: 5 0RF
acetaminophen 325 mg Tablet
650 mg PO Q6HPRN PRN (Reason: mild pain/ fever>100.5F) Qty: 1 0RF
aspirin 325 mg tablet
325 mg PO DAILY Qty: 10 0RF
Continued
fluticasone propionate 1 SPRAY spray,suspension
2 spry intranasal BID
atorvastatin 10 MG tablet
20 mg PO HS
metformin 1,000 MG tablet
1,000 mg PO BID
esomeprazole magnesium [Nexium] 40 MG capsule,delayed release(DR/EC)
40 mg PO HS
albuterol sulfate 1 PUFF HFA aerosol inhaler
2 puff inhalation R Q4HPRN PRN (Reason: sob)
tamsulosin 0.4 MG capsule
0.4 mg PO DAILY Qty: 30 0RF
metoprolol succinate 25 MG tablet extended release 24 hr
25 mg PO DAILY Qty: 30 0RF
gabapentin 300 mg capsule
300 mg PO HS Qty: 10 0RF
spironolactone 25 mg tablet
12.5 mg PO DAILY
glimepiride 2 mg tablet
2 mg PO DAILY
bumetanide 1 mg tablet
1 mg PO DAILY
dutasteride 0.5 mg capsule
0.5 mg PO DAILY
Jardiance 10 mg tablet
10 mg PO DAILY
oxycodone 5 mg tablet
5 mg PO Q6H PRN (Reason: moderate pain) Qty: 20 0RF
Held
Eliquis 5 mg tablet
5 mg PO BID
Hold Instructions: Resume on 07/28/23. Till cleared by Ortho Dr Chu
Discontinued
allopurinol 300 MG tablet
300 mg PO HS PRN (Reason: gout)
torsemide 10 mg Tablet
10 mg PO DAILY
oxycodone 5 mg tablet
10 mg PO Q6H PRN (Reason: severe pain)
Patient Comments:
07/08/2023: last filled 07/07/23, 30 tabs for 5 days from [facility]
Discharge Orders:
Discharge Patient (As Directed); Ordered 07/19/23
Ordered By: Kyle Payne
Discharge Date and Time
Print Language: POLISH
--- NOTE | 2023-07-19 17:15 | W.PN.NEPH.PH ---
Today's Communication / Plan
-
see plan
Assessment/Plan
-
IMP:
BL Left >right ankle pain -- suspected gout
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
hyponatremia
acute blood loss anemia Postop complicated by eliquis
Constipation
Paroxysmal A-fib/History of ablation
DM2/diabetic neuropathy
Chronic CHF preserved EF
HLD
GERD
BPH
Gout
Morbid obesity due to excess calorie consumption
PLan:
A/w on 07/07with left knee pain post arthroplasty 06/24
hyponatremia-u osmo high at 476, U na 38
Hyponatremia no sig change at 129 s/p Samsca administration 07/16/23, 07/17
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
Continue FR 40 ounces/day
will cont loop diuretic -bumex
BP stable
pain control
upon d/c BMP on 3-4days
f/u with PCP
-
-
Date of Service: July 19, 2023
CC / HPI / ROS
-
Chief Complaint:
Hyponatremia
History of Present Illness:
Serum sodium up at 129, following Samsca administration on 07/15/23, 07/17
Hemodynamically stable
no fever
Review of Systems:
non oliguric
no cp or sob
pain controlled
Labs
-
Labs:
WBC 9.3 10^3/uL (4.8-10.8) 07/18/23 04:24
RBC 3.24 10^6/uL (4.70-6.10) L 07/18/23 04:24
Hgb 8.8 g/dL (13.0-18.0) L 07/18/23 04:24
Hct 27.1 % (39.0-52.0) L 07/18/23 04:24
Plt Count 370 10^3/uL (130-400) 07/18/23 04:24
Sodium 129 mmol/L (135-145) L 07/19/23 09:11
Potassium 5.0 mmol/L (3.5-5.1) 07/19/23 09:11
Chloride 98 mmol/L (98-107) 07/19/23 09:11
Carbon Dioxide 26 mmol/L (22-30) 07/19/23 09:11
BUN 25 mg/dl (9-20) H 07/19/23 09:11
Creatinine 0.9 mg/dL (0.7-1.3) 07/19/23 09:11
eGFR > 60.00 07/19/23 09:11
Glucose 177 mg/dl (70-99) H 07/19/23 09:11
Calcium 9.0 mg/dl (8.4-10.2) 07/19/23 09:11
Albumin 3.4 g/dl (3.5-5.0) L 07/14/23 05:02
Physical Exam
-
Vital Signs:
Vital Signs
Temp Pulse Resp BP Pulse Ox
98.8 F 64 19 136/65 98
07/19/23 15:30 07/19/23 15:30 07/19/23 15:30 07/19/23 15:30 07/19/23 15:30
Cardiovascular:: Regular rate and rhythm
Respiratory:: Bilateral: CTA
Lung Excursion:: Normal
Abdomen:: Nontender and Soft
Extremity Edema:: None: Bilateral:
Bruce Catheter: No
[2023-07-19 19:00] VITALS: BP 132/69
== END 2023-07-19 19:35 | disposition home health service (06) | DRG 813 ==
LOC: 2 SOUTH 21:51
PROVIDERS: Clinical Nurse Specialist Family Health; Internal Medicine; Orthopaedic Surgery; Physician Assistant Medical; ADMITTING PHYSICIAN Hospitalist; ATTENDING PHYSICIAN Internal Medicine; CONSULT PHYSICIAN Internal Medicine; CONSULT PHYSICIAN Internal Medicine Infectious Disease; CONSULT PHYSICIAN Orthopaedic Surgery; EMERGENCY PHYSICIAN Emergency Medicine; FAMILY PHYSICIAN Family Medicine
PROC: 0S9D3ZX Drainage of Left Knee Joint, Percutaneous Approach, Diagnostic (ICD-10-PCS; 2023-07-11)
PROC: 5A09357 Assistance with Respiratory Ventilation, Less than 24 Consecutive Hours, Continuous Positive Airway Pressure (ICD-10-PCS; 2023-07-12)
DX: D68.32 Hemorrhagic disorder due to extrinsic circulating anticoagulants (principal); I50.32 Chronic diastolic (congestive) heart failure; D62 Acute posthemorrhagic anemia; M25.062 Hemarthrosis, left knee; E22.2 Syndrome of inappropriate secretion of antidiuretic hormone; E11.40 Type 2 diabetes mellitus with diabetic neuropathy, unspecified; E78.00 Pure hypercholesterolemia, unspecified; G47.33 Obstructive sleep apnea (adult) (pediatric); I11.0 Hypertensive heart disease with heart failure; I27.20 Pulmonary hypertension, unspecified; J44.89 Other specified chronic obstructive pulmonary disease; I25.10 Atherosclerotic heart disease of native coronary artery without angina pectoris; E66.01 Morbid (severe) obesity due to excess calories; M17.12 Unilateral primary osteoarthritis, left knee; D72.829 Elevated white blood cell count, unspecified; M25.571 Pain in right ankle and joints of right foot; M25.572 Pain in left ankle and joints of left foot; I48.0 Paroxysmal atrial fibrillation; K21.9 Gastro-esophageal reflux disease without esophagitis; M10.9 Gout, unspecified; N40.0 Benign prostatic hyperplasia without lower urinary tract symptoms; K59.00 Constipation, unspecified; Z96.652 Presence of left artificial knee joint; Z79.51 Long term (current) use of inhaled steroids; Z79.84 Long term (current) use of oral hypoglycemic drugs; Z79.891 Long term (current) use of opiate analgesic; Z79.01 Long term (current) use of anticoagulants; Z87.891 Personal history of nicotine dependence; Z68.32 Body mass index [BMI] 32.0-32.9, adult; Z91.041 Radiographic dye allergy status; Z91.013 Allergy to seafood; Z83.3 Family history of diabetes mellitus; Z82.0 Family history of epilepsy and other diseases of the nervous system; Z82.49 Family history of ischemic heart disease and other diseases of the circulatory system; Z66 Do not resuscitate
CPT/HCPCS: 73564; 80048; 80053; 82550; 82728; 82962; 83540; 83550; 83735; 83935; 84300; 84550; 85018; 85025; 85027; 85652; 86140; 86850; 86900; 86901; 87070; 87205; 93971; 94640; 94660; 96374; 96375; 97110; 97116; 97162; 97166; 97530; 97535; 99285

== ENCOUNTER 2023-07-30 11:11 | Emergency (ER) | payer OTHER, SELFPAY ==
[2023-07-30 11:15] VITALS: BP 115/61
--- NOTE | 2023-07-30 13:11 | ED.GENMED ---
History of Present Illness
<Grzegorz Lai PA-C - Last Filed: 07/30/23 13:17>
General
Chief Complaint: Abnormal Lab Value
Source: patient and spouse
Time Seen by Provider: 07/30/23 12:11
Travel History
Have you had any contact with someone who has COVID-19?: No
Do you have any symptoms of coronavirus? Fever > 100 degrees, chills, cough, shortness of breath, sore throat, loss of taste or smell, muscle aches, or headache?: No
History of Present Illness
History of Present Illness:
82-year-old male with past medical history of atrial fibrillation, CHF, hypertension, hyperlipidemia, diabetes, status post left knee arthrocentesis which unfortunately resulted in a infected joint, had a prolonged hospitalization for treat
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
patient to the ER for CT scan of the chest. Patient's notes that patient really only has some shortness of breath when going up the stairs and patient would agree with this as well. Presently he has no complaints stating he feels that his
knee is improving significantly, denies any cough, hemoptysis, pleurisy, chest pain or any other concerns. Patient has yet to resume his Eliquis as he was not told by any of his providers that he should.
Past History
<Grzegorz Lai PA-C - Last Filed: 07/30/23 13:17>
Past History
ED Past Medical History: Asthma, CHF, COPD, HTN, Hypercholesterolemia, NIDDM and Other (Dyspnea, sleep apnea, pulmonary hypertension)
ED Past Surgical History: Cardiac (Cardiac catheterization which showed normal coronaries, but mild pulmonary hypertension) and Other (Trigger finger surgery)
Social History
Tobacco: Former smoker
Alcohol: None
Drug: None
Personal:
Living: with family
Employment: Retired
Family History
Family History: Other (daughter has severe trigeminal neuralgia)
Review of Systems
<Grzegorz Lai PA-C - Last Filed: 07/30/23 13:17>
Review of Systems
All Other Systems: ROS reviewed and negative except as documented in HPI and ROS
Phy Exam
<Grzegorz Lai PA-C - Last Filed: 07/30/23 13:17>
Physical Exam
Physical Exam:
GENERAL: Alert , in no apparent distress
EYE: Clear conjunctiva
NECK: Supple
ENT: o/p clr, mmm.
CARDIAC: Regular rate and rhythm .
LUNGS: Clear breath sounds bilaterally, no acute respiratory distress, no wheezes/rales/rhonchi
NEUROLOGICAL: Alert and oriented
SKIN: Warm and dry, scar over the anterior left patella without any dehiscence or surrounding erythema
MUSCULOSKELETAL: Mild to moderate soft tissue swelling of the left anterior knee (per this seems to be improved over the last few days) well perfused.
PSYCH: Normal and appropriate interaction.
Scores
<Grzegorz Lai PA-C - Last Filed: 07/30/23 13:17>
Heart Failure Risk
Heart Failure Risk Score: Not Applicable
Heart Score for Chest Pain Patients
STEMI patient?: Not applicable
Withdrawal Assessment of Alcohol
Withdrawal Assessment Completed?: Not applicable
Course
<Grzegorz Lai PA-C - Last Filed: 07/30/23 13:17>
Orders/Labs/Results
Orders:
Orders
07/30/23 12:11
CT Chest Pe Study Urgent
Comment:
Reason For Exam: SOB, elevated d-dimer, recent surgery
07/30/23 13:00
Basic Metabolic Panel Urgent
Complete Blood Count/With Diff Urgent
PTT Urgent
Prothrombin Time Urgent
07/30/23 13:33
NT-proBNP Urgent
07/30/23 14:22
Oxycodone [Roxicodone] 5 mg PO NOW STA
Abnormal Lab Results
07/30/23
13:00
RBC 3.40 L 10^6/uL
(4.70-6.10)
Hgb 9.2 L g/dL
(13.0-18.0)
Hct 27.4 L %
(39.0-52.0)
RDW 16.1 H %
(11.5-14.5)
Absolute Monos (auto) 0.7 H 10^3/uL
(0.1-0.6)
Lymphocytes % 14.8 L %
(20.5-51.1)
PT 15.1 H Sec
(11.4-14.6)
Sodium 129 L mmol/L
(135-145)
Chloride 95 L mmol/L
(98-107)
BUN 29 H mg/dl
(9-20)
Glucose 118 H mg/dl
(70-99)
07/30/23 13:00
07/30/23 13:00
Vital Signs
Initial and Last Documented VS:
Initial Vital Signs
Temp Pulse Resp BP Pulse Ox
98.1 F 91 18 115/61 96
07/30/23 11:15 07/30/23 11:15 07/30/23 11:15 07/30/23 11:15 07/30/23 11:15
Last Documented Vital Signs
Temp Pulse Resp BP Pulse Ox
98.1 F 69 16 129/52 99
07/30/23 11:15 07/30/23 15:00 07/30/23 15:00 07/30/23 14:04 07/30/23 14:30
<Calderon Erwin PA-C - Last Filed: 07/30/23 19:05>
Orders/Labs/Results
Orders:
Orders
07/30/23 12:11
CT Chest Pe Study Urgent
Comment:
Reason For Exam: SOB, elevated d-dimer, recent surgery
07/30/23 13:00
Basic Metabolic Panel Urgent
Complete Blood Count/With Diff Urgent
PTT Urgent
Prothrombin Time Urgent
07/30/23 13:33
NT-proBNP Urgent
07/30/23 14:22
Oxycodone [Roxicodone] 5 mg PO NOW STA
Abnormal Lab Results
07/30/23
13:00
RBC 3.40 L 10^6/uL
(4.70-6.10)
Hgb 9.2 L g/dL
(13.0-18.0)
Hct 27.4 L %
(39.0-52.0)
RDW 16.1 H %
(11.5-14.5)
Absolute Monos (auto) 0.7 H 10^3/uL
(0.1-0.6)
Lymphocytes % 14.8 L %
(20.5-51.1)
PT 15.1 H Sec
(11.4-14.6)
Sodium 129 L mmol/L
(135-145)
Chloride 95 L mmol/L
(98-107)
BUN 29 H mg/dl
(9-20)
Glucose 118 H mg/dl
(70-99)
07/30/23 13:00
07/30/23 13:00
Vital Signs
Initial and Last Documented VS:
Initial Vital Signs
Temp Pulse Resp BP Pulse Ox
98.1 F 91 18 115/61 96
07/30/23 11:15 07/30/23 11:15 07/30/23 11:15 07/30/23 11:15 07/30/23 11:15
Last Documented Vital Signs
Temp Pulse Resp BP Pulse Ox
98.1 F 69 16 129/52 99
07/30/23 11:15 07/30/23 15:00 07/30/23 15:00 07/30/23 14:04 07/30/23 14:30
<Grzegorz Lai PA-C - Last Filed: 07/30/23 13:17>
MDM/Problems Addressed
Differential Diagnosis Includes:
PE, CHF exacerbation, anemia
MDM/Problems Addressed:
82-year-old male presenting the emergency department for evaluation of mild shortness of breath following a recent surgery and prolonged hospitalization. Supposed to be on Eliquis due to a history of A-fib but has not been able to restart this
medication. He is otherwise well-appearing, smiling and pleasant in no acute respiratory distress. CT ordered at the request of patient's material stockkeeper yard after patient had a D-dimer which resulted greater than 11.
Chronic conditions affecting care: Other (CHF)
<Grzegorz Lai PA-C - Last Filed: 07/30/23 13:17>
*Pulse Oximetry
Patient hypoxic: no
Data Reviewed
Review of Other/Old Records Reveals: Labs and Records
Source: patient and records
<Calderon Erwin PA-C - Last Filed: 07/30/23 19:05>
*Critical Care Note
Total Time (30-74mins, 75-104mins- exclusive of procedures): Not Applicable
<Calderon Erwin PA-C - Last Filed: 07/30/23 19:05>
Update Note
Update Note:
CT result reviewed. no PE. Pt will continue asa for clot prevention per Ortho recommendations, Ortho f/u tomorrow
ED Attending Note
<Grzegorz Lai PA-C - Last Filed: 07/30/23 13:17>
-
Portions of this chart may have been created with voice recognition software.� Occasional wrong word or��sound alike� substitutions may have occurred due to the inherent limitations of voice recognition software.
Discharge Plan
Departure
Patient Disposition: Home (Routine Discharge)
Date of Disposition: 07/30/23
Time of Disposition: 15:46
Patient with high blood pressure during this ER visit?: No
Discharge Problem:
D-dimer, elevated
Prescriptions:
No Action
fluticasone propionate 1 SPRAY spray,suspension
2 spry intranasal BID
atorvastatin 10 MG tablet
20 mg PO HS
metformin 1,000 MG tablet
1,000 mg PO BID
esomeprazole magnesium [Nexium] 40 MG capsule,delayed release(DR/EC)
40 mg PO HS
albuterol sulfate 1 PUFF HFA aerosol inhaler
2 puff inhalation R Q4HPRN PRN (Reason: sob)
metoprolol succinate 25 MG tablet extended release 24 hr
25 mg PO DAILY Qty: 30 0RF
spironolactone 25 mg tablet
12.5 mg PO DAILY
glimepiride 2 mg tablet
2 mg PO DAILY
bumetanide 1 mg tablet
1 mg PO DAILY
dutasteride 0.5 mg capsule
0.5 mg PO DAILY
Jardiance 10 mg tablet
10 mg PO DAILY
Eliquis 5 mg tablet
5 mg PO BID
Hold Instructions: Resume on 07/28/23. Till cleared by Ortho Dr Chu
acetaminophen 325 mg Tablet
650 mg PO Q6HPRN PRN (Reason: mild pain/ fever>100.5F) Qty: 1 0RF
aspirin 325 mg tablet
325 mg PO DAILY Qty: 10 0RF
torsemide 10 mg Tablet
10 mg PO DAILY
tamsulosin 0.4 MG capsule
0.4 mg PO BID
oxycodone 5 mg tablet
5 mg PO Q6H PRN (Reason: severe Pain)
Referrals:
NONE,* [Active] -
Activity Restrictions/Additional Instructions:
Discuss with orthopedics tomorrow regarding when to restart your blood thinner
Interventions
Interventions:
*Risk Screen - Suicide Last Done: 07/30/23 16:07
*General Assessment Last Done: 07/30/23 13:38
*Neglect/Abuse Screening Last Done: 07/30/23 16:07
ED- Fall Risk Assessment Last Done: 07/30/23 13:38
*ED COVID-19 Vaccine History Last Done: 07/30/23 11:15
*Nursing Disposition Last Done: 07/30/23 16:07
Discharge Date and Time
Discharge Date/Time: 07/30/23 16:07
Print Language: EAST [place]
[2023-07-30 13:38] LABS: Blood Urea Nitrogen 29 mg/dl (9-20); Calcium 9.1 mg/dl (8.4-10.2); Carbon Dioxide 29 mmol/L (22-30); Chloride 95 mmol/L (98-107); Glucose 118 mg/dl (70-99); Sodium 129 mmol/L (135-145); eGFR > 60.00
[2023-07-30 13:45] LABS: % Basophils 0.5 % (0-2); % Eosinophils 1.9 % (0-6); % Immature Granulocytes 0.5 % (0-0.5); % Lymphocytes 14.8 % (20.5-51.1); % Monocytes 8.1 % (1.7-9.3); % Neutrophils 74.2 % (42.2-75.2); Absolute Eosinophils 0.2 10^3/uL (0-0.7); Absolute Lymphocytes 1.3 10^3/uL (1.2-3.4); Absolute Monocytes 0.7 10^3/uL (0.1-0.6); Absolute Neutrophils 6.3 10^3/uL (1.4-6.5); Hematocrit 27.4 % (39.0-52.0); Hemoglobin 9.2 g/dL (13.0-18.0); Mean Corp Hgb Conc. 33.6 g/dL (33.0-37.0); Mean Corpuscular Hgb 27.1 pg (27.0-31.0); Mean Corpuscular Volume 80.6 fL (80.0-94.0); Mean Platelet Volume 8.6 fL (7.4-10.4); Nucleated Red Blood Cells % 0 % (-); Platelet Count 294 10^3/uL (130-400); Red Cell Dist. Width 16.1 % (11.5-14.5); White Blood Cell Count 8.5 10^3/uL (4.8-10.8)
[2023-07-30 14:01] LABS: INR 1.19; PT 15.1 Sec (11.4-14.6)
[2023-07-30 14:04] VITALS: BP 129/52
[2023-07-30 14:07] LABS: APTT 33.4 Sec (23.4-35.0)
[2023-07-30 14:22] LABS: NT-proBNP 132 pg/ml
[2023-07-30] MEDS: ROXICODONE 5 MG PO (14:56)
== END 2023-07-30 16:07 | disposition home or self-care (01) ==
LOC: EMR 11:11
PROVIDERS: Physician Assistant Medical; EMERGENCY PHYSICIAN Emergency Medicine; FAMILY PHYSICIAN Family Medicine
DX: R79.89 Other specified abnormal findings of blood chemistry (principal); I48.91 Unspecified atrial fibrillation; I11.0 Hypertensive heart disease with heart failure; I50.9 Heart failure, unspecified; E78.00 Pure hypercholesterolemia, unspecified; E11.9 Type 2 diabetes mellitus without complications; G47.30 Sleep apnea, unspecified; Z79.01 Long term (current) use of anticoagulants; Z87.891 Personal history of nicotine dependence
CPT/HCPCS: 99284; 71275; 80048; 83880; 85025; 85610; 85730; Q9967

== ENCOUNTER 2023-08-05 00:30 | Emergency (ER) | payer OTHER, SELFPAY ==
[2023-08-05 00:35] VITALS: BP 118/50
[2023-08-05 00:45] VITALS: BP 130/63
[2023-08-05 01:00] VITALS: BP 146/55
[2023-08-05 01:02] VITALS: BP 146/55; BMI 32.9
[2023-08-05 01:21] LABS: % Basophils 0.5 % (0-2); % Eosinophils 1.4 % (0-6); % Immature Granulocytes 0.2 % (0-0.5); % Lymphocytes 14.5 % (20.5-51.1); % Monocytes 11.4 % (1.7-9.3); Absolute Eosinophils 0.1 10^3/uL (0-0.7); Absolute Lymphocytes 1.3 10^3/uL (1.2-3.4); Absolute Neutrophils 6.3 10^3/uL (1.4-6.5); Hematocrit 30.3 % (39.0-52.0); Hemoglobin 9.8 g/dL (13.0-18.0); Mean Corp Hgb Conc. 32.3 g/dL (33.0-37.0); Mean Corpuscular Volume 83.5 fL (80.0-94.0); Mean Platelet Volume 8.4 fL (7.4-10.4); Nucleated Red Blood Cells % 0 % (-); Platelet Count 325 10^3/uL (130-400); Red Blood Cell Count 3.63 10^6/uL (4.70-6.10); Red Cell Dist. Width 15.9 % (11.5-14.5); White Blood Cell Count 8.8 10^3/uL (4.8-10.8)
[2023-08-05] MEDS: DUONEB 3 ML INH (01:24)
[2023-08-05 01:35] LABS: ALT (SGPT) 16 U/L (0-50); AST (SGOT) 24 U/L (17-59); Albumin 3.9 g/dl (3.5-5.0); Alkaline Phosphatase 72 U/L (38-126); Blood Urea Nitrogen 25 mg/dl (9-20); Calcium 8.9 mg/dl (8.4-10.2); Carbon Dioxide 28 mmol/L (22-30); Chloride 92 mmol/L (98-107); Estimated Creatinine Clearance 71 ml/min; Glucose 89 mg/dl (70-99); Potassium 4.2 mmol/L (3.5-5.1); Sodium 127 mmol/L (135-145); Total Bilirubin 0.5 mg/dl (0.2-1.3); Total Protein 8.1 g/dl (6.3-8.2); eGFR > 60.00
[2023-08-05 01:37] LABS: Lactic Acid 1.6 mmol/L (0.7-2.0)
[2023-08-05 01:43] LABS: COVID-19 Antigen Negative (Negative)
[2023-08-05 01:46] LABS: NT-proBNP 228 pg/ml; Troponin I < 0.012 ng/ml
[2023-08-05 02:00] VITALS: BP 140/58
[2023-08-05] MEDS: TYLENOL 650 MG PO (02:18)
--- NOTE | 2023-08-05 02:18 | ED.GENMED ---
History of Present Illness
General
Chief Complaint: Cold/Flu/URI Symptoms
Time Seen by Provider: 08/05/23 00:46
Travel History
Have you had any contact with someone who has COVID-19?: No
Do you have any symptoms of coronavirus? Fever > 100 degrees, chills, cough, shortness of breath, sore throat, loss of taste or smell, muscle aches, or headache?: No
History of Present Illness
History of Present Illness:
8-year-old male presents emergency room complaining of cough, congestion and sore throat.
Past History
Past History
ED Past Medical History: Asthma, CHF, COPD, HTN, Hypercholesterolemia, NIDDM and Other (Dyspnea, sleep apnea, pulmonary hypertension)
ED Past Surgical History: Cardiac (Cardiac catheterization which showed normal coronaries, but mild pulmonary hypertension) and Other (Trigger finger surgery)
Social History
Tobacco: Former smoker
Alcohol: None
Drug: None
Personal:
Living: with family
Employment: Retired
Family History
Family History: Other (daughter has severe trigeminal neuralgia)
Phy Exam
Physical Exam
Physical Exam:
Physical Exam
General: no apparent distress, not acutely ill
Neck: supple. no meningeal signs. normal posterior pharynx
Heart: s1/s2 regular rate and rhythm, no murmur. equal radial
pulses.
HEENT: Pupils equal round reactive to light, EOMI
Lungs: no acute respiratory distress. Left-sided wheeze
Abdomen: normal bowel sounds. not tender. no CVAT
Neuro: alert and oriented. no focal neurological deficits cranial nerves II through XII intact
Skin: no rash
Psychiatric: well kept. interactive and cooperative
Extremities: no edema. no calf tenderness. negative homans. good distal pulses
Course
Orders/Labs/Results
Orders:
Orders
08/05/23 00:57
Cardiac Monitoring- Treatment ONCE
IV Insert/Care/Rem.- Treatment PRN
Ipratropium/Albuterol Sulfate [Duoneb] 3 ml INH R NOW STA
Pulse Ox/cont/shift [RESP] Stat
Quantity: 1
08/05/23 00:58
Electrocardiogram (*1) Stat
Reason for Study: Other
Other Reason for Exam: pneumonia
EKG- Treatment ONCE
CR Chest - 2 Views Urgent
Comment:
Reason For Exam: short of breath, cough
08/05/23 01:06
COVID-19 Antigen Urgent
Source: Nasal Swab
Complete Blood Count/With Diff Urgent
Comprehensive Metabolic Panel Urgent
Lactic Acid Q4H
Comment: CANCEL 2nd LACTIC ACID IF 1st LACTIC ACID IS LESS THAN 2
NT-proBNP Urgent
Troponin I Urgent
Blood Culture Q30M
JENNIFER Source: Blood/Venous
Specimen Description:
Blood Culture Q30M
JENNIFER Source: Blood/Venous
Specimen Description:
Influenza A+B Rapid Molecular Urgent
JENNIFER Source: Nasal Swab
Specimen Description:
08/05/23 02:03
Acetaminophen [Tylenol] 650 mg PO NOW STA
Abnormal Lab Results
08/05/23
01:06
RBC 3.63 L 10^6/uL
(4.70-6.10)
Hgb 9.8 L g/dL
(13.0-18.0)
Hct 30.3 L %
(39.0-52.0)
MCHC 32.3 L g/dL
(33.0-37.0)
RDW 15.9 H %
(11.5-14.5)
Absolute Monos (auto) 1.0 H 10^3/uL
(0.1-0.6)
Lymphocytes % 14.5 L %
(20.5-51.1)
Monocytes % 11.4 H %
(1.7-9.3)
Sodium 127 L mmol/L
(135-145)
Chloride 92 L mmol/L
(98-107)
BUN 25 H mg/dl
(9-20)
08/05/23 01:06
08/05/23 01:06
Vital Signs
Initial and Last Documented VS:
Initial Vital Signs
Temp Pulse Resp BP Pulse Ox
98.2 F 84 26 118/50 82
08/05/23 00:35 08/05/23 00:35 08/05/23 00:35 08/05/23 00:35 08/05/23 00:35
Last Documented Vital Signs
Temp Pulse Resp BP Pulse Ox
98.2 F 79 22 146/55 97
08/05/23 00:35 08/05/23 01:02 08/05/23 01:02 08/05/23 01:02 08/05/23 01:02
MDM/Problems Addressed
Differential Diagnosis Includes:
Pneumonia, CHF, bronchitis, asthma exacerbation
MDM/Problems Addressed:
82-year-old male with bronchitis and URI. Will treat with albuterol. No prednisone as he had recent knee surgery.
Chronic conditions affecting care: Asthma and Other (Recent knee surgery)
Acute Exacerbation and/or Progression of Chronic Illness: Asthma
*Radiology
Radiology exam reviewed: preliminary read by ED provider (Chest x-ray no acute findings, bilateral atelectasis)
*Pulse Oximetry
Patient hypoxic: no
*EKG
Interpreted by ED Provider?: Yes
EKG Intrepretation Date: 08/05/23
EKG Intrepretation Time: 01:12
Interpretation: abnormal
Comparison EKG: no comparison EKG present
Heart Rate: 77
Rate: normal
Rhythm: sinus
[place]: normal axis
Interval: normal interval
QRS Pattern: normal QRS
Ischemia: no ischemia
*Elevators Inspector Interpretation
Rate: normal
Interpretation: normal
Heart Rate: 82
Rhythm: sinus
*Critical Care Note
Total Time (30-74mins, 75-104mins- exclusive of procedures): Not Applicable
Data Reviewed
Review of Other/Old Records Reveals: Radiology Studies (Recent CT chest shows atelectasis, left-sided nodule, no other findings)
Patient Management
Social determinants of health affecting care: Living situation
Escalation/DeEscalation of care consider admission/obs:
Admit not indicated
ED Attending Note
-
Portions of this chart may have been created with voice recognition software.� Occasional wrong word or��sound alike� substitutions may have occurred due to the inherent limitations of voice recognition software.
Discharge Plan
Departure
Patient Disposition: Home (Routine Discharge)
Date of Disposition: 08/05/23
Time of Disposition: 02:20
Patient with high blood pressure during this ER visit?: Yes
Condition: Good
Discharge Problem:
Acute bronchitis
Instructions: Asthma, Adult (DC), Acute Bronchitis, Adult (DC)
Prescriptions:
New
albuterol sulfate [ProAir HFA] 90 mcg/actuation HFA aerosol inhaler
2 puff inhalation Q4HPRN PRN (Reason: shortness of breath) Qty: 8.5 0RF
No Action
fluticasone propionate 1 SPRAY spray,suspension
2 spry intranasal BID
atorvastatin 10 MG tablet
20 mg PO HS
metformin 1,000 MG tablet
1,000 mg PO BID
esomeprazole magnesium [Nexium] 40 MG capsule,delayed release(DR/EC)
40 mg PO HS
albuterol sulfate 1 PUFF HFA aerosol inhaler
2 puff inhalation R Q4HPRN PRN (Reason: sob)
metoprolol succinate 25 MG tablet extended release 24 hr
25 mg PO DAILY Qty: 30 0RF
spironolactone 25 mg tablet
12.5 mg PO DAILY
glimepiride 2 mg tablet
2 mg PO DAILY
bumetanide 1 mg tablet
1 mg PO DAILY
dutasteride 0.5 mg capsule
0.5 mg PO DAILY
Jardiance 10 mg tablet
10 mg PO DAILY
Eliquis 5 mg tablet
5 mg PO BID
Hold Instructions: Resume on 07/28/23. Till cleared by Ortho Dr Chu
acetaminophen 325 mg Tablet
650 mg PO Q6HPRN PRN (Reason: mild pain/ fever>100.5F) Qty: 1 0RF
aspirin 325 mg tablet
325 mg PO DAILY Qty: 10 0RF
torsemide 10 mg Tablet
10 mg PO DAILY
tamsulosin 0.4 MG capsule
0.4 mg PO BID
oxycodone 5 mg tablet
5 mg PO Q6H PRN (Reason: severe Pain)
Referrals:
Minnie Arreguin DO [Family Provider] - Call in 1-3 days for appt
Interventions
Interventions:
*Risk Screen - Suicide Last Done: 08/05/23 00:35
*General Assessment Last Done: 08/05/23 01:02
*Neglect/Abuse Screening Last Done: 08/05/23 00:35
ED- Fall Risk Assessment Last Done: 08/05/23 01:02
*ED COVID-19 Vaccine History Last Done: 08/05/23 01:02
Discharge Date and Time
Print Language: HUNGARIAN
== END 2023-08-05 03:15 | disposition home or self-care (01) ==
LOC: EMR 00:30
PROVIDERS: EMERGENCY PHYSICIAN Emergency Medicine; FAMILY PHYSICIAN Family Medicine
DX: J20.9 Acute bronchitis, unspecified (principal); I11.0 Hypertensive heart disease with heart failure; I50.9 Heart failure, unspecified; J45.901 Unspecified asthma with (acute) exacerbation; Z87.891 Personal history of nicotine dependence; Z11.52 Encounter for screening for COVID-19
CPT/HCPCS: 99285; 94640; 71046; 80053; 83605; 83880; 84484; 85025; 87040; 87502; 87811; 93005

== ENCOUNTER 2023-09-11 12:06 | Outpatient (RCR) | payer OTHER, SELFPAY | END 2023-09-11 23:59 | disposition home or self-care (01) | LOC: RPT 12:06 | PROVIDERS: ATTENDING PHYSICIAN Orthopaedic Surgery; FAMILY PHYSICIAN Family Medicine | DX: Z47.1 Aftercare following joint replacement surgery (principal); Z96.652 Presence of left artificial knee joint; Z73.6 Limitation of activities due to disability; R26.2 Difficulty in walking, not elsewhere classified | CPT/HCPCS: 97010; 97110; 97140; 97161; 97530 ==

== ENCOUNTER 2023-10-10 11:24 | Outpatient (RCR) | payer OTHER, SELFPAY | END 2023-10-10 23:59 | disposition home or self-care (01) | LOC: RPT 11:24 | PROVIDERS: ATTENDING PHYSICIAN Orthopaedic Surgery; FAMILY PHYSICIAN Family Medicine | DX: Z47.1 Aftercare following joint replacement surgery (principal); Z73.6 Limitation of activities due to disability; R26.2 Difficulty in walking, not elsewhere classified; M62.81 Muscle weakness (generalized); M25.562 Pain in left knee; Z96.652 Presence of left artificial knee joint | CPT/HCPCS: 97010; 97110; 97112; 97530 ==

== ENCOUNTER → 2023-11-18 09:24 | Outpatient (REF) | payer OTHER, SELFPAY ==
[2023-11-18 12:18] LABS: % Basophils 0.7 % (0-2); % Eosinophils 3.1 % (0-6); % Immature Granulocytes 0.2 % (0-0.5); % Lymphocytes 29.4 % (20.5-51.1); % Monocytes 10.8 % (1.7-9.3); % Neutrophils 55.8 % (42.2-75.2); Absolute Eosinophils 0.2 10^3/uL (0-0.7); Absolute Lymphocytes 1.7 10^3/uL (1.2-3.4); Absolute Monocytes 0.6 10^3/uL (0.1-0.6); Absolute Neutrophils 3.2 10^3/uL (1.4-6.5); Hematocrit 32.6 % (39.0-52.0); Hemoglobin 10.5 g/dL (13.0-18.0); Mean Corp Hgb Conc. 32.2 g/dL (33.0-37.0); Mean Corpuscular Hgb 26.6 pg (27.0-31.0); Mean Corpuscular Volume 82.5 fL (80.0-94.0); Mean Platelet Volume 9.8 fL (7.4-10.4); Nucleated Red Blood Cells % 0 % (-); Platelet Count 266 10^3/uL (130-400); Red Blood Cell Count 3.95 10^6/uL (4.70-6.10); Red Cell Dist. Width 15.9 % (11.5-14.5); White Blood Cell Count 5.7 10^3/uL (4.8-10.8)
[2023-11-18 14:48] LABS: ALT (SGPT) 14 U/L (0-50); AST (SGOT) 21 U/L (17-59); Alkaline Phosphatase 70 U/L (38-126); Blood Urea Nitrogen 24 mg/dl (9-20); Calcium 8.8 mg/dl (8.4-10.2); Carbon Dioxide 29 mmol/L (22-30); Chloride 99 mmol/L (98-107); Glucose 95 mg/dl (70-99); Potassium 4.2 mmol/L (3.5-5.1); Sodium 137 mmol/L (135-145); Total Bilirubin 0.3 mg/dl (0.2-1.3); Total Protein 7.4 g/dl (6.3-8.2); eGFR > 60.00
== END ==
LOC: HWLAB 09:24
PROVIDERS: ATTENDING PHYSICIAN Internal Medicine Cardiovascular Disease; FAMILY PHYSICIAN Family Medicine
DX: I10 Essential (primary) hypertension (principal)
CPT/HCPCS: 36415; 80053; 85025

== ENCOUNTER 2023-12-11 20:26 | Emergency (ER) | payer OTHER, SELFPAY ==
[2023-12-11 20:28] VITALS: BP 139/60
[2023-12-11] MEDS: TYLENOL 1000 MG PO (20:36)
[2023-12-11 20:37] VITALS: BMI 33.0
--- NOTE | 2023-12-11 21:05 | ED.GENMED ---
History of Present Illness
General
Chief Complaint: Cold/Flu/URI Symptoms
Source: patient
Exam Limitations: none
Time Seen by Provider: 12/11/23 20:47
History of Present Illness
History of Present Illness:
This is a 83 year old male that comes in with c/o not being able to get medication at any Pharmacy. Patient states that he tested positive yesterday for COVID. States that he just has o energy. States that occasionally it is hard to breath. States
that he called the PCP and he was told to get Paxlovie. Patient states that he called 5 pharmacy's and no one has it. States that he has had a fever, headache, diarrhea, and urinary frequency. Denies any chills, chest pain, abd pain, nausea,
vomiting, dizziness, urinary burning.
Past History
Past History
ED Past Medical History: Arrthythmia (Atrial fib), Asthma, CHF, COPD, GERD, HTN, Hypercholesterolemia, NIDDM and Other (Dyspnea, sleep apnea, pulmonary hypertension, UTI)
ED Past Surgical History: Cardiac (Cardiac catheterization which showed normal coronaries, but mild pulmonary hypertension), Orthopedic ([place] knee surgery. Left total knee replacement) and Other (Trigger finger surgery, cataracts, )
Social History
Tobacco: Former smoker
Alcohol: None
Drug: None
Personal:
Living: with family
Employment: Retired
Family History
Family History: Other (daughter has severe trigeminal neuralgia)
Review of Systems
Review of Systems
All Other Systems: ROS reviewed and negative except as documented in HPI and ROS
Constitutional: Reports fever; Denies chills
EENT: Reports no symptoms
Respiratory: Reports cough and trouble breathing (occasional)
Cardiac: Reports no symptoms; Denies chest pain
ABD/GI: Reports diarrhea; Denies abdominal pain, nausea or vomiting
: Reports frequency; Denies dysuria or urgency
Musculoskeletal: Reports no symptoms
Skin: Reports no symptoms
Neurological: Reports headache; Denies dizzy
Psychiatric: Reports no symptoms
Phy Exam
General Physical Exam
General Presentation: well appearing and no apparent distress
General age: appears stated age
General Skin: warm and dry
General Habitus: elderly
General Mental: alert
General Hydration: appears well hydrated
ENT Exam
ENT Exam: TM's normal, pharynx normal and neck supple
Eye Exam
Eye Exam: EOMI
Cardiovascular Exam
Cardiovascular Exam: regular rate/rhythm, no edema and normal peripheral pulses
Pulmonary Exam
Pulmonary Exam: lungs clear, no respiratory distress, no rales, chest non tender, no crackles, no rhonchi and no wheezing
Gastrointestinal Exam
Gastrointestinal Exam: normal bowel sounds, non tender, soft, no organomegaly, no pulsatile mass and non distended
Musculoskeletal Exam
Musculoskeletal Exam: full ROM
Skin Exam
Skin Exam: normal color, warm/dry, no rash and no petechia
Psychiatric Exam
Psychiatric Exam: normal mood/affect
Course
Orders/Labs/Results
Orders:
Orders
12/11/23 20:34
Acetaminophen [Tylenol] 1,000 mg PO NOW STA
12/11/23 20:58
CR Chest - 2 Views Urgent
Comment: COVID Positive
Reason For Exam: SOB
12/11/23 21:36
Complete Blood Count/With Diff Urgent
Comprehensive Metabolic Panel Urgent
12/11/23 22:53
Urinalysis Reflex To Culture Urgent
Date Specimen was Collected: 12/11/23
Time Specimen was Collected: 22:51
Abnormal Lab Results
12/11/23 12/11/23
21:36 22:53
RBC 4.18 L 10^6/uL
(4.70-6.10)
Hgb 11.1 L g/dL
(13.0-18.0)
Hct 32.3 L %
(39.0-52.0)
MCV 77.3 L fL
(80.0-94.0)
MCH 26.6 L pg
(27.0-31.0)
RDW 15.8 H %
(11.5-14.5)
Absolute Lymphs (auto) 0.8 L 10^3/uL
(1.2-3.4)
Absolute Monos (auto) 1.0 H 10^3/uL
(0.1-0.6)
Lymphocytes % 11.7 L %
(20.5-51.1)
Monocytes % 14.9 H %
(1.7-9.3)
Sodium 132 L mmol/L
(135-145)
Chloride 95 L mmol/L
(98-107)
BUN 25 H mg/dl
(9-20)
Glucose 100 H mg/dl
(70-99)
Urine Glucose 3+ A
(Negative)
12/11/23 21:36
12/11/23 21:36
H/H slightly low. Anemia, Sodium slightly low. Dehydration. Glucose nonfasting. Urine negative for infection.
Vital Signs
Initial and Last Documented VS:
Initial Vital Signs
Temp Pulse Resp BP Pulse Ox
101.2 F H 72 22 139/60 97
12/11/23 20:28 12/11/23 20:28 12/11/23 20:28 12/11/23 20:28 12/11/23 20:28
Last Documented Vital Signs
Temp Pulse Resp BP Pulse Ox
98.7 F 70 18 136/69 97
12/11/23 21:38 12/11/23 21:38 12/11/23 21:38 12/11/23 21:38 12/11/23 21:38
MDM/Problems Addressed
Differential Diagnosis Includes:
COVID,
MDM/Problems Addressed:
This is a 83 year old male that comes in with c/o COVID and not being able to get medication. States that he tested positive yesterday for COVID and he called the PCP. States that she ordered Paxlovid and he called 5 Pharmacy's and no one has this.
Patient was told to come to the ER.
will check labs chest x-ray.
Back into see patient. Explained that his blood work shows that he is a little anemic and his sodium is slightly low. Patient to eat some canned food or boxed food that is higher in sodium. Patient to increased his water intake to 8-8oz glasses
daily. Patient to monitor his pulse ox at home. Explained that we do not dispense medication and that most people have complaints that after taking Paxlovid they felt worse. Patient to return with any concerns.
Chronic conditions affecting care: COPD, Asthma and Other (Sleep apnea)
Acute Exacerbation and/or Progression of Chronic Illness: COPD, Asthma and Other (sleep apnea)
*Radiology
Radiology exam reviewed: radiology read reviewed (Bibasilar atelectasis/scarring, similar to prior. No new focal consolidation. )
*Pulse Oximetry
Patient hypoxic: no
*EKG
Interpreted by ED Provider?: NA
Rate: EKG- N/A
*Commissary Production Supervisor Interpretation
Rate: Commissary Production Supervisor- N/A
*Critical Care Note
Total Time (30-74mins, 75-104mins- exclusive of procedures): Not Applicable
ED Attending Note
-
Portions of this chart may have been created with voice recognition software.� Occasional wrong word or��sound alike� substitutions may have occurred due to the inherent limitations of voice recognition software.
Discharge Plan
Departure
Patient Disposition: Home (Routine Discharge)
Date of Disposition: 12/11/23
Time of Disposition: 23:08
Patient with high blood pressure during this ER visit?: Yes
Condition: Good
Covid-19: Not Applicable
Discharge Problem:
COVID
Instructions: COVID-19 ED, BLOOD PRESSURE
Prescriptions:
No Action
fluticasone propionate 1 SPRAY spray,suspension
2 spry intranasal BID
atorvastatin 10 MG tablet
20 mg PO HS
metformin 1,000 MG tablet
1,000 mg PO BID
esomeprazole magnesium [Nexium] 40 MG capsule,delayed release(DR/EC)
40 mg PO HS
albuterol sulfate 1 PUFF HFA aerosol inhaler
2 puff inhalation R Q4HPRN PRN (Reason: sob)
metoprolol succinate 25 MG tablet extended release 24 hr
25 mg PO DAILY Qty: 30 0RF
spironolactone 25 mg tablet
12.5 mg PO DAILY
glimepiride 2 mg tablet
2 mg PO DAILY
bumetanide 1 mg tablet
1 mg PO DAILY
dutasteride 0.5 mg capsule
0.5 mg PO DAILY
Jardiance 10 mg tablet
10 mg PO DAILY
Eliquis 5 mg tablet
5 mg PO BID
acetaminophen 325 mg Tablet
650 mg PO Q6HPRN PRN (Reason: mild pain/ fever>100.5F) Qty: 1 0RF
aspirin 325 mg tablet
325 mg PO DAILY Qty: 10 0RF
torsemide 10 mg Tablet
10 mg PO DAILY
tamsulosin 0.4 MG capsule
0.4 mg PO BID
oxycodone 5 mg tablet
5 mg PO Q6H PRN (Reason: severe Pain)
albuterol sulfate [ProAir HFA] 90 mcg/actuation HFA aerosol inhaler
2 puff inhalation Q4HPRN PRN (Reason: shortness of breath) Qty: 8.5 0RF
Referrals:
Minnie Arreguin DO [Family Provider] - Call in 1-3 days for appt
Activity Restrictions/Additional Instructions:
As discussed, your blood work shows that your sodium is a little low. Please try some canned soup or boxed food as they are high in sodium. You Chest x-ray is negative for any acute process. We do not dispense medication from the emergency room.
COVID at this point is more like the common cold. Please increase your water intake to 8-8oz glasses daily. Tylenol for any fever. Follow up with the family doctor for recheck. Continue to monitor your pulse ox and if this is 90% or below you need
to return to the emergency room. IF YOU HAVE ANY OTHER CONCERNS PLEASE RETURN TO THE EMERGENCY ROOM.
Interventions
Interventions:
*General Assessment Last Done: 12/11/23 20:28
*Neglect/Abuse Screening Last Done: 12/11/23 20:28
ED- Fall Risk Assessment Last Done: 12/11/23 20:28
*ED COVID-19 Vaccine History Last Done: 12/11/23 20:28
ED- Pulmonary Assessment Last Done: 12/11/23 21:49
Discharge Date and Time
Print Language: POLISH
[2023-12-11 21:38] VITALS: BP 136/69
[2023-12-11 21:44] LABS: % Basophils 0.3 % (0-2); % Eosinophils 0.3 % (0-6); % Immature Granulocytes 0.5 % (0-0.5); % Lymphocytes 11.7 % (20.5-51.1); % Monocytes 14.9 % (1.7-9.3); % Neutrophils 72.3 % (42.2-75.2); Absolute Lymphocytes 0.8 10^3/uL (1.2-3.4); Absolute Neutrophils 4.7 10^3/uL (1.4-6.5); Hematocrit 32.3 % (39.0-52.0); Hemoglobin 11.1 g/dL (13.0-18.0); Mean Corp Hgb Conc. 34.4 g/dL (33.0-37.0); Mean Corpuscular Hgb 26.6 pg (27.0-31.0); Mean Corpuscular Volume 77.3 fL (80.0-94.0); Mean Platelet Volume 8.9 fL (7.4-10.4); Nucleated Red Blood Cells % 0 % (-); Platelet Count 208 10^3/uL (130-400); Red Blood Cell Count 4.18 10^6/uL (4.70-6.10); Red Cell Dist. Width 15.8 % (11.5-14.5); White Blood Cell Count 6.5 10^3/uL (4.8-10.8)
[2023-12-11 22:03] LABS: ALT (SGPT) 19 U/L (0-50); AST (SGOT) 27 U/L (17-59); Albumin 4.1 g/dl (3.5-5.0); Alkaline Phosphatase 74 U/L (38-126); Blood Urea Nitrogen 25 mg/dl (9-20); Carbon Dioxide 27 mmol/L (22-30); Chloride 95 mmol/L (98-107); Estimated Creatinine Clearance 75 ml/min; Glucose 100 mg/dl (70-99); Sodium 132 mmol/L (135-145); Total Bilirubin 0.5 mg/dl (0.2-1.3); Total Protein 7.6 g/dl (6.3-8.2); eGFR > 60.00
[2023-12-11 23:01] LABS: Urine Albumin Negative (Neg - Trace); Urine Bilirubin Negative (Negative); Urine Character Clear (Clear); Urine Color Yellow; Urine Glucose 3+ (Negative); Urine Ketone Negative (Negative); Urine Leukocyte Negative (Negative); Urine Nitrite Negative (Negative); Urine Occult Blood Negative (Negative); Urine Specific Gravity 1.015 (<1.030); Urine Urobilinogen Negative (Neg - 1+)
[2023-12-11 23:38] VITALS: BP 132/70
== END 2023-12-11 23:40 | disposition home or self-care (01) ==
LOC: EMR 20:26
PROVIDERS: Clinical Nurse Specialist Family Health; EMERGENCY PHYSICIAN Emergency Medicine; FAMILY PHYSICIAN Family Medicine
DX: U07.1 COVID-19 (principal); I11.0 Hypertensive heart disease with heart failure; I50.9 Heart failure, unspecified; E11.9 Type 2 diabetes mellitus without complications; E78.00 Pure hypercholesterolemia, unspecified; Z79.899 Other long term (current) drug therapy; Z79.84 Long term (current) use of oral hypoglycemic drugs; Z79.82 Long term (current) use of aspirin; D64.9 Anemia, unspecified; E86.0 Dehydration; J44.89 Other specified chronic obstructive pulmonary disease; G47.30 Sleep apnea, unspecified; Z87.891 Personal history of nicotine dependence
CPT/HCPCS: 99284; 71046; 80053; 81003; 85025

== ENCOUNTER 2024-06-22 12:22 | Emergency (ER) | payer OTHER, SELFPAY ==
[2024-06-22 12:26] VITALS: BP 153/60
[2024-06-22 13:46] VITALS: BP 152/58
--- NOTE | 2024-06-22 14:22 | ED.GENMED ---
History of Present Illness
<ZULY Bazan - Last Filed: 06/23/24 09:51>
General
Chief Complaint: Musculo-Skeletal Complaint
Source: patient
Exam Limitations: none
Time Seen by Provider: 06/22/24 13:44
Nursing documentation reviewed up to this point in time: agreed with
History of Present Illness
History of Present Illness:
Patient is a 83-year-old male who is on Eliquis for A-fib history of hypertension hyperlipidemia CHF presents to the ER for evaluation. Yesterday he was getting his granddaughter on the bus and tripped landing on his chest he also hit his left
face. Starting last night he had pain in his left chest and he feels that it radiates to his left back. He also had dry heaving and mild headache. He did take Tylenol vomiting this morning which did not relieve his symptoms. He does have some
discomfort of his left shoulder and left hip but mainly presented here because of pain to the left chest. It is mainly constant worse at times with movement.
He denies any abd pain
Past History
<ZULY Bazan - Last Filed: 06/23/24 09:51>
Past History
ED Past Medical History: Arrthythmia (Atrial fib), Asthma, CHF, COPD, GERD, HTN, Hypercholesterolemia, NIDDM and Other (Dyspnea, sleep apnea, pulmonary hypertension, UTI)
ED Past Surgical History: Cardiac (Cardiac catheterization which showed normal coronaries, but mild pulmonary hypertension), Orthopedic (Agapito knee surgery. Left total knee replacement) and Other (Trigger finger surgery, cataracts, )
Social History
Tobacco: Former smoker
Alcohol: None
Drug: None
Personal:
Living: with family
Employment: Retired
Family History
Family History: Other (daughter has severe trigeminal neuralgia)
Phy Exam
<ZULY Bazan - Last Filed: 06/23/24 09:51>
General Physical Exam
General Presentation: no apparent distress
General age: appears stated age
General Skin: warm and dry
General Habitus: elderly
General Mental: alert
General Hydration: appears well hydrated
Cardiovascular Exam
Cardiovascular Exam: regular rate/rhythm, no murmur and normal peripheral pulses
Pulmonary Exam
Pulmonary Exam: lungs clear, no respiratory distress and other (mild tenderness left anterior chest ; no ecchymosis no crepitus)
Gastrointestinal Exam
Gastrointestinal Exam: normal bowel sounds, non tender and soft
Musculoskeletal Exam
Musculoskeletal Exam: full ROM and other (Full range of motion of all extremities obvious head injury no bony cervical spine tenderness of thoracic tenderness)
Skin Exam
Skin Exam: normal color and warm/dry
Psychiatric Exam
Psychiatric Exam: normal mood/affect
Course
<ZULY Bazan - Last Filed: 06/23/24 09:51>
Orders/Labs/Results
Orders:
Orders
06/22/24 12:32
CR Hip - LT w/wo Pel 2-3 Vw* Urgent
Comment:
Reason For Exam: pain s/p fall
Include a pelvis x-ray?: Yes
CR Shoulder, Trauma - Left Urgent
Comment:
Reason For Exam: pain s/p fall
06/22/24 14:36
CT Head W/o Iv Contrast Urgent
Comment:
Reason For Exam: trauma
06/22/24 14:37
Electrocardiogram (*1) Stat
Reason for Study: Other
Other Reason for Exam: chest pain
Cardiac Monitoring- Treatment ONCE
EKG- Treatment ONCE
06/22/24 14:40
Cardiac Monitoring- Treatment ONCE
06/22/24 14:41
CT Cervical Spine W/o Iv Contr Urgent
Comment:
Reason For Exam: trauma
06/22/24 14:44
Complete Blood Count/With Diff Urgent
Comprehensive Metabolic Panel Urgent
Troponin I Urgent
06/22/24 14:50
Diphenhydramine [Benadryl] 50 mg IV NOW STA
Hydrocortisone Sod Succinate [Solu-Cortef] 200 mg IV NOW STA
06/22/24 14:51
0.9% Sodium Chloride 1000 ml [Nss] 1,000 ml IV BOLUS
Morphine Sulfate 2 mg IV NOW STA
Ondansetron Injectable [Zofran] 4 mg IV NOW STA
06/22/24 14:56
Chest/Abd/Pelvis w Contrast CT [CT Chest/abd/pel W Iv Cont] Urgent
Comment:
Reason For Exam: trauma
Abnormal Lab Results
06/22/24
14:44
RBC 4.37 L 10^6/uL
(4.70-6.10)
Hgb 12.8 L g/dL
(13.0-18.0)
Hct 37.7 L %
(39.0-52.0)
Carbon Dioxide 31 H mmol/L
(22-30)
BUN 24 H mg/dl
(9-20)
06/22/24 14:44
06/22/24 14:44
Vital Signs
Initial and Last Documented VS:
Initial Vital Signs
Temp Pulse Resp BP Pulse Ox
97.6 F 55 18 153/60 97
06/22/24 12:26 06/22/24 12:26 06/22/24 12:26 06/22/24 12:26 06/22/24 12:26
Last Documented Vital Signs
Temp Pulse Resp BP Pulse Ox
97.6 F 60 18 135/75 95
06/22/24 12:26 06/22/24 18:24 06/22/24 18:24 06/22/24 18:24 06/22/24 18:24
Neurology Hospitalist consulted with Physician
Neurology Hospitalist consulted with physician?: Yes
Name of Physician Consulted: NO
<Christopher Jackman Jr., PA-C - Last Filed: 06/22/24 18:13>
Orders/Labs/Results
Orders:
Orders
06/22/24 12:32
CR Hip - LT w/wo Pel 2-3 Vw* Urgent
Comment:
Reason For Exam: pain s/p fall
Include a pelvis x-ray?: Yes
CR Shoulder, Trauma - Left Urgent
Comment:
Reason For Exam: pain s/p fall
06/22/24 14:36
CT Head W/o Iv Contrast Urgent
Comment:
Reason For Exam: trauma
06/22/24 14:37
Electrocardiogram (*1) Stat
Reason for Study: Other
Other Reason for Exam: chest pain
Cardiac Monitoring- Treatment ONCE
EKG- Treatment ONCE
06/22/24 14:40
Cardiac Monitoring- Treatment ONCE
06/22/24 14:41
CT Cervical Spine W/o Iv Contr Urgent
Comment:
Reason For Exam: trauma
06/22/24 14:44
Complete Blood Count/With Diff Urgent
Comprehensive Metabolic Panel Urgent
Troponin I Urgent
06/22/24 14:50
Diphenhydramine [Benadryl] 50 mg IV NOW STA
Hydrocortisone Sod Succinate [Solu-Cortef] 200 mg IV NOW STA
06/22/24 14:51
0.9% Sodium Chloride 1000 ml [Nss] 1,000 ml IV BOLUS
Morphine Sulfate 2 mg IV NOW STA
Ondansetron Injectable [Zofran] 4 mg IV NOW STA
06/22/24 14:56
Chest/Abd/Pelvis w Contrast CT [CT Chest/abd/pel W Iv Cont] Urgent
Comment:
Reason For Exam: trauma
Abnormal Lab Results
06/22/24
14:44
RBC 4.37 L 10^6/uL
(4.70-6.10)
Hgb 12.8 L g/dL
(13.0-18.0)
Hct 37.7 L %
(39.0-52.0)
Carbon Dioxide 31 H mmol/L
(22-30)
BUN 24 H mg/dl
(9-20)
06/22/24 14:44
06/22/24 14:44
Vital Signs
Initial and Last Documented VS:
Initial Vital Signs
Temp Pulse Resp BP Pulse Ox
97.6 F 55 18 153/60 97
06/22/24 12:26 06/22/24 12:26 06/22/24 12:26 06/22/24 12:26 06/22/24 12:26
Last Documented Vital Signs
Temp Pulse Resp BP Pulse Ox
97.6 F 60 18 135/75 95
06/22/24 12:26 06/22/24 18:24 06/22/24 18:24 06/22/24 18:24 06/22/24 18:24
<ZULY Bazan - Last Filed: 06/23/24 09:51>
MDM/Problems Addressed
Differential Diagnosis Includes:
Not limited to contusion, pneumothorax, rib fracture, intra-abdominal injury acute traumatic chest injury
MDM/Problems Addressed:
Patient is an 83-year-old male on Eliquis presents for evaluation after injury. Patient reports yesterday he describes mechanical fall tripped over the curb hit his left face and his left chest. He complains of some mild headache and chest
discomfort on the left side that radiates to his back. On exam there is no obvious abnormality nontender but worse with position change he is on Eliquis. With trauma and thinners with pain will check troponin EKG and CAT scan. Care of patient
this time transferred to [facility] PAC.
<Christopher Jackman Jr., PA-C - Last Filed: 06/22/24 18:13>
*Critical Care Note
Total Time (30-74mins, 75-104mins- exclusive of procedures): Not Applicable
<Christopher Jackman Jr., PA-C - Last Filed: 06/22/24 18:13>
Update Note
Update Note:
Case signed out pending imaging and labs. Patient here in no distress. Patient had a slight drop in his pulse ox when he fell asleep after receiving morphine and Benadryl he does have a history of sleep apnea. Pulse ox is now normal now that he
is awake and sitting up during my reassessment. CT scan did not show any emergent findings that show a cyst of the pancreatic head which was described to the patient and he was advised for follow-up. Other incidental findings were also discussed
with the patient. He was advised for close outpatient follow-up return precautions were given.
ED Attending Note
<ZULY Bazan - Last Filed: 06/23/24 09:51>
-
Portions of this chart may have been created with voice recognition software.� Occasional wrong word or��sound alike� substitutions may have occurred due to the inherent limitations of voice recognition software.
Discharge Plan
Departure
Patient Disposition: Home (Routine Discharge)
Date of Disposition: 06/22/24
Time of Disposition: 18:11
Patient with high blood pressure during this ER visit?: No
Condition: Good
Covid-19: Not Applicable
Discharge Problem:
Fall, Pancreas cyst
Instructions: Preventing falls in adults
Prescriptions:
New
lidocaine [Aspercreme (lidocaine)] 4 % adhesive patch,medicated
1 patch topical Q24H PRN (Reason: Pain) Qty: 10 0RF
No Action
fluticasone propionate 1 SPRAY spray,suspension
2 spry intranasal BID
atorvastatin 10 MG tablet
20 mg PO HS
metformin 1,000 MG tablet
1,000 mg PO BID
esomeprazole magnesium [Nexium] 40 MG capsule,delayed release(DR/EC)
40 mg PO HS
albuterol sulfate 1 PUFF HFA aerosol inhaler
2 puff inhalation R Q4HPRN PRN (Reason: sob)
metoprolol succinate 25 MG tablet extended release 24 hr
25 mg PO DAILY Qty: 30 0RF
spironolactone 25 mg tablet
12.5 mg PO DAILY
glimepiride 2 mg tablet
2 mg PO DAILY
bumetanide 1 mg tablet
1 mg PO DAILY
dutasteride 0.5 mg capsule
0.5 mg PO DAILY
Jardiance 10 mg tablet
10 mg PO DAILY
Eliquis 5 mg tablet
5 mg PO BID
acetaminophen 325 mg Tablet
650 mg PO Q6HPRN PRN (Reason: mild pain/ fever>100.5F) Qty: 1 0RF
aspirin 325 mg tablet
325 mg PO DAILY Qty: 10 0RF
torsemide 10 mg Tablet
10 mg PO DAILY
tamsulosin 0.4 MG capsule
0.4 mg PO BID
oxycodone 5 mg tablet
5 mg PO Q6H PRN (Reason: severe Pain)
albuterol sulfate [ProAir HFA] 90 mcg/actuation HFA aerosol inhaler
2 puff inhalation Q4HPRN PRN (Reason: shortness of breath) Qty: 8.5 0RF
Referrals:
Minnie Arreguin DO [Family Provider] -
Activity Restrictions/Additional Instructions:
You came to the emergency department today after a fall. Here you have a reassuring assessment. You did have some incidental findings including a cyst of the pancreatic head. Please follow-up as an outpatient for this. Return for any worsening,
new or concerning symptoms.
Interventions
Interventions:
*Risk Screen - Suicide Last Done: 06/22/24 12:26
*General Assessment Last Done: 06/22/24 13:13
*Neglect/Abuse Screening Last Done: 06/22/24 12:26
*ED COVID-19 Vaccine History Last Done: 06/22/24 12:26
*Nursing Disposition Last Done: 06/22/24 18:24
ED-Musculoskeletal Assessment Last Done: 06/22/24 13:13
Discharge Date and Time
Discharge Date/Time: 06/22/24 18:25
Print Language: DIVEHI
[2024-06-22 15:20] LABS: % Basophils 0.3 % (0-2); % Eosinophils 1.4 % (0-6); % Immature Granulocytes 0.2 % (0-0.5); % Lymphocytes 22.5 % (20.5-51.1); % Monocytes 8.8 % (1.7-9.3); % Neutrophils 66.8 % (42.2-75.2); Absolute Eosinophils 0.1 10^3/uL (0-0.7); Absolute Lymphocytes 1.4 10^3/uL (1.2-3.4); Absolute Monocytes 0.6 10^3/uL (0.1-0.6); Absolute Neutrophils 4.3 10^3/uL (1.4-6.5); Hematocrit 37.7 % (39.0-52.0); Hemoglobin 12.8 g/dL (13.0-18.0); Mean Corpuscular Hgb 29.3 pg (27.0-31.0); Mean Corpuscular Volume 86.3 fL (80.0-94.0); Nucleated Red Blood Cells % 0 % (-); Platelet Count 216 10^3/uL (130-400); Red Blood Cell Count 4.37 10^6/uL (4.70-6.10); Red Cell Dist. Width 13.4 % (11.5-14.5); White Blood Cell Count 6.4 10^3/uL (4.8-10.8)
[2024-06-22] MEDS: SOLU-CORTEF 200 MG IV (15:27)
[2024-06-22] MEDS: BENADRYL 50 MG IV (15:27)
[2024-06-22] MEDS: NSS 1000 IV (15:27)
[2024-06-22] MEDS: MORPHINE SULFATE 2 MG IV (15:28)
[2024-06-22] MEDS: ZOFRAN 4 MG IV (15:28)
[2024-06-22 15:43] LABS: Troponin I < 0.012 ng/ml
[2024-06-22 15:44] LABS: ALT (SGPT) 18 U/L (0-50); AST (SGOT) 21 U/L (17-59); Albumin 4.1 g/dl (3.5-5.0); Alkaline Phosphatase 76 U/L (38-126); Blood Urea Nitrogen 24 mg/dl (9-20); Calcium 9.2 mg/dl (8.4-10.2); Carbon Dioxide 31 mmol/L (22-30); Chloride 100 mmol/L (98-107); Glucose 90 mg/dl (70-99); Potassium 4.2 mmol/L (3.5-5.1); Sodium 138 mmol/L (135-145); Total Bilirubin 0.5 mg/dl (0.2-1.3); Total Protein 7.7 g/dl (6.3-8.2); eGFR > 60.00
[2024-06-22 16:22] VITALS: BP 145/78
[2024-06-22 18:24] VITALS: BP 135/75
== END 2024-06-22 18:25 | disposition home or self-care (01) ==
LOC: EMR 12:22
PROVIDERS: Nurse Practitioner; EMERGENCY PHYSICIAN Emergency Medicine; FAMILY PHYSICIAN Family Medicine
DX: R07.89 Other chest pain (principal); R51.9 Headache, unspecified; M54.9 Dorsalgia, unspecified; K86.2 Cyst of pancreas; W01.0XXA Fall on same level from slipping, tripping and stumbling without subsequent striking against object, initial encounter; I11.0 Hypertensive heart disease with heart failure; I50.9 Heart failure, unspecified; G47.30 Sleep apnea, unspecified; Z87.891 Personal history of nicotine dependence
CPT/HCPCS: 99285; 96374; 96375 ×3; 96361; 70450; 71260; 72125; 73030; 73502; 74177; 80053; 84484; 85025; 93005; Q9967

== ENCOUNTER → 2024-07-08 07:29 | Outpatient (REF) | payer OTHER, SELFPAY | LOC: MRI 07:29 | PROVIDERS: ATTENDING PHYSICIAN Family Medicine; REFERRING PHYSICIAN Internal Medicine Critical Care Medicine | DX: K86.2 Cyst of pancreas (principal) | CPT/HCPCS: 74183; A9575 ==

== ENCOUNTER → 2024-07-26 09:10 | Outpatient (REF) | payer OTHER, SELFPAY | LOC: HWRAD 09:10 | PROVIDERS: ATTENDING PHYSICIAN Family Medicine | DX: E04.1 Nontoxic single thyroid nodule (principal) | CPT/HCPCS: 76536 ==

== ENCOUNTER → 2024-08-25 07:35 | Outpatient (REF) | payer OTHER, SELFPAY ==
[2024-08-25 07:55] VITALS: BP 130/63; BP_SYST 55
== END ==
LOC: RADI 07:35
PROVIDERS: ATTENDING PHYSICIAN Otolaryngology; FAMILY PHYSICIAN Family Medicine
DX: E04.1 Nontoxic single thyroid nodule (principal)
CPT/HCPCS: 88173; 10005

== ENCOUNTER → 2025-01-17 09:25 | Outpatient (REF) | payer OTHER, SELFPAY | LOC: RCS 09:25 | PROVIDERS: ATTENDING PHYSICIAN Internal Medicine Cardiovascular Disease; FAMILY PHYSICIAN Family Medicine | DX: I48.92 Unspecified atrial flutter (principal) | CPT/HCPCS: 93306; 93356 ==